=== PATIENT | female | born 1955 | race African-American/Black ===

== ENCOUNTER → 2016-03-19 | Outpatient (CLI) | payer OTHER ==
[~2016-03-19] VITALS: Ht 157.5 cm; Wt 86.2 kg
[~2016-03-19] MED LIST: ALEVE220 MG PO; AMITRIPTYLINE H25 M2 PO; ASPIRIN EC81 M1 PO; BENTYL 20 MG TA20 M1 PO; DAYPRO600 MG PO; DOXEPIN HCL100 MG PO; ENDOCET 10-3251 EACH PO; K-DUR10 MEQ PO; KLOR-CON 10 ER10 MEQ PO; LASIX 20 MG TAB20 MG PO; LASIX 40 MG TAB40 M1 PO; LISINOPRIL20 MG PO; LYRICA100 MG PO; LYRICA150 MG PO; MEDROLDOSEPACK PO; NEXIUM40 MG PO; OXYCODONE-ACET1 EAC2 PO; OXYCONTIN CR 8080 M1 PO; OXYCONTIN40 MG PO; OXYCONTIN60 MG PO; OXYCONTIN80 M1 PO; OXYCONTIN80 MG PO; PEPCID20 MG PO; PERCOCET 10-321 EACH PO; PHENERGAN 25 MG25 M1 PO; PREDNISONE50 MG PO; PROAIR HFA8.5 GM; REGLAN 5 MG TAB5 M1 GT; ZANAFLEX4 M1 PO
--- NOTE | ~2016-03-19 | HPC ---
[facility] [place] [address] PAIN MANAGEMENT CONSULTATION Name: VARUN ALAS Room #: REG [facility] German.#: [id number] Admission: 03/19/16 Attend Phys: Scooby Nathan MD Discharge: Date of : 59 Report #: [id number] THIS REPORT FOR: //name// CC: Bk Nathan DATE OF SERVICE: 03/19/2016 CHIEF COMPLAINT: Here for medication renewal. FOLLOWUP HISTORY: The patient is a 61-year-old female who has been followed in the pain clinic because of chronic pain secondary to the failed neck surgery as well as chronic low back pain. She has noted some increased pain and discomfort given the changes in the weather we are having at this juncture. She also felt that she may have injured her coccyx area. She sat down on a extension cord. This traumatized her coccyx area a bit. She has noted that over the last month or so, she had continued pain and discomfort in this area. She denies any bowel or bladder dysfunction, but does note some increased pain and discomfort and feels that it was secondary to sitting down abruptly on the extension cord. PHYSICAL EXAMINATION: Blood pressure 135/69, pulse 80, respiratory rate 16, room air saturation 95%. The patient's BMI is 34, weight 86 kg. The patient has not fallen since we saw her last. She continues to have pain and discomfort in the lower back, neck, right shoulder, left knee as well as in the buttocks area since the trauma. IMPRESSION: 1. 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 We will consider decreasing the patient's dose at the next visit. 2. Chronic low back pain with radicular history. 3. Chronic knee pain, not problematic today. 4. Pain in the sacrococcygeal area after sitting down traumatically on the extension cord. RECOMMENDATION: The patient will continue with her current medical regimen. A script for Lyrica 100 mg, 180 tablets have been dispensed, oxycodone 80 mg 30 tablets, oxycodone, tizanidine have all been written. We would like to thank you for letting us participate in her care. We hope she continues to improve. <ELECTRONICALLY SIGNED> By: Scooby Nathan MD 04/13/16 1018 [id number] Scooby Nathan MD /nt
[2016-03-19 11:53] VITALS: BP 135/69
== END ==
LOC: PAIN 07:06
DX: G89.29 Other chronic pain (principal); I10 Essential (primary) hypertension

== ENCOUNTER → 2016-05-14 | Outpatient (CLI) | payer OTHER ==
[~2016-05-14] VITALS: Ht 157.5 cm; Wt 87.1 kg
--- NOTE | ~2016-05-14 | HPC ---
[facility] [place] [address] PAIN MANAGEMENT CONSULTATION Name: VARUN ALAS Room #: REG KRYSTLE Narvaez#: [id number] Admission: 05/14/16 Attend Phys: Scooby Nathan MD Discharge: Date of : 59 Report #: [id number] THIS REPORT FOR: //name// CC: Bk Nathan DATE OF SERVICE: 05/14/2016 FOLLOWUP COMPLAINT: The pain down in my left leg is very bad. FOLLOWUP HISTORY: The patient is a 61-year-old female who has been followed in the pain clinic because of cervical radiculopathy status post failed surgery. She has failed neck syndrome. She has undergone fusion of her neck, but continues to have overall pain and discomfort involving her arm with numbness, tingling and weakness in her arm. She also has lumbar radiculopathy by history. This has been problematic over a number of years. She notes that her pain in the low back is more problematic today and causing a significant amount of pain and discomfort. She is experiencing pain in her upper back with radiation down into the left posterior thigh and down into her calf. She rates her pain as 10/10. The pain is so bad that she is unable to engage in activities of daily living. She would like to proceed with an epidural steroid injection. She has been recalcitrant to undergo this in the past because of fear. Pain has grown so great at this juncture that she was willing to proceed with an injection. PHYSICAL EXAMINATION: VITAL SIGNS: Blood pressure is 119/76, pulse 73, respiratory rate 20 and room air saturation is 100%. MUSCULOSKELETAL: The patient has pain and discomfort radiating down in her right shoulder. She also has pain in the left lower back with pain radiating down into the outside of her leg in the L5 distribution with involvement of her toes. IMPRESSION: 1. Chronic opioid therapy secondary to failed neck syndrome treated with opioid therapy. 2. Chronic knee pain. RECOMMENDATIONS: We discussed treatment options with the patient. At this juncture, we will continue to decrease her opioid use toward the CDC recommended level. She is at 60 mg b.i.d. of OxyContin. We will decrease this to 60 mg in the morning and 40 mg at bedtime. She will also continue with the use of Lyrica and Percocet 10/325 one p.o. q.i.d. as needed. PROCEDURE NOTE: The patient was placed in the prone position. Fluoroscopy was used to identify the left L5-S1 area. This area had been sterilely prepped with [address] [address] PAIN MANAGEMENT CONSULTATION Name: VARUN ALAS Room #: REG [facility] Rafiq.#: [id number] Admission: 05/14/16 Attend Phys: Scooby Nathan MD Discharge: Date of : 59 Report #: [id number] Betadine and infiltrated with 0.25% bupivacaine. A total of 80 mg Depo-Medrol, 40 mg triamcinolone and 2 mL of 0.25% bupivacaine was injected. The patient's pain decreased from 8 to 3 at the time of discharge. We would like to thank you for letting us participate in her care. We hope she continues to improve. <ELECTRONICALLY SIGNED> By: Scooby Nathan MD 05/20/16 0914 1603 2218 Scooby Nathan MD /nt
[2016-05-14 12:54] VITALS: BP 119/76
== END ==
LOC: PAIN 06:29
DX: M25.562 Pain in left knee (principal); I10 Essential (primary) hypertension

== ENCOUNTER → 2016-06-09 | Outpatient (CLI) | payer OTHER ==
[~2016-06-09] VITALS: Ht 157.5 cm; Wt 89.1 kg
--- NOTE | ~2016-06-09 | HPC ---
[facility] [place] [address] [place] [address] PAIN MANAGEMENT CONSULTATION Name: VARUN ALAS [id number] Admission: 06/09/16 Attend Phys: Scooby Nathan MD Discharge: Date of : 59 Report #: [id number] THIS REPORT FOR: //name// CC: EMMETT Nathan DATE OF SERVICE: 06/09/2016 FOLLOWUP COMPLAINT: "Here for my medications and my back pain is worse. The weather has changed." FOLLOWUP HISTORY: The patient is a 61-year-old female who has been followed in the pain clinic because of cervical radiculopathy and failed neck surgery. She also has lumbar radiculopathy. She underwent an epidural steroid injection at the last visit. She continues to have pain and discomfort, which she describes as quite problematic. She has pain in the lower portion of her back with pain radiating down to the left buttocks and down the posterior portion of her legs with numbness, weakness and tenderness. She underwent an epidural steroid injection at the last visit. She notes that her pain continues to be problematic. She is still having pain and discomfort radiating down into the leg and notes some numbness and weakness, particularly on the left side. She feels that her medications continue to be helpful and would like to have them renewed. PHYSICAL EXAMINATION: Blood pressure is 113/72, pulse 86, respiratory rate 16, room air saturation is 98%. The patient has pain and discomfort, which she describes as 8-9. It involves the lower portion of her back with pain radiating down into the legs toes and across her low back into her buttocks bilaterally. IMPRESSION: 1. Chronic opioid therapy secondary to failed neck syndrome. 2. Lumbar radiculopathy involving the L5-S1 nerve root down into the left leg, status post an epidural steroid injection with some benefit. 3. Chronic knee pain. RECOMMENDATIONS: We discussed treatment options with the patient. Risks and benefits of an epidural steroid injection were again reviewed. Possible complications were discussed. The patient continues to have pain and discomfort, which is problematic and radiates down at the L5-S1 nerve root. We discussed the option of another epidural steroid injection. Possibility of an MRI might be needed if the patient fails to improve. We explained to her that if her pain continue to be problematic, a surgical consult might prove [address] [address] PAIN MANAGEMENT CONSULTATION Name: VARUN ALAS Room #: REG CL[facility] Narvaez#: [id number] Admission: 06/09/16 Attend Phys: Scooby Nathan MD Discharge: Date of : 59 Report #: [id number] beneficial. At this juncture, she would like to continue with her conservative approach and will follow up in the next month for renewal of her medications. By: 1505 0114 Scooby Nathan MD /selena
[2016-06-09 11:10] VITALS: BP 113/72
== END | disposition home or self-care (01) ==
LOC: PAIN 07:50
DX: M54.16 Radiculopathy, lumbar region (principal); M54.12 Radiculopathy, cervical region; M25.569 Pain in unspecified knee

== ENCOUNTER → 2016-07-09 | Outpatient (CLI) | payer OTHER ==
[~2016-07-09] VITALS: Ht 157.5 cm; Wt 85.8 kg
[~2016-07-09] MED LIST changes: +IBUPROFEN 800800 M1 PO
--- NOTE | ~2016-07-09 | HPC ---
[facility] [place] [address] PAIN MANAGEMENT CONSULTATION Name: VARUN ALAS Room #: REG [facility]..#: [id number] Admission: 07/09/16 Attend Phys: Scooby Nathan MD Discharge: Date of : 59 Report #: [id number] THIS REPORT FOR: //name// CC: Bk Nathan She was seen on 07/09/[address] Valerio Nathan. PRIMARY CARE PHYSICIAN: Dr. Bk Moore. FOLLOWUP COMPLAINT: I had some trouble getting here because my ride was late. FOLLOWUP HISTORY: The patient is a 61-year-old female who has been seen and followed in the pain clinic because of chronic pain associated with failed neck syndrome. She also suffers from lumbar radiculopathy. She has been using opioid medication and find that they continued to be helpful. We have started to decrease her opioid levels to that, which is required by the CDC. She has had no complications from the reduction of her medications or from her medications at this juncture. She would like to have her medications renewed. She does feel that they continued her to engage in activities of daily living, she would not be able to without their use. She is taking the medication as prescribed. She keeps her medications away from children and in a guarded position at home. PHYSICAL EXAMINATION: Blood pressure is 100/62, pulse 73, respiratory rate 20, room air saturation 100, height 5 feet 2 inches, weight 157 pounds, BMI is 34. The patient has pain and discomfort in the lower back with radiation down into her left leg and buttocks. She also has neck pain, which is chronic in nature and it rates her pain overall as a 7/10. This is improved over the last couple of times we saw her. IMPRESSION: 1. Chronic opioid therapy for failed neck syndrome. 2. Lumbar radiculopathy involving the L5-S1 nerve root, status post epidural steroid injection. Reasonably stable at this juncture, may consider another injection in the future. 3. Chronic knee pain, stable. RECOMMENDATIONS: We discussed treatment options with the patient. We will continue to decrease her opioid use to that which is required by the CDC. We would like to thank you for letting us participate in her care. We hope she continues to improve. [address] [address] PAIN MANAGEMENT CONSULTATION Name: VARUN ALAS Room #: REG KRYSTLE Narvaez#: [id number] Admission: 07/09/16 Attend Phys: Scooby Nathan MD Discharge: Date of : 59 Report #: [id number] cc: Dr. Bk Moore. By: 1317 N. Valerio Nathan MD /nt
[2016-07-09 10:38] VITALS: BP 100/62
== END ==
LOC: PAIN 07:26
DX: M54.16 Radiculopathy, lumbar region (principal); G89.4 Chronic pain syndrome; I10 Essential (primary) hypertension; E11.9 Type 2 diabetes mellitus without complications

== ENCOUNTER → 2016-08-06 | Outpatient (CLI) | payer OTHER ==
[~2016-08-06] VITALS: Ht 157.5 cm; Wt 88.1 kg
--- NOTE | ~2016-08-06 | HPC ---
[facility] [place] [address] PAIN MANAGEMENT CONSULTATION Name: VARUN ALAS Room #: REG [facility] Solange#: [id number] Admission: 08/06/16 Attend Phys: Scooby Nathan MD Discharge: Date of : 59 Report #: [id number] THIS REPORT FOR: //name// CC: Bk Nathan DATE OF SERVICE: 08/06/2016 FOLLOWUP COMPLAINT: I am having a lot of pain in my right shoulder. I was given a compound to put on there, but [facility] say they could not do it. My sister gave me the name of a compounding pharmacy. The patient is a 61-year-old female who has been followed in the pain clinic because of chronic pain associated with failed neck syndrome. She has undergone cervical treatment a number of years ago. She continues to have pain and discomfort associated with that. She has some pain in her right shoulder, which is more problematic at this juncture. She was given a cream to apply to this area by her primary. At this juncture, she is awaiting the medication. She took it to [facility]. They were unable to finalize this. They were going to charge her over 900 dollars. She states that she has another pharmacy that was going to give it to her at a more reasonable anaya point. She feels that her medications continue to be helpful. She has had no complications from the reduction of her opioid medications. As we have described to her we will continue to decrease her opioid medications to get her into compliance with the [facility] requirements. She has returned today for renewal of her medications. She was taking OxyContin 60 mg a.m. and 40 mg at p.m. We have discussed decreasing her to 40 OxyContin b.i.d. PHYSICAL EXAMINATION: Blood pressure is 134/79, pulse 82, respiratory rate 16, room air saturation is 100%. Height 5 feet 2 inches, weight 157 pounds, BMI is 35.5. The patient complains of pain and discomfort involving particularly the right shoulder. She is able to put it through its range of motions and continues to try to increase her range of motion, but note some worsening of her pain. She is awaiting the use of the cream to her shoulder to note its efficacy. She rates her pain as an 8/10 at this juncture. Notes that changes in the weather, walking stairs and other activities can exacerbate her discomfort. IMPRESSION: 1. Chronic pain treated with opioid therapy for failed neck syndrome, opioid dose has been decreased by another 20 mg. Her total now is 40 mg OxyContin b.i.d. 2. Lumbar radiculopathy involving the L5-S1 nerve root. We will continue to monitor this and consider another epidural steroid injection in the future if needed. [address] [address] PAIN MANAGEMENT CONSULTATION Name: VARUN ALAS Room #: REG [facility].#: [id number] Admission: 08/06/16 Attend Phys: Scooby Nathan MD Discharge: Date of : 59 Report #: [id number] 3. Chronic knee pain, stable. RECOMMENDATIONS: We have rewritten her medications. The script for OxyContin 40 mg p.o. b.i.d. has been written. Percocet 10 mg 1 p.o. q.i.d. has been written. The patient will call us if she has any problems with her medications. We would like to thank you for letting us participate in her care. We hope she continues to improve. By: [id number] Scooby Nathan MD /selena
[2016-08-06 10:58] VITALS: BP 134/79
== END | disposition home or self-care (01) ==
LOC: PAIN 06:35
DX: M25.511 Pain in right shoulder (principal); M54.16 Radiculopathy, lumbar region; G89.29 Other chronic pain; M25.569 Pain in unspecified knee

== ENCOUNTER → 2016-09-01 | Outpatient (CLI) | payer OTHER ==
[~2016-09-01] VITALS: Ht 157.5 cm; Wt 87.6 kg
[2016-09-01 10:15] VITALS: BP 131/84
== END | disposition home or self-care (01) ==
LOC: PAIN 06:51
DX: G89.4 Chronic pain syndrome (principal); M54.16 Radiculopathy, lumbar region; M96.1 Postlaminectomy syndrome, not elsewhere classified; F11.20 Opioid dependence, uncomplicated; Z88.8 Allergy status to other drugs, medicaments and biological substances; Z79.82 Long term (current) use of aspirin; Z98.890 Other specified postprocedural states

== ENCOUNTER → 2016-09-29 | Outpatient (CLI) | payer OTHER ==
[~2016-09-29] VITALS: Ht 157.5 cm; Wt 88.6 kg
--- NOTE | ~2016-09-29 | HPC ---
[facility] [address] [address] PAIN MANAGEMENT CONSULTATION Name: VARUN ALAS [facility] [id number] Admission: 09/29/16 Attend Phys: Scooby Nathan MD Discharge: Date of : 59 Report #: [id number] THIS REPORT FOR: //name// CC: Bk Nathan DATE OF SERVICE: 09/29/2016 FOLLOWUP COMPLAINT: Things are going reasonably well. FOLLOWUP HISTORY: The patient is a 61-year-old female who has been seen in the pain clinic because of chronic pain involving the neck and low back area. She states that she has noted some improvement in her situation. For the first time in a long time, she feels that her pain is 6. She feels like she may be doing reasonably well. She has had no problems with withdrawal from her opioid medications. We explained to her that we need to move and continue to reduce her medications to that which has allowed by the CDC. She states that she continues keeps her medications in a guarded area. She would like to continue with her medication at this juncture. She has had no complications. She notes that when she wakes up in the morning she is somewhat uncomfortable, but after taking her medication she feels better and is able to accomplish more. PHYSICAL EXAMINATION: Blood pressure is 105/68, pulse 74, respiratory rate 16, room air saturation is 100%. Height 5 feet 2 inches, weight 195 pounds, BMI is 35. She has not fallen since we saw her. IMPRESSION: Chronic pain treated with opioid therapy. RECOMMENDATION: We will continue with the patient's current use of OxyContin 40 mg b.i.d., oxycodone 10 mg q.i.d. as needed, Lyrica 100 mg b.i.d. and tizanidine 4 mg t.i.d. as needed. She will call us if she has any problems with her medications. We would like to thank you for letting us participate in her care. We hope she continues to improve. By: [id number] Scooby Nathan MD /selena
[2016-09-29 11:07] VITALS: BP 105/68
== END | disposition home or self-care (01) ==
LOC: PAIN 07:29
DX: G89.29 Other chronic pain (principal); M54.5 Low back pain; M54.2 Cervicalgia; F11.20 Opioid dependence, uncomplicated; Z88.8 Allergy status to other drugs, medicaments and biological substances; Z79.82 Long term (current) use of aspirin; Z79.899 Other long term (current) drug therapy

== ENCOUNTER → 2016-12-03 | Outpatient (CLI) | payer OTHER ==
[~2016-12-03] VITALS: Ht 157.5 cm; Wt 91.6 kg
[~2016-12-03] MED LIST changes: +OXYCONTIN30 MG PO
--- NOTE | ~2016-12-03 | HPC ---
[facility] [address] [address] [place] [address] PAIN MANAGEMENT CONSULTATION Name: VARUN ALAS [id number] Admission: 12/03/16 Attend Phys: Scooby Nathan MD Discharge: Date of : 59 Report #: [id number] THIS REPORT FOR: //name// CC: Dr. Bk Nathan DATE OF SERVICE: 12/03/2016 FOLLOWUP COMPLAINT: "I am going to see the doctor about possibly having a surgery on my leg." FOLLOWUP HISTORY: The patient is a 61-year-old female who has been followed in the pain clinic because of chronic pain. She has had pain in her low back with pain radiating down into her legs. She states that she had an examination, which showed significant problems in her low back area. She is scheduled to see a neurosurgeon/surgeon for evaluation and possible surgery to help decrease the numbness, weakness and pain she is experiencing in the left lower extremity. She has been unable to rest because of this pain and discomfort. She is feeling somewhat upset and depressed secondary to her sons hospitalization. He was hospitalized in the Intensive Care Unit in [facility]. He suffers from asthma. He was on a ventilator for a period of time. He is out of the hospital at this juncture. She is still concerned about him. PHYSICAL EXAMINATION: Blood pressure 159/85, pulse 100, respiratory rate 20, room air saturation 100%. Height 5 feet 2 inches, weight 202 pounds, BMI is 36. The patient complains of pain and discomfort, which radiates down to the left leg with numbness, tingling and weakness down into the left leg. IMPRESSION: 1. Chronic pain treated with opioid therapy -- lumbar radicular pain involving the left leg. The patient will see a surgeon for possible surgery regarding the lower extremity pain in the next few days. 2. Chronic pain treated with opioid therapy. We have decreased her OxyContin from 40 mg b.i.d. to use 30 mg b.i.d. We would like to thank you for letting us participate in her care. We hope she continues to improve. By: 1602 0328 Scooby Nathan MD /ADI
[2016-12-03 11:02] VITALS: BP 159/85
== END | disposition home or self-care (01) ==
LOC: PAIN 11-03 13:11
DX: G89.29 Other chronic pain (principal); J45.909 Unspecified asthma, uncomplicated; Z68.36 Body mass index [BMI] 36.0-36.9, adult; M54.16 Radiculopathy, lumbar region

== ENCOUNTER → 2016-12-29 | Outpatient (CLI) | payer OTHER ==
[~2016-12-29] VITALS: Ht 157.5 cm; Wt 89.9 kg
--- NOTE | ~2016-12-29 | HPC ---
[facility] [address] [address] PAIN MANAGEMENT CONSULTATION Name: VARUN ALAS Room #: REG [facility] Narvaez#: [id number] Admission: 12/29/16 Attend Phys: Scooby Nathan MD Discharge: Date of : 59 Report #: [id number] THIS REPORT FOR: //name// CC: Bk Nathan DATE OF SERVICE: 12/29/2016 FOLLOWUP COMPLAINT: "I am thinking about going on cruise." FOLLOWUP HISTORY: The patient is a 61-year-old female who has been followed in the pain clinic. As you recall, she has chronic pain involving her neck as well as low back pain. She has seen a surgeon. She has undergone an EMG evaluation recently. She continues to have pain and discomfort in the lower back as well as in the left leg. She rates her pain as a 9/10. She has difficulty walking stairs and notes that cold weather exacerbates her discomfort. She is considering going to [place] where the weather is a bit warmer this winter to note its efficacy. PHYSICAL EXAMINATION: Blood pressure 147/92, pulse 82, respiratory rate 20, room air saturations 100. Height 5 feet 2 inches, weight 198 pounds, BMI is 36. She states that she is continuing to use her medications as prescribed. She is not having any sedation problems or limitation problems. IMPRESSION: 1. Chronic pain treated with opioid therapy -- lumbar radicular pain involving the left leg. She had an EMG study and is going to follow up with her doctor in the near future. 2. Chronic pain treated with opioid therapy. RECOMMENDATION: We will consider decreasing her OxyContin to 30 mg p.o. b.i.d. We would like to thank you for letting us participate in her care. We hope she continues to improve. <ELECTRONICALLY SIGNED> By: Scooby Nathan MD 12/31/16 0825 1240 0054 Scooby Nathan MD /[facility]
[2016-12-29 10:51] VITALS: BP 147/92
== END ==
LOC: PAIN 06:45
DX: M54.5 Low back pain (principal); M54.2 Cervicalgia

== ENCOUNTER → 2017-02-25 | Outpatient (CLI) | payer OTHER ==
[~2017-02-25] VITALS: Ht 157.5 cm; Wt 85.7 kg
[~2017-02-25] MED LIST changes: +ADVAIR 250-501 EACH INH; +ASPIRIN325 PO; +LASIX 40 MG TAB40 M2 PO; +OXYCONTIN20 M1 PO; +ZANAFLEX4 MG PO; +ZANTAC 150MG T150 MG PO
--- NOTE | ~2017-02-25 | HPC ---
[facility] [address] [address] PAIN MANAGEMENT CONSULTATION Name: VARUN ALAS Room #: REG [facility]..#: [id number] Admission: 02/25/17 Attend Phys: Scooby Nathan MD Discharge: Date of : 59 Report #: [id number] THIS REPORT FOR: //name// CC: Bk Nathan DATE OF SERVICE: 02/25/2017 FOLLOWUP COMPLAINT: "I am feeling better than I did with my cold and asthma the last visit." FOLLOWUP HISTORY: The patient is a 62-year-old female who has been followed in the pain clinic because of chronic pain. She has improved since we saw her last. She is having less pulmonary problems. She is getting her voice back. She has less laryngitis. She continues to have pain and discomfort radiating down the lower portion of her back. She states that she has been told by her physician that she does have a little bit of bulging in the back area, which could be treated with surgery. At this point, she is going to continue conservative approach. Notes that her pain is worse when she is walking stairs. She has noted worsening of her pain because of the weather. She also notes some changes in her pain because we are decreasing her opioid equivalent to that which is required by the CDC. She has had no complications from use of her medications. PHYSICAL EXAMINATION: Blood pressure 112/48, pulse 78, respiratory rate 14, room air saturation 98%. Height 5 feet 2 inches, weight 189 pounds, BMI is 34. The patient has pain and discomfort in the lower portion of her back with pain radiating down into her left leg and to buttocks area. She continues to have pain and discomfort up in her neck, status post rods and screws in the neck area for stabilization. IMPRESSION: 1. Improved upper respiratory tract infection. 2. Chronic pain to lumbar radicular area - the patient states that she would like to continue with her conservative approach rather than proceeding with surgery on her back. 3. History of cervical fusion in the neck and has arm pain. RECOMMENDATIONS: We will continue with her current medications of OxyContin 30 mg b.i.d. and a script for this medication has been written. She will call us if she has any problems with her medications. [address] [address] PAIN MANAGEMENT CONSULTATION Name: VARUN ALAS [facility] [id number] Admission: 02/25/17 Attend Phys: Scooby Nathan MD Discharge: Date of : 59 Report #: [id number] We would like to thank you for letting us participate in her care. We hope she continues to improve. <ELECTRONICALLY SIGNED> By: Scooby Nathan MD 05/18/17 1121 1608 0118 Scooby Nathan MD /selena
[2017-02-25 11:37] VITALS: BP 112/48
== END ==
LOC: PAIN 07:45
DX: G89.29 Other chronic pain (principal); M54.5 Low back pain; J45.909 Unspecified asthma, uncomplicated; J06.9 Acute upper respiratory infection, unspecified

== ENCOUNTER → 2017-03-25 | Outpatient (CLI) | payer OTHER ==
[~2017-03-25] VITALS: Ht 157.5 cm; Wt 88.6 kg
--- NOTE | ~2017-03-25 | HPC ---
[facility] [place] [address] PAIN MANAGEMENT CONSULTATION Name: VARUN ALAS Room #: REG [facility]..#: [id number] Admission: 03/25/17 Attend Phys: Scooby Nathan MD Discharge: Date of : 59 Report #: [id number] THIS REPORT FOR: //name// CC: Bk Nathan DATE OF SERVICE: 03/25/2017 FOLLOWUP COMPLAINT: "I feel like my cold might be getting worse." FOLLOWUP HISTORY: The patient is a 62-year-old female who has been followed in the pain clinic because of chronic pain involving her low back, as well as the cervical area. She states that she does have asthma. The weather has changed. She went to see her physician. She was given some antibiotics and a steroid dosing protocol per her report. She feels overall the things continue to get worse. She has stopped taking these medications. She has continued to take her asthma medications. She has not had a flu shot. Rates her pain as an 8-9. She is having pain and discomfort in the lower portion of her back, which radiates down into her left leg and buttocks. Also, has chronic neck pain with a sharp aching and shooting pain, burning pain with spasms. Pain is worse with the change in the weather. The temperature outside has been in the single digits. ALLERGIES: CODEINE. CURRENT MEDICATIONS: Tizanidine 4 mg 1 p.o. t.i.d., Lyrica 100 mg, oxycodone 325 one p.o. q. 6 hours p.r.n., OxyContin 30 mg 1 p.o. b.i.d., ibuprofen 800 mg, albuterol 8.5 mg, doxycycline 20 mg 4 times daily, Phenergan 25 mg once b.i.d. or t.i.d., potassium 10 mEq, aspirin 81 mg, lisinopril 20 mg. PHYSICAL EXAMINATION: VITAL SIGNS: Blood pressure 103/49, pulse 75, respiratory rate 16, room air saturation 95%. Height 5 feet 2 inches, weight 195 pounds, BMI is 35. GENERAL: Well-developed, well-nourished female, appears her stated age. Orientation: Alert and oriented, affect appropriate. HEENT: Atraumatic. Eyes are a little red. Sclerae are nonicteric. The patient does cough a bit. EXTREMITIES: Midline seems to be normal alignment without scoliosis or kyphosis. The patient walks slow motion. Walks in a slightly bent over gait. Complains of pain and discomfort in the lower portion of back as well as in the neck area. Complains of pain down in the legs. IMPRESSION: 1. Lumbar radiculopathy and chronic pain, history of cervical fusion with pain and discomfort in the neck and arms. 2. Upper respiratory tract infection. [facility] [address] [place] [address] PAIN MANAGEMENT CONSULTATION Name: VARUN ALAS Room #: REG [facility].#: [id number] Admission: 03/25/17 Attend Phys: Scooby Nathan MD Discharge: Date of : 59 Report #: [id number] RECOMMENDATIONS: We discussed treatment options with the patient. The patient denies use of tobacco. We explained that the flu is an epidemic proportions at this juncture. It is nationwide. The patient states that she has not gotten a flu shot. We encouraged her to do so. We reviewed reminded her of the number of people who are dying at this juncture even those who are in good health as a result of flu. The patient states that she has been trying to stay total wrist without being around people at this juncture. She finds that her medications continue to be helpful. She is still concerned about her breathing and will follow up with her primary care to see whether or not there are other options to improve her breathing. She has not had any fever, chills or anything that would make her think that she has flu at this juncture. We have given the patient a number of mass to wear when she is out in the public. She has also been given some rubber glove to wear. We did spoke with her and reminded her that if she did not need to go out in the public, she probably would feel much better if she had family members to bring her items until this flu season starts to kasie. A script for her medications of Lyrica, Percocet and OxyContin have been written. The patient will follow up in the future as needed. We would like to thank you for letting us participate in her care. We hope she continues to improve. <ELECTRONICALLY SIGNED> By: Scooby Nathan MD 04/08/17 1332 1416 [id number] Scooby Nathan MD /[facility]
[2017-03-25 10:20] VITALS: BP 103/49
== END ==
LOC: PAIN 06:50
DX: M54.16 Radiculopathy, lumbar region (principal); J45.909 Unspecified asthma, uncomplicated; J06.9 Acute upper respiratory infection, unspecified

== ENCOUNTER → 2017-04-27 | Outpatient (CLI) | payer OTHER ==
[~2017-04-27] VITALS: Ht 157.5 cm; Wt 91.2 kg
--- NOTE | ~2017-04-27 | HPC ---
[facility] [address] [address] PAIN MANAGEMENT CONSULTATION Name: VARUN ALAS [id number] Admission: 04/27/17 Attend Phys: Scooby Nathan MD Discharge: Date of : 59 Report #: [id number] THIS REPORT FOR: //name// CC: Bk Nathan DATE OF SERVICE: 04/27/2017 FOLLOWUP COMPLAINT: The pain is still bad. FOLLOWUP HISTORY: The patient is a 62-year-old female who has been followed in the pain clinic. As you recall, she suffers from upper neck pain. She has had a significant hardware in the neck area. She also has pain and discomfort, which has been radiating down into her legs. It involves her buttocks. She also continues to have some pain and discomfort with her knees. Rates her pain as an 8.5. She continues to take her medications. She feels that the opioid medications, continue to enable her to be ambulatory and able to participate in activities of daily living. She lives alone. Notes that the pain has worsened with walking, climbing stairs, particularly in this bad weather. She has been trying to stay out of the public. Given the prevalence of flu virus. She has asthma. Feels that her asthma is about baseline at this juncture, but still problematic. Finds that rest, heat and cold can sometimes be helpful. She sometimes takes Epsom salt baths. States that she keeps her medications in a guarded area. She is mindful of the changes that are taking place in regards to use of opioid medications. We described the need for her to continue to have her medications lowered to the [facility] guidelines. She has furosemide 40 mg oxycodone tablets at home. We have discussed using an additional 20 mg oxycodone, so that we will bring her down to a level of 60 mg per day. According to with her other opioid medications should work reasonably well without any signs of withdrawal. She states that she does not have any signs of withdrawal. She does not feel that these medications are problematic with her asthma. ALLERGIES: CODEINE. MEDICATIONS: Current medications which were reviewed include tizanidine 4 mg 1 p.o. t.i.d., Lyrica 100 mg, oxycodone 325 mg one p.o. q. 6 hours p.r.n., OxyContin 30 mg 1 p.o. b.i.d., ibuprofen 800 mg, albuterol 8.5, doxycycline 20 mg q.i.d., Phenergan 25 mg p.o. b.i.d. or t.i.d. as needed, potassium 10 mEq, aspirin 81 mg and her lisinopril 20 mg. PHYSICAL EXAMINATION: GENERAL: The patient is a well-developed female, appears her stated age. ORIENTATION: The patient is alert and oriented x 3. Affect the patient's affect appears appropriate. [address] [address] PAIN MANAGEMENT CONSULTATION Name: BISHOPVARUN ROCKY Room #: REG [facility]#: [id number] Admission: 04/27/17 Attend Phys: Scooby Nathan MD Discharge: Date of : 59 Report #: [id number] HEENT: Normocephalic, atraumatic. Extraocular eye muscles intact. No significant congestion, hearing within normal limits. Buccal membranes moist. NECK: Somewhat limited in his range of motion left and right as well as extension and flexion. MUSCULOSKELETAL: Normal alignment without significant scoliosis, kyphosis or lordosis. The patient does walk with a slow and antalgic walk. Has a slight stuporous bent over walking position. Complains of pain and discomfort in lower extremities as well as in her back. Complains of pain in her neck legs. Also complains of knee pain and discomfort. IMPRESSION: 1. History of lumbar radiculopathy with back pain. 2. History of cervical fusion with pain and discomfort in the upper neck and arms. 3. Upper respiratory tract infection in the past. The patient to stay out of the public areas. Given that the fluid is quite problematic. 4. Hypertension. RECOMMENDATIONS: We discussed treatment options with the patient. The patient has 40 mg oxycodone tablets at home. She has a month's worth. We will provide her with 20 mg oxycodone tablets. She will take 40 mg in the morning and 20 mg in the evening. That in conjunction with her additional opioid medication should prevent her from having any withdrawals. We will strive to decrease her level to 50 mg OxyContin per day at the next visit. We have provided the patient with Percocet and the OxyContin. She will call us if she has any problems with her medications. We would like to thank you for letting us participate in her care. If we could place pain clinic. ASSESSMENT: 1. History of osteoarthritis in a number of joint not being treated for rheumatoid arthritis. 2. Height 5 feet 2 inches, weight 201 pounds, BMI 36. 3. Vital Signs: Blood pressure 117/75, pulse 80, respiratory rate 16, room air saturation 97%. 4. Pain intensity 8/10. 5. Fall risk. The patient fell and is seen an orthopedic surgeon. This was within the last 3 months. 6. The patient is not on blood thinners. 7. The patient is being treated for hypertension. 8. Opioid contract, patient has signed a contract on 10/24/2015. New contract has been signed. This signed in the future. 9. Risk assessment tool. 10. Functional assessment tool in regards to general activity, mood, walking, work relationships, sleep and environment. 11. Opioid risk assessment tool indicates 1/8, which indicates a low risk. 12. Recreational drugs. The patient denies use of any recreational drugs. [facility] [address] [place] [address] PAIN MANAGEMENT CONSULTATION Name: VARUN ALAS Room #: REG [facility]#: [id number] Admission: 04/27/17 Attend Phys: Scooby Nathan MD Discharge: Date of : 59 Report #: [id number] 13. Tobacco: The patient has never smoked. 14. Alcohol: The patient denies use of any alcoholic beverages. <ELECTRONICALLY SIGNED> By: Scooby Nathan MD 05/18/17 1434 0910 [id number] Scooby Nathan MD /[facility]
[2017-04-27 10:59] VITALS: BP 117/75
== END ==
LOC: PAIN 06:52
DX: M54.16 Radiculopathy, lumbar region (principal); I10 Essential (primary) hypertension; J06.9 Acute upper respiratory infection, unspecified; M54.2 Cervicalgia; Z88.5 Allergy status to narcotic agent

== ENCOUNTER → 2017-05-25 | Outpatient (CLI) | payer OTHER ==
[~2017-05-25] VITALS: Ht 157.5 cm; Wt 91.4 kg
[~2017-05-25] MED LIST changes: -ADVAIR 250-501 EACH INH; -ASPIRIN325 PO; -LASIX 40 MG TAB40 M2 PO; -ZANAFLEX4 MG PO; -ZANTAC 150MG T150 MG PO
--- NOTE | ~2017-05-25 | HPC ---
[facility] [place] [address] PAIN MANAGEMENT CONSULTATION Name: VARUN ALAS Room #: REG Kary Porter.#: [id number] Admission: 05/25/17 Attend Phys: Scooby Nathan MD Discharge: Date of : 59 Report #: [id number] THIS REPORT FOR: //name// CC: Dr. Bk Nathan DATE OF SERVICE: 05/25/2017 FOLLOWUP COMPLAINT: Here for medication refill. Have worsening of pain in the neck, shoulders, and mid back. FOLLOWUP HISTORY: The patient is a 62-year-old female who has been followed in the pain clinic because of chronic pain. As you recall, she has significant problems with her neck. She has had fusion with instrumentation. She continues to have pain and discomfort in the lower portion of her back, which radiates down into her legs. States that she is having more difficulty in ambulating and engage in activities of daily living because of her increasing pain and discomfort. She feels that her medications are helpful. She denies any problems with the medications. She did not have any significant bowel or bladder dysfunction. She does note that since the weather has changed she has had more pain and discomfort. Her asthma appears to be baseline at this juncture. She is aware of the new regulations regarding opioid medications. She is aware that we will have to continue to decrease her medications to get her in compliance. She is planning on going on vacation this summer. She would like to have her medications provided that she could take them with her during the next 3 months. ALLERGIES: CODEINE. REVIEW OF MEDICATIONS: Tizanidine 4 mg 1 p.o. t.i.d., Lyrica 100 mg, oxycodone 325 one p.o. every 6 hours p.r.n. pain, OxyContin 30 mg 1 p.o. b.i.d., ibuprofen 800 mg, albuterol 8.5, doxycycline 20 mg q.i.d., Phenergan 25 mg p.o. b.i.d./t.i.d. as needed, potassium 10 mEq, aspirin 81 mg, lisinopril 20 mg. PHYSICAL EXAMINATION: GENERAL: The patient is a well-developed black female. She appears her stated age. Does complain of some increased pain and discomfort today because of changing weather. ORIENTATION: The patient is alert and oriented x 3. The patient's affect is appropriate. HEAD, EYES, EARS, NOSE, AND THROAT: Normocephalic, atraumatic. Extraocular eye muscles intact. No significant congestion. Hearing within normal limits. Moist buccal membranes. Neck somewhat limited in range of motion to the left, right as well as extension and flexion. MUSCULOSKELETAL: The patient walks with a somewhat forward flex posture. [address] [address] PAIN MANAGEMENT CONSULTATION Name: VARUN ALAS Room #: REG [facility].#: [id number] Admission: 05/25/17 Attend Phys: Scooby Nathan MD Discharge: Date of : 59 Report #: [id number] Normal muscle alignment without significant scoliosis, kyphosis or lordosis. Lower extremity, the patient does complain of some increased pain and discomfort in the lower portion of her back with radiation down into her legs. Complains of some pain and discomfort in the upper neck as well as in her legs. Has some knee discomfort as well. IMPRESSION: 1. History of lumbar radiculopathy with back pain. 2. History of cervical fusion with pain and discomfort in the upper neck and arms. 3. Upper respiratory tract infection in the past, asthma, stable today. 4. Hypertension. RECOMMENDATIONS: We discussed treatment options with the patient. We will continue with her OxyContin. She will be provided her medications of 30 mg p.o. b.i.d. this month. We will then start to move toward the 20 mg decreased per month in her medications. She will monitor herself for any withdrawal. ASSESSMENT: 1. History of osteoarthritis and number of joints and the patient is not currently being treated for rheumatoid arthritis. 2. Height 5 feet 2 inches, weight 201 pounds, BMI is 36. 3. Vital signs: Blood pressure 121/81, pulse 86, respiratory rate 16 on room air saturation 97%. 4. Pain intensity 8/10. 5. Fall risk. The patient has not fallen in the last 3 months. 6. The patient is not on a blood thinner. 7. The patient is being treated for hypertension. 8. Opioid contract. The patient has contracted and gets her medications only from the pain clinic. 9. Risk assessment tool rated as 1/8 which is considered mild low risk. 10. The patient denies use of recreational drugs. 11. Tobacco: The patient has never smoked. 12. Alcohol. The patient denies use of alcoholic beverages. We would like to thank you for letting us to participate in her care. We hope she continues to improve. <ELECTRONICALLY SIGNED> By: Scooby Nathan MD 06/03/17 0825 0912 [id number] Scooby Nathan MD /[facility]
[2017-05-25 11:21] VITALS: BP 121/81
== END ==
LOC: PAIN 06:51
DX: M54.2 Cervicalgia (principal); M54.5 Low back pain; M25.511 Pain in right shoulder; M25.512 Pain in left shoulder; M54.16 Radiculopathy, lumbar region; I10 Essential (primary) hypertension; Z79.891 Long term (current) use of opiate analgesic

== ENCOUNTER → 2017-06-22 | Outpatient (CLI) | payer OTHER ==
[~2017-06-22] VITALS: Ht 157.5 cm; Wt 90.8 kg
--- NOTE | ~2017-06-22 | HPC ---
[facility] [place] [address] PAIN MANAGEMENT CONSULTATION Name: VARUN ALAS Room #: REG Kary Solange#: [id number] Admission: 06/22/17 Attend Phys: Scooby Nathan MD Discharge: Date of : 59 Report #: [id number] THIS REPORT FOR: //name// CC: Bk Nathan DATE OF SERVICE: 06/22/2017 FOLLOWUP COMPLAINT: "I did go on my first trip. Still having some pain and discomfort, which has gotten worse with the weather change." FOLLOWUP HISTORY: The patient is a 62-year-old female, who has been followed in the pain clinic because of chronic pain. As you recall, she has had fusion of her neck with instrumentation. Continues to have pain and discomfort in the upper extremity. Also, has pain and discomfort, which radiates down into her low back and into her legs. She has had some discomfort in the neck area down in her shoulders and mid back. Feels that her medications are helpful. She has noted some decreased pain relief. We have decreased her medication over the past few months. She feels at this juncture that we should leave the medication at its current level to help her remain functional. She does have another couple of vacation she would like to attend. Feels that if we decrease her medication before that time that she would not be able to go on to vacation and get much jolly out of this. Denies any problems with her medications. Feels that her sensorium is clear. Keeps her medications in a controlled environment. She is aware of the media reports regarding use of opioids and the problems that they can cause. We would like to continue with her current medication renewal. States that she is taking them as prescribed. ALLERGIES: CODEINE. MEDICATIONS: Tizanidine 4 mg 1 p.o. t.i.d., Lyrica 100 mg, oxycodone 325 one p.o. every 6 hours p.r.n. pain, OxyContin 30 mg 1 p.o. b.i.d., ibuprofen 800 mg, albuterol 8.5, doxycycline 20 mg q.i.d., Phenergan 25 mg p.o. b.i.d./t.i.d. as needed, potassium 10 mEq, aspirin 81 mg, lisinopril 20 mg. PAIN CLINIC ASSESSMENT: 1. History of osteoarthritis. The patient feels that she has significant osteoarthritic changes in her hips, back, shoulders as well as some changes in her neck as a result of instrumentation and fusion of her neck. 2. Height 5 feet 2 inches, weight 200 pounds, BMI is 36.6. 3. VITAL SIGNS: Blood pressure 123/82, pulse 86, respiratory rate 20, room air saturation 100%. 4. Pain intensity 10/10. 5. Fall risk. The patient has not fallen in the last 3 months. She continues to be followed by her orthopedic surgeon. [address] [address] PAIN MANAGEMENT CONSULTATION Name: VARUN ALAS [id number] Admission: 06/22/17 Attend Phys: Scooby Nathan MD Discharge: Date of : 59 Report #: [id number] 6. Blood thinner. The patient is not on a blood thinner. 7. History of hypertension. The patient is being treated for hypertension. 8. Opioid therapy greater than 6 weeks. The patient is receiving opioid therapy through the pain clinic and gets her medication from one source. 9. Risk assessment tool, low. 10. Functional assessment tool, 51/, showing impact of her pain on her daily activities. 11. Recreational drug use. Denies ever using recreational drugs. 12. Tobacco: The patient has never smoked. 13. Alcohol. The patient denies use of alcoholic beverages. PHYSICAL EXAMINATION: GENERAL: The patient is a well-developed black female. She appears her stated age. She complains of increasing pain and discomfort today because of change in the weather. Orientation: The patient is alert and oriented x 3. The patient's affect is appropriate. Speech is fluent. HEENT: Normocephalic, atraumatic. Extraocular eye muscles intact. Sclerae nonicteric, Hearing is within normal limits. Mucous membranes are moist. MUSCULOSKELETAL: The patient walks with a somewhat forward flexed posture. Walks in a very stiff manner. Complains of pain and discomfort in the lower portion of her back as well as down into her legs with some discomfort in the area of the knees. No significant scoliosis, kyphosis or lordosis. The patient has some pain in the upper extremities and complains of pain and discomfort in her arms and down into her hands. IMPRESSION: 1. History of cervical fusion with continued pain in the upper extremity and in her arms. 2. History of lumbar radicular pain involving the low back area. 3. Upper respiratory problems with asthma, stable today. 4. Hypertension. RECOMMENDATIONS: We discussed treatment options with the patient. We will continue with her current use of OxyContin. We will continue over the next few months to decrease the patient's medication level to that which is required by the CDC. She states that she would like to remain at this level for this next period, so that she can complete her vacation tour. A prescription for OxyContin 30 mg 1 p.o. b.i.d. and Percocet 10/325 one p.o. q.i.d. have been written. The patient will call us if she has any problems with her medications. We would like to thank you for letting us participate in her care. We hope she continues to improve. <ELECTRONICALLY SIGNED> By: Scooby Nathan MD 06/28/17 0823 1325 16 Scooby Nathan MD /nt
[2017-06-22 10:39] VITALS: BP 123/82
== END ==
LOC: PAIN 06:56
DX: I10 Essential (primary) hypertension (principal); G89.29 Other chronic pain; F11.90 Opioid use, unspecified, uncomplicated

== ENCOUNTER → 2017-07-22 | Outpatient (CLI) | payer OTHER ==
[~2017-07-22] VITALS: Ht 157.5 cm; Wt 87.8 kg
--- NOTE | ~2017-07-22 | HPC ---
[facility] [place] [address] PAIN MANAGEMENT CONSULTATION Name: VARUN ALAS Room #: REG BABSKary Narvaez#: [id number] Admission: 07/22/17 Attend Phys: Scooby Nathan MD Discharge: Date of : 59 Report #: [id number] THIS REPORT FOR: //name// CC: Bk Nathan DATE OF SERVICE: 07/22/2017 FOLLOWUP COMPLAINT: "I am going to go on a cruise." FOLLOWUP HISTORY: The patient is a 62-year-old female, who has been followed in the pain clinic because of chronic pain involving her neck. As you recall, she has instrumentation in place. There has been fusion of a number of vertebrae. She also has pain and discomfort in her back, which radiates down into the posterior portion of her legs. She has some generalized pain and myofascial discomfort as well. Finds that her medications continue to be helpful. She rates her pain as a 7/10. She is quite excited regarding the imminent cruise. She states that she is going to stop it about 5 different places including [place] in the [facility]. She has some pain and discomfort involving her right shoulder. Feels that there is some increased pain as well as problems with the right shoulder. She feels that she is dropping items because of this. She denies any new bowel or bladder dysfunction. She has had no problems with her medications. Feels that she is thinking clearly without fogginess. No new problems with bowel or bladder complaints. States that she continues to keep her medications in a guarded area. She is aware of the possible complications of opioid use, which could include addiction as well as tolerance. Feels that her medications are working reasonably well and would like to continue their use. ALLERGIES: CODEINE. MEDICATIONS: Tizanidine 4 mg 1 p.o. t.i.d., Lyrica 100 mg, oxycodone 325 one p.o. q. 6 hours p.r.n. pain, OxyContin 30 mg 1 p.o. b.i.d., ibuprofen 800 mg, albuterol 8.5, doxycycline 20 mg q.i.d., Phenergan 25 mg p.o. b.i.d., t.i.d. as needed, potassium 10 mEq, aspirin 81 mg, lisinopril 20 mg. PAIN CLINIC ASSESSMENT: 1. History of osteoarthritis. The patient does have some significant osteoarthritic changes in her neck. She has had surgery with instrumentation and fusion. Complains of pain and discomfort, which is worsening on her right shoulder. 2. Height 5 feet 2 inches, weight 193 pounds, BMI 35. 3. VITAL SIGNS: Blood pressure 113/70, pulse 70, respiratory rate 20, room air saturation 100%. 4. Pain intensity 09/13. 5. Fall risk. The patient has not fallen in the last 3 [place] [address] PAIN MANAGEMENT CONSULTATION Name: VARUN ALAS Room #: REG CLKary Narvaez#: [id number] Admission: 07/22/17 Attend Phys: Scooby Nathan MD Discharge: Date of : 59 Report #: [id number] 6. Blood thinner. The patient is not on a blood thinning agent. 7. Hypertension. The patient is being treated for hypertension. 8. Opioid therapy greater than 6 weeks. The patient gets her medication from one source which is the pain clinic. 9. Risk assessment, low for an opioid use. 10. Functional assessment tool, 51/70 indicating moderate problems with activities of daily living secondary to the pain. 11. Tobacco use. The patient denies use of tobacco. 12. Alcohol: The patient denies frequent use of alcoholic beverages. PHYSICAL EXAMINATION: GENERAL: The patient is a well-developed, well-nourished black female. She appears her stated age. She is alert and oriented x 3. Affect is appropriate. Speech is fluent. HEENT: Normocephalic, atraumatic. Extraocular eye muscles intact. Sclerae nonicteric. Hearing is within normal limits. Mucous membranes are moist. HEART: Regular rate. S1, S2. NECK: Some limitation in motion with flexion, extension, left and right lateral rotation since the fusion in the cervical area. The patient has pain and discomfort involving the right shoulder. She is contemplating an x-ray to have it evaluated for pathology. The low back area without significant kyphosis, lordosis or scoliosis. The patient does walk with slow and somewhat antalgic walk. IMPRESSION: 1. History of cervical fusion with continued pain in the upper extremity and worsening of pain in the right arm/shoulder. 2. History of lumbar radicular pain involving the low back. 3. Upper respiratory problems with asthma - stable today. 4. Hypertension. RECOMMENDATIONS: We discussed treatment options with the patient. At this juncture, we will continue with her current medications. She received her medications early, given that she is going to go on vacation. She will take the medications as prescribed. She will call us if she has any problems or concerns. Overall, things are going reasonably well and the patient has been dispensed tizanidine 4 mg p.o. t.i.d., Lyrica 100 mg, oxycodone 10/325, 120 tablets, OxyContin 30 mg 1 p.o. b.i.d. We would like to thank you for letting us participate in her care. We hope she continues to improve. By: [id number] Scooby aNthan MD /nt
[2017-07-22 10:47] VITALS: BP 113/73
== END ==
LOC: PAIN 07:22
DX: M54.16 Radiculopathy, lumbar region (principal); M54.12 Radiculopathy, cervical region; J45.909 Unspecified asthma, uncomplicated; I10 Essential (primary) hypertension; Z88.5 Allergy status to narcotic agent

== ENCOUNTER → 2017-08-19 | Outpatient (CLI) | payer OTHER ==
[~2017-08-19] VITALS: Ht 157.5 cm; Wt 90.9 kg
--- NOTE | ~2017-08-19 | HPC ---
[facility] [place] [address] PAIN MANAGEMENT CONSULTATION Name: VARUN ALAS Room #: REG KRYSTLE Solange#: [id number] Admission: 08/19/17 Attend Phys: Scooby Nathan MD Discharge: Date of : 59 Report #: [id number] THIS REPORT FOR: //name// CC: Bk Nathan DATE OF SERVICE: 08/19/2017 FOLLOWUP COMPLAINT: "Still excited about going on my cruise. My asthma has gotten worse." FOLLOWUP HISTORY: The patient is a 62-year-old female who has been followed in the Pain Clinic for quite a number of years. Has chronic pain involving her neck. As you recall, she has a fusion of the neck with plates and instruments in the upper neck area. She also has pain and discomfort in her low back area, which radiates down into her legs. She has noticed some increased swelling in her legs bilaterally. States that she was walking and felt that she somewhat turned her right ankle. It has been quite problematic. She does not feel that she broke anything, but may have stressed and strained some ligaments. She is becoming more excited with the thought of going on her vacation on a cruise ship. She denies any bowel or bladder dysfunction. The patient feels like she is thinking clearly. Has not had any problems with her bowel or bladder dysfunction. She feels like her medications continue to be helpful. Continues to see more and more information in the media in regards to use of opioids, their abilities cause addiction as well as development of tolerance. She feels that her medications are working reasonably well and would like to continue their use. ALLERGIES: CODEINE. MEDICATIONS: Tizanidine 4 mg 1 p.o. t.i.d., Lyrica 100 mg, oxycodone one p.o. q. 6 hours p.r.n., OxyContin 30 mg 1 p.o. b.i.d., ibuprofen 800 mg, albuterol, doxycycline 20 mg q.i.d., and Phenergan 25 mg b.i.d. to t.i.d. PAIN CLINIC ASSESSMENT: 1. History of osteoarthritis. The patient has some osteoarthritic changes in her neck. Has instrumentation with fusion, pain in the shoulder, the right. 2. Height 5 feet 2 inches, weight 200 pounds, BMI is 36. 3. VITAL SIGNS: Blood pressure 110/65, respiratory rate 16, room air saturations 100%, pain intensity 9/10. 4. Fall risk. The patient has not fallen in the last 3 months. 5. Blood thinner. The patient is not a blood thinning medication. 6. Hypertension. The patient is being treated for hypertension. 7. Opioid therapy greater than a week. The patient receives her medication on a regular basis from the Pain Clinic. 8. Risk assessment, low for opioid use. [address] [address] PAIN MANAGEMENT CONSULTATION Name: VARUN ALAS Room #: REG [facility] [id number] Admission: 08/19/17 Attend Phys: Scooby Nathan MD Discharge: Date of : 59 Report #: [id number] 9. Functional assessment tool 57 indicating moderate problems with activities of daily living secondary to pain. 10. Tobacco use. The patient denies use of tobacco use. 11. Alcohol: The patient denies frequent use of alcoholic beverages. PHYSICAL EXAMINATION: GENERAL: The patient is a well-developed, well-nourished black female. She appears her stated age. She is alert and oriented x 3. Her affect is appropriate. Speech is fluent. HEENT: Normocephalic, atraumatic. Extraocular eye muscles are intact. Sclerae nonicteric. Hearing is within normal limits. Mucous membranes are moist. NECK: Without adenopathy, limited movement, some well-healed scars. HEART: Regular rate, S1, S2. LUNGS: Somewhat distant. The patient's voice sounds slightly weakened. States that this is secondary to some worsening of her asthma. MUSCULOSKELETAL: Without significant scoliosis, kyphosis or lordosis. Lower muscle strength appears to be 5/5 for the major muscle groups. The patient has some swelling in her feet bilaterally. Does own a pair of open-____ shoes with edema noted in the dorsum of her feet and up unto the ankles. The patient does walk slow with an antalgic gait. IMPRESSION: 1. History of cervical fusion with continued pain in the upper extremity and worsening pain in the right arm and shoulder. 2. History of lumbar radicular pain involving the low back. 3. Upper respiratory problems, asthma, somewhat affected by the change in the weather today. The patient feels that there may be a change in the weather pattern and this has exacerbated her discomfort. 4. Hypertension. RECOMMENDATIONS: We discussed treatment options with the patient. At this juncture, she feels that her medications are helpful. She does not have any problem with the medications. She would like to continue the medications. She is enthused about undergoing a cruise in the next few weeks. Feels that her medications are helpful. She would like to have renewal of her medications of tizanidine 4 mg t.i.d., Lyrica 100 mg, oxycodone 10/325 mg, and OxyContin 30 mg 1 p.o. b.i.d. We would like to thank you for letting us participate in her care. A script for these medications has been dispensed. By: [id number] Scooby Nathan MD /nt
[2017-08-19 10:22] VITALS: BP 110/65
== END ==
LOC: PAIN 06:47
DX: I10 Essential (primary) hypertension (principal); J45.909 Unspecified asthma, uncomplicated

== ENCOUNTER → 2017-09-21 | Outpatient (CLI) | payer OTHER ==
[~2017-09-21] VITALS: Ht 157.5 cm; Wt 88.5 kg
--- NOTE | ~2017-09-21 | HPC ---
[facility] [address] [address] PAIN MANAGEMENT CONSULTATION Name: VARUN ALAS Room #: REG [facility]..#: [id number] Admission: 09/21/17 Attend Phys: Pola Casanova DO Discharge: Date of : 59 Report #: [id number] THIS REPORT FOR: //name// CC: Dr. Bk Moore DATE OF SERVICE: 09/21/2017 REFERRING PHYSICIAN: Dr. Bk Moore. CHIEF COMPLAINT: Chronic back pain, bilateral lower extremity pain and right arm pain. HISTORY OF PRESENT ILLNESS: As you know, the patient is a 62-year-old female followed by my partner, Dr. Valerio Nathan for medication management to address lumbar radicular symptoms, chronic neck pain, bilateral knee pain and right arm pain. The patient indicates pain is aching, constant and dull in sensation, places pain score 4/10, states that moving and sitting exacerbate symptoms, medications and repositioning tends to improve pain. The patient has recently returned from a cruise where she did well even with the reduction in medication. She returns requesting refill on medications for the next month with plans to begin weaning opioids further at next visit. She returns requesting refill on medication, denying any side effects with its use. ALLERGIES: CODEINE. CURRENT MEDICATIONS: Lisinopril, aspirin, potassium chloride, promethazine, dicyclomine, albuterol, oxycodone, pregabalin, and OxyContin. SOCIAL HISTORY: The patient reports she is a nonsmoker. Denies IV or illicit drug use. She is on disability. She is unaccompanied today. PQRS: The patient has history of osteoarthritis involving her neck, low back, and bilateral shoulders. She does not have a diagnosis of rheumatoid arthritis. She is not a fall risk, has not had a fall in the last 3 months. She is placing pain today at 8/10. She is treated for hypertension. No blood thinners. She has been on opioids for greater than 6 weeks. She has a low risk of opioid abuse. Functional assessment pain impact score 51/70, severe interference. PHYSICAL EXAMINATION: VITAL SIGNS: Blood pressure 122/77, pulse 72, respiratory rate 14 and unlabored, the patient is 100% on room air, height 5 feet 2 inches tall, weight 195 pounds, BMI calculated 35.7. GENERAL: Well-developed, well-nourished, well-hydrated, exogenously obese [address] [address] PAIN MANAGEMENT CONSULTATION Name: VARUN ALAS Room #: REG [facility].#: [id number] Admission: 09/21/17 Attend Phys: Pola Casanova DO Discharge: Date of : 59 Report #: [id number] 62-year-old female, appearing stated age, placing current pain score at 8/10. HEENT: Normocephalic, atraumatic. Pupils are equal, round, and reactive to light. EXTREMITIES: Show no clubbing, no cyanosis, and no edema. MUSCULOSKELETAL: There is some palpatory tenderness noted over the paraspinal musculature, cervical spinous process tenderness. There is noted no scoliosis, kyphosis, or lordosis changes grossly when evaluating the patient. Standing does not change overall pain. She does have a slow antalgic gait. ASSESSMENT: 1. Cervical radiculopathy. 2. Failed cervical spine surgery. 3. Chronic lumbar radicular symptoms. 4. Opioid dependency. 5. Complicated medical therapy utilizing scheduled medications. 6. Chronic intractable pain. PLAN: 1. The patient returns today in followup visit requesting refill on medications. I have noted in the chart that there has been a slow weaning process of opioid medication in hopes of obtaining a more appropriate medication dosing below 90 morphine equivalents per the CDC's recommended guidelines. At present, the patient is at 150 morphine equivalents a day, taking her current medication. She requests refill on medications with plans to reduce at next visit. We would recommend a reduction at next visit to 30 mg b.i.d. OxyContin, a total of 60 mg equaling 90 morphine equivalents a day with a reduction of the Percocet 10/325 three a day to 5 mg 3 to 4 times a day. The visit following then, I would recommend discontinuation of the Percocet, continuation of the OxyContin 30 mg twice a day for 1 month, then reduce the OxyContin to 20 mg twice a day, reinitiate the oxycodone at 5 mg dose. I will defer to Dr. Nathan for this weaning. 2. The patient was provided a prescription of OxyContin 30 mg dose 1 tab p.o. b.i.d., #60, no refills. 3. The patient was provided a refill prescription of Percocet 10/325 one tab every 6 hours p.r.n. for pain, #120, no refills. 4. The patient to return to see Dr. Valerio Nathan for continuation of weaning of opioids to reach less than 90 morphine equivalents a day. By: [id number] Pola Casanova, DO /nt
[2017-09-21 10:17] VITALS: BP 122/77
== END ==
LOC: PAIN 05:58
DX: M54.12 Radiculopathy, cervical region (principal); G89.4 Chronic pain syndrome; F11.20 Opioid dependence, uncomplicated; Z79.899 Other long term (current) drug therapy

== ENCOUNTER → 2017-10-19 | Outpatient (CLI) | payer OTHER ==
[~2017-10-19] VITALS: Ht 157.5 cm; Wt 89.4 kg
[2017-10-19 10:00] VITALS: BP 124/77
== END ==
LOC: PAIN 06:58
DX: M54.2 Cervicalgia (principal); M54.5 Low back pain; G89.29 Other chronic pain; M25.511 Pain in right shoulder; M25.561 Pain in right knee; I10 Essential (primary) hypertension; Z79.899 Other long term (current) drug therapy

== ENCOUNTER → 2017-12-16 | Outpatient (CLI) | payer OTHER ==
[~2017-12-16] VITALS: Ht 157.5 cm; Wt 91.0 kg
[~2017-12-16] MED LIST changes: +LASIX 40 MG TAB40 M2 PO; +ZANAFLEX4 MG PO
--- NOTE | ~2017-12-16 | HPC ---
[facility] [address] [address] PAIN MANAGEMENT CONSULTATION Name: VARUN ALAS Room #: REG [facility]..#: [id number] Admission: 12/16/17 Attend Phys: Fina Hammonds Discharge: Date of : 59 Report #: [id number] THIS REPORT FOR: //name// CC: Fina Bourgeois DATE OF SERVICE: 12/16/2017 CHIEF COMPLAINT: The patient seen today for all over body pain, chronic cervical radiculopathy, chronic pain, followup. HISTORY OF PRESENT ILLNESS: This is a pleasant 62-year-old female followed in the pain clinic, is normally seen by Dr. Valerio Nathan. She has significant pain in her neck, in her lower back and her legs and knees. The patient states today that the weather has increased her pain significantly, that she can hardly move today. She states that she has had no new injuries, just feels that the weather is making it worse. She feels that her medications are normally helpful except during this time. Denies constipation or somnolence. ALLERGIES: CODEINE. CURRENT MEDICATIONS: Tizanidine 4 mg 3 times a day, Lyrica 100 mg twice a day, oxycodone 10/325 up to 4 times a day as needed for pain, oxycodone ER 30 mg 1 p.o. b.i.d., ibuprofen 800 mg p.r.n., Lasix 40 mg daily, albuterol inhaler as needed, Bentyl 10 mg as needed, Phenergan p.r.n. as needed, potassium 10 mEq daily, aspirin 81 mg daily, lisinopril 20 mg daily. PQRS: 1. History of osteoarthritis, neck, back, knees. No rheumatoid arthritis. 2. Height 5 feet 2 inches, weight 200 pounds, BMI 36.7. 3. Vital signs: Blood pressure 127/75, pulse 81, respirations 18, oxygen is 97%. 4. Pain scale is 10/10. 5. Fall risk: Denies dizziness. Does not need help with standing and has not fallen in the last 3 months. 6. No blood thinners. 7. History of hypertension. 8. The patient is on opioid therapy greater than 6 weeks and has opioid signed contract. 9. She is a low risk for our assessment tool. 10. Her functional assessment 51/70. 11. Recreational drug use: She denies. She never has smoked. Alcohol use in the past, but denies alcohol use in years. [address] [address] PAIN MANAGEMENT CONSULTATION Name: VARUN ALAS Room #: REG [facility].#: [id number] Admission: 12/16/17 Attend Phys: Fina Hammonds Discharge: Date of : 59 Report #: [id number] [place] and K-TRACS available on [facility] have been looked over and no apparent behaviors of abuse or aberrant behaviors on that. They are on file in the chart. PHYSICAL EXAMINATION: GENERAL: The patient is well-defined, well-nourished black female, appears her stated age. She is alert and oriented. Speech is fluent. HEENT: Normocephalic, atraumatic. Extraocular nerves intact. Hearing is within normal limits. Mucous membranes are intact. NECK: Without adenopathy. Limited movements. She has well-defined scars in her anterior portion of her neck. MUSCULOSKELETAL: Without significant scoliosis, kyphosis or lordosis. The patient complains of pain and discomfort 10/10 in her major muscle groups in her legs and her lower back and complains of some neck pain in her upper extremities and neck. IMPRESSION: 1. History of cervical fusion. 2. History of lumbar radiculopathy pain and low back pain. 3. Upper respiratory problems including asthma. 4. Hypertension. PLAN AND RECOMMENDATIONS: 1. Today, we discussed her increased pain regarding the weather of her 10/10 pain. The patient does have ibuprofen available to her script from previous. We elected to increase her use of ibuprofen to twice a day during this bad time with weather changes. I told her to be vigilant on how her stomach is feeling and if it becomes a problem or she has increased discomfort in her stomach, she is to decrease or stop use of ibuprofen. She is not to take it on a daily basis, just during this increased pain. 2. The patient was given a script for her oxycodone ER 30 mg one pill twice a day, #60, Percocet 10/325 one p.o. #120, one month script was given, tizanidine 4 mg t.i.d., quantity 270 with 3 refills and Lyrica 100 mg twice a day, #180 with 3 refills were sent via fax to [facility] which is a new medication pill management system that the patient is using for all of her medications not associated with opioids. The patient will return in 1 month. Appointment was made at that time. Thank you for letting me to see this patient and participate in her care. The patient was seen in collaboration with Dr. Valerio Nathan. <ELECTRONICALLY SIGNED> By: Fina Hammonds 12/19/17 0719 [id number] Fina portillo
[2017-12-16 08:30] VITALS: BP 127/75
== END | disposition home or self-care (01) ==
LOC: PAIN 12-12 07:12 → BC 07:02 → PAIN 07:02
DX: M54.16 Radiculopathy, lumbar region (principal); M43.20 Fusion of spine, site unspecified; J45.909 Unspecified asthma, uncomplicated; I10 Essential (primary) hypertension; M54.12 Radiculopathy, cervical region; G89.29 Other chronic pain; M17.0 Bilateral primary osteoarthritis of knee; Z79.899 Other long term (current) drug therapy; Z79.82 Long term (current) use of aspirin; Z79.891 Long term (current) use of opiate analgesic

== ENCOUNTER → 2018-01-11 | Outpatient (CLI) | payer OTHER ==
[~2018-01-11] VITALS: Ht 157.5 cm; Wt 88.5 kg
[~2018-01-11] MED LIST changes: +ADVAIR 250-501 EACH INH; +ASPIRIN325 PO; +ZANTAC 150MG T150 MG PO
--- NOTE | ~2018-01-11 | HPC ---
[facility] [place] [address] PAIN MANAGEMENT CONSULTATION Name: VARUN ALAS Room #: REG [facility] Solange#: [id number] Admission: 01/11/18 Attend Phys: Fina Hammonds Discharge: Date of : 59 Report #: [id number] THIS REPORT FOR: //name// CC: Fina Moore DATE OF SERVICE: 01/11/2018 CHIEF COMPLAINT: The patient seen today for chronic cervical radiculopathy and low back pain, right knee pain. HISTORY OF PRESENT ILLNESS: This is a pleasant 62-year-old black female who is seen in the pain clinic today for a followup for refill of her medications. She tells me today her pain is 10/10, which is her normal number that she rates it, mostly in her neck, her right knee, both her hips and her lower back. She tells me that it is a constant achy, stabby pain; worse with moving and walking, but the medications do help her as well as a hot tub. She tells me that she is sleeping much better without any sleep aids and able to sleep all night long. She tells me this is a big improvement than her recent months. The patient did tell me that she went to the Emergency Room last week because her blood pressure was elevated and she was having some chest pain and a terrible headache. She had tried some medicines that did not help relieve the discomfort and she went to [facility] where they were able to decrease her blood pressure. She is set to have an echo next week to continue that evaluation. She tells me no changes in her medicines except that they increased her aspirin from 81 to 325 mg. The patient denies constipation or daytime sleepiness. ALLERGIES: CODEINE. CURRENT LIST OF MEDICATIONS: Advair daily, Zantac 150 mg twice a day, aspirin 325 mg daily, tizanidine 4 mg 3 times a day, Lyrica 100 mg twice a day, oxycodone 10/325 up to 4 times a day, OxyContin 30 mg twice a day, ibuprofen 800 mg up to 3 times a day, Lasix 40 mg daily, Bentyl 20 mg p.r.n., promethazine 25 mg p.r.n., potassium 10 mEq daily and lisinopril 20 mg daily. PQRS: 1. History of osteoarthritis all over. Denies rheumatoid arthritis. 2. Height 5 feet 2 inches, weight 195, BMI is 35.7. 3. Vital signs: Blood pressure 125/74, pulse is 84, respirations 16, oxygen sat is 96%. 4. Pain score is 10/10. 5. Fall risk: Denies dizziness does not need help walking or standing and has not fallen in the last 3 months. 6. No blood thinners. 7. Does have a history of hypertension. 8. Opioid therapy greater than 6 weeks and an opioid signed contract is on the [address] [address] PAIN MANAGEMENT CONSULTATION Name: VARUN ALAS Room #: REG CLKary Narvaez#: [id number] Admission: 01/11/18 Attend Phys: Fina Hammonds Discharge: Date of : 59 Report #: [id number] chart. 9. Her risk assessment tool is low and her functional assessment is 51/70. 10. Denies recreational drug use. Does not smoke and does not use alcohol. We have checked the patient's [place] and [place] drug monitoring system and find that patient is filling appropriate fills from Dr. Valerio Nathan only and is appropriate on time. The patient tells me she safeguards her medicines. There is not a urine drug screen within the last year on the patient's chart, so we will obtain a buccal specimen today. The patient is agreeable with this. PHYSICAL EXAMINATION GENERAL: The patient is well-defined, well-nourished black female, appears her stated age. She is alert and oriented. Speech is fluent. HEENT: Normocephalic, atraumatic. Extraocular nerves intact. Hearing is within normal limits and mucous membranes are moist. No dentures in today. NECK: Without adenopathy. Limited movements in flexion and extension. Slightly guarded. She does have defined scars in anterior portion of her neck. MUSCULOSKELETAL: Without significant scoliosis, kyphosis or lordosis. Complains of pain of 10/10 in her lower back, especially her right knee and hips. The patient's strength in her lower extremities to be judged at 5/5, does walk with an antalgic gait. IMPRESSION: 1. History of cervical fusion. 2. History of lumbar radiculopathy pain with low back pain. 3. Asthma. 4. Hypertension. 5. Failed cervical spine surgery. 6. Opioid dependency. 7. Complicated medical management using scheduled medications, chronic intractable pain. We reviewed the fact that opiate medications are being used to provide analgesia adequate to support activities of daily living, not attempting to achieve a specific pain score on the 0-10 Visual Analog Scale. The current opiate medications are providing sufficient analgesia to allow the patient to participate in activities of daily living. The patient is not exhibiting any aberrant behavior suggestive of drug diversion. The patient is not having any adverse reactions to medications. The patient is not suffering from daytime somnolence or mental acuity changes. The patient is managing opiate-induced constipation with appropriate pnmj-zpg-xsevely agents and dietary considerations. The patient was counseled on concern for caution with operating a motor vehicle while using opiate medications. A physical exam was performed and the patient's functional status was evaluated. All patients with back pain were advised against the bed rest greater than 4 [facility] [address] [place] [address] PAIN MANAGEMENT CONSULTATION Name: VARUN ALAS [id number] Admission: 01/11/18 Attend Phys: Fina Hammonds Discharge: Date of : 59 Report #: [id number] days and were advised to return to normal activities. Pain score assessment was noted and the treatment plan was reviewed with the patient. All current medications, both prescribed and OTC were reviewed and reconciled on the electronic medical record. Tobacco screening was accomplished and smoking cessation was advised when indicated. BMI was noted and diet/exercise modification was recommended for all patients following outside normal parameters. I reviewed with the patient today their responsibilities to safeguard prescription medications, reviewed their responsibility to utilize medications only as prescribed by the physician. They are to seek and receive pain medications only from 1 physician group ([facility]). They are to use 1 pharmacy and keep the clinic informed if they change pharmacies. Their responsibilities include making followup visits in a timely fashion and to avoid abrupt discontinuation of medication usage. Their responsibilities further include bringing their medications (bottles from the pharmacy with residual pills) to the visit for possible confirmation of pill counts and the patient understands it is their responsibility to submit to random drug screens to ensure both that the medications prescribed are present, and that no other controlled substances are present. All prescriptions provided today were generated electronically. PLAN: 1. The patient returned to the pain clinic today for followup for her opioid medications, tell me that her pain today is 10/10, which is what she has rated the last several months. The patient would like a refill of her current medications. 2. I discussed with the patient that we had not decreased her opioids since May. We have been trying to decrease her medications to fall in line with the CDC guidelines of 90 mEq or below. The patient's current MME dose is 150. I did the math with the patient and determined how we came to that number based on the CDC guidelines. The patient is understanding this, tells me that she has come a long way in decreasing her medicines, still has significant pain, but she understands the guidelines and the need to decrease it. 3. We decided after much discussion to decrease her medicines from OxyContin 30 b.i.d. for 60 mg in a day to OxyContin 30 mg in the morning and 20 mg at night with a total of 50 mg per day. Script was given for 30 pills of each of these strips. Second medication Percocet 10/325, quantity number 120 with no additional refills was also given, that remains a constant dose for her. 4. We did discuss Xtampza as an alternation of her rotation of her opioids that may be possible in March. The patient will check with her insurance company and see if it is covered, it may require prior authorization, but that is an abuse-deterrent medication also and with her history of opioid use, we should be able to get it approved through a prior authorization. The patient will check with her insurance as a possible opioid rotation medicine. 5. The patient told me that she will be seeing a motor installer in March and [facility] [address] [place] [address] PAIN MANAGEMENT CONSULTATION Name: VARUN ALAS Room #: REG KRYSTLE PorterDung#: [id number] Admission: 01/11/18 Attend Phys: Fina Hammonds Discharge: Date of : 59 Report #: [id number] we will await those findings too. 6. Oral buccal was checked today for her drug screen since one has not been on the chart in the last year. 7. The patient is agreeable with this plan of care, will follow up with me in 1 month's time. The patient seen in collaboration with Dr. Valerio Nathan. <ELECTRONICALLY SIGNED> By: Fina Hammonds 01/12/18 [id number] Fina Hammonds /selena
[2018-01-11 10:13] VITALS: BP 125/74
== END ==
LOC: PAIN 07:13
DX: M43.22 Fusion of spine, cervical region (principal); M54.16 Radiculopathy, lumbar region; J45.909 Unspecified asthma, uncomplicated; I10 Essential (primary) hypertension; F11.20 Opioid dependence, uncomplicated; G89.4 Chronic pain syndrome; Z79.899 Other long term (current) drug therapy; Z98.1 Arthrodesis status

== ENCOUNTER → 2018-02-09 | Outpatient (CLI) | payer OTHER ==
[~2018-02-09] VITALS: Ht 157.5 cm; Wt 90.3 kg
[~2018-02-09] MED LIST changes: +VOLTAREN GEL 1100 G2 TOP
--- NOTE | ~2018-02-09 | HPC ---
[facility] [place] [address] PAIN MANAGEMENT CONSULTATION Name: VARUN ALAS Room #: REG [facility]..#: [id number] Admission: 02/09/18 Attend Phys: Fina Hammonds Discharge: Date of : 59 Report #: [id number] THIS REPORT FOR: //name// CC: Fina Moore DATE OF SERVICE: 02/09/2018 CHIEF COMPLAINT: Chronic cervical radiculopathy, low back pain and right knee pain. HISTORY OF PRESENT ILLNESS: This is a very pleasant 62-year-old female who returns to the pain clinic today for refill of her medications. She tells me that her pain score is 9/10 today. It is very tearful, stating that she is having a hard time moving and bending over since the decrease of her medications. She tells me that she understands that we needed to decrease her medications, but is just hurting her back, neck, right knee and hips are all pain generators for her. She tells me she has constant, stabbing, aching, intermittent pain, worse with moving or walking, but her medications or the hot tub does help her. ALLERGIES: CODEINE. CURRENT LIST OF MEDICATIONS: Tizanidine 4 mg 3 times a day, oxycodone 10/325 every 6 hours, OxyContin 30 mg in the morning and 20 mg at bedtime, Advair 250/50 twice a day, Zantac 20 mg twice a day, aspirin 325 daily, Lyrica 100 mg twice a day, Lasix 40 mg daily, ProAir as needed, Bentyl as needed, Phenergan as needed, potassium 10 mEq as needed and Zestril 20 mg daily. PQRS: 1. She has a history of osteoarthritis all over in her back, legs, hips, neck. She denies rheumatoid arthritis. 2. Height is 5 feet 2 inches, weight is 199, BMI is 36.4. 3. Vital signs: Blood pressure 143/86, pulse is 81, respirations 16, oxygen sat is 98. 4. Pain score is 9/10. 5. Fall risk. She denies dizziness. Does not need help walking or standing and has not fallen in the last 3 months. 6. The patient is not on any blood thinners. She does have a history of hypertension and takes medications. 7. Opioid therapy greater than 6 weeks, therefore an opioid signed contract is on the chart. 8. Her risk assessment tool is low and her functional assessment 51/70. 9. The patient denies recreational drug use. She is not a smoker and does not drink alcohol. [address] [address] PAIN MANAGEMENT CONSULTATION Name: ALASVARUNTALYA HIDALGO Room #: REG KRYSTLE Narvaez#: [id number] Admission: 02/09/18 Attend Phys: Fina Hammonds Discharge: Date of : 59 Report #: [id number] We did check the prescription monitoring system in [place] in [place]. The patient has been feeling appropriately on a monthly basis from Dr. Jim Nathan with no aberrant behavior noted. The patient tells me that she does safeguard her medications. We did check a buccal drug screen last month at her visit, but we have not received the report back at this time. PHYSICAL EXAMINATION: GENERAL: This is a well-developed, well-nourished black female who appears her stated age. She is alert and oriented and tearful today. Her speech is fluent. HEENT: Normocephalic, atraumatic. Extraocular eye muscles intact. Hearing is within normal limits. Mucous membranes are moist. NECK: Without adenopathy or JVD. She does have limited movement in flexion and extension and tells me that it is tender in her posterior neck today. MUSCULOSKELETAL: Without significant scoliosis, kyphosis or lordosis; complains of 9/10 pain in her lower back and her legs, especially her hips today. Strength in her lower extremity judged to be 5/5 and does walk with an antalgic gait. IMPRESSION: 1. History of cervical fusion. 2. History of lumbar radiculopathy with low back pain. 3. Asthma. 4. Hypertension. 5. Failed cervical spine surgery. 6. Opioid dependency. 7. Complex medical management using scheduled medications for chronic intractable pain. We reviewed the fact that opiate medications are being used to provide analgesia adequate to support activities of daily living, not attempting to achieve a specific pain score on the 0-10 Visual Analog Scale. The current opiate medications are providing sufficient analgesia to allow the patient to participate in activities of daily living. The patient is not exhibiting any aberrant behavior suggestive of drug diversion. The patient is not having any adverse reactions to medications. The patient is not suffering from daytime somnolence or mental acuity changes. The patient is managing opiate-induced constipation with appropriate hnnh-nbd-qvfpssw agents and dietary considerations. The patient was counseled on concern for caution with operating a motor vehicle while using opiate medications. A physical exam was performed and the patient's functional status was evaluated. All patients with back pain were advised against the bed rest greater than 4 days and were advised to return to normal activities. Pain score assessment was noted and the treatment plan was reviewed with the patient. All current medications, both prescribed and OTC were reviewed and reconciled on the electronic medical record. Tobacco screening was accomplished and smoking [facility] [address] [place] [address] PAIN MANAGEMENT CONSULTATION Name: VARUN ALAS Room #: REG [facility] M..#: [id number] Admission: 02/09/18 Attend Phys: Fina Hammonds Discharge: Date of : 59 Report #: [id number] cessation was advised when indicated. BMI was noted and diet/exercise modification was recommended for all patients following outside normal parameters. I reviewed with the patient today their responsibilities to safeguard prescription medications, reviewed their responsibility to utilize medications only as prescribed by the physician. They are to seek and receive pain medications only from 1 physician group ( [facility]). They are to use 1 pharmacy and keep the clinic informed if they change pharmacies. Their responsibilities include making followup visits in a timely fashion and to avoid abrupt discontinuation of medication usage. Their responsibilities further include bringing their medications (bottles from the pharmacy with residual pills) to the visit for possible confirmation of pill counts and the patient understands it is their responsibility to submit to random drug screens to ensure both that the medications prescribed are present, and that no other controlled substances are present. All prescriptions provided today were generated electronically. PLAN: 1. The patient return to the pain clinic today for followup for her opioid medications. She tells me that her pain score is 9/10, which continues to be a high rating for her on multiple visits. She is here for refill of her current medications. We did decrease her medications last time. She is very tearful today understanding that why she needed to decrease her medications according to the CDC guidelines, but tells me that she has a lot of difficulty moving with her increase in pain, but does find time to go out and tells me about a recent shopping trip that she has gone on, does not request an increase of her medications today. 2. Script was given for OxyContin 30 mg once a day in the morning, #30. 3. Script OxyContin 20 mg 1 tablet at bedtime, quantity 30. 4. Script oxycodone 10/325 four times a day, #120. 5. We discussed taking ibuprofen for her increase in her pain. The patient tells me that they told her since she has been having recent stomach issues she is not to take her ibuprofen for a while. We did discuss giving her some Voltaren gel that she could put on her neck and back and hips and knees if her pain continues to be increased. The patient is agreeable with trying this medication for her osteoarthritis. The patient may use this medicine up to 4 times a day as needed. Script given for 3 tubes with 2 additional refills. 6. Appointment made for 1 month followup to see Dr. Nathan for her medication refills. 7. The patient is seen in the clinic today with collaboration with Dr. Valerio Nathan. <ELECTRONICALLY SIGNED> By: Fina Hammonds 02/13/18 [id number] Fina Hammonds /selena
[2018-02-09 10:29] VITALS: BP 143/86
== END ==
LOC: PAIN 02-08 12:22
DX: M54.12 Radiculopathy, cervical region (principal); M54.5 Low back pain; M25.561 Pain in right knee; M54.16 Radiculopathy, lumbar region; J45.909 Unspecified asthma, uncomplicated; I10 Essential (primary) hypertension; M06.9 Rheumatoid arthritis, unspecified; F11.20 Opioid dependence, uncomplicated

== ENCOUNTER → 2018-03-10 | Outpatient (CLI) | payer OTHER ==
[~2018-03-10] VITALS: Ht 157.5 cm; Wt 89.5 kg
--- NOTE | ~2018-03-10 | HPC ---
[facility] [address] [address] PAIN MANAGEMENT CONSULTATION Name: VARUN ALAS Room #: REG KRYSTLE CobbDungLisandraDung#: [id number] Admission: 03/10/18 Attend Phys: Scooby Nathan MD Discharge: Date of : 59 Report #: [id number] THIS REPORT FOR: //name// CC: Bk Nathan DATE OF SERVICE: 03/10/2018 PRIMARY CARE PHYSICIAN: Dr. Bk Moore CHIEF COMPLAINT: "I am really hurt today." HISTORY: The patient is a 63-year-old female who has been followed in the pain clinic for a number of years. She continues to have pain, which she finds quite problematic. She has undergone cervical fusion and continues to have pain and discomfort, which is problematic as a result of that. She has had some problems with her knees. Today, she complains of pain, which is somewhat global in nature. It involves her arms, legs, knees and has been worse since the weather has changed. She has gotten cold outside. Temperature has been in the 20s. Complains of pain in the neck, low back, right knee, bilateral hips and rates it as a 10/10. She is moving slowly because of the pain. Notes that with the barometric pressure changes she notes the worsening of her pain and discomfort. She feels that overall her medications are helpful. Pain is still very complex. She has returned today for renewal of her medications. ALLERGIES: CODEINE. CURRENT MEDICATIONS: Lisinopril, aspirin, potassium, promethazine, dicyclomine, albuterol, oxycodone or OxyContin. PAIN CLINIC ASSESSMENT/PQRS: 1. History of osteoarthritis. The patient has some arthritic changes in her neck with instrumentation and fusion of the neck area. Continues to have some pain and discomfort in her shoulders. Complaints of pain and discomfort in the low back area with some pain radiates down into her leg. 2. Height 5 feet 2 inches, weight 197 pounds, BMI is 36.1. 3. Vital signs: Blood pressure 110/76, pulse 85, respiratory rate 18, room air saturation 96%. 4. Pain intensity 12/14. 5. Fall risk. The patient has not fallen in the last 3 months. 6. Blood thinner. The patient is not on a blood thinning medication. 7. Hypertension. The patient has been treated for hypertension. 8. Opioids greater than 6 weeks. The patient received her medication from one source, the pain clinic. 9. Risk assessment tool 3/moderate for opioid use. 10. Functional assessment tool 51/70. [address] [address] PAIN MANAGEMENT CONSULTATION Name: VARUN ALAS Room #: REG CL [facility].#: [id number] Admission: 03/10/18 Attend Phys: Scooby Nathan MD Discharge: Date of : 59 Report #: [id number] 11. Recreational drug use. The patient denies use of recreational drugs. 12. Tobacco: The patient denies use of tobacco. 13. Alcohol: The patient denies use of alcoholic beverages. PHYSICAL EXAMINATION: GENERAL: The patient is a well-developed, well-nourished black female, appears her stated age. She is alert and oriented x 3. Affect is appropriate. Speech is fluent. HEENT: Normocephalic, atraumatic. Extraocular eye muscles intact. Sclerae nonicteric. Mucous membranes are moist. NECK: Limited secondary to history of cervical fusion. The patient complains of pain in her neck as well as her shoulders. HEART: Regular rate. S1, S2. LUNGS: Clear to auscultation without rhonchi, history of asthma. MUSCULOSKELETAL: Without significant scoliosis, kyphosis or lordosis. Limited upper extremity movement in her neck and arms. Complains of pain and discomfort in lower portion of her back with pain that radiates down into her lumbar areas. Muscle strength is judged to be 5-/5 for the major muscle groups. The patient walks in an extremely slow fashion with an antalgic gait. Moves from the floor to the bed in the examination area. She was lying on the bed when we come in to chart with her. IMPRESSION: 1. History of cervical fusion with cervical radicular pain, worse on the right involving the arm and shoulder. 2. History of lumbar radicular pain involving the low back area. 3. Upper respiratory problems with asthma, stable at this juncture. 4. Hypertension. RECOMMENDATIONS: We discussed treatment options with the patient. We discussed the risks and benefits of opioid use. The patient has been on higher levels of opioid medication. She is down to more of the level of the CDC has recommended. She has noted that although she is continuing to get benefit from the medication, feels that they are not near as effective as they had been in the past. Again, we discussed the course of opioid use. We explained to the patient again that constant use of opioid medications can cause dependence as well as become less effective over a period of time secondary to constant use and tolerance. The patient would like to have her medications renewed. A script for the medications have been written. She will follow up in the future as needed. A script for Lyrica 100 mg 1 p.o. b.i.d., oxycodone or OxyContin 30 mg 1 p.o. daily, Voltaren gel, tizanidine 4 mg t.i.d. and Lyrica have been rewritten. [facility] [address] [place] [address] PAIN MANAGEMENT CONSULTATION Name: VARUN ALAS Room #: REG [facility]..#: [id number] Admission: 03/10/18 Attend Phys: Scooby Nathan MD Discharge: Date of : 59 Report #: [id number] We would like to thank you for letting us participate in her care. We hope she continues to improve. By: [id number] Scooby Nathan MD /ADI
[2018-03-10 12:50] VITALS: BP 110/76
--- NOTE | 2018-03-10 12:53 | NUR ---
Pain Clinic Assessment: 1. History of Osteoarthritis: ALL OVER History of Rheumatoid Arthritis: NO 2. Height: 5 ft. 2 in. 157.5 cm. Weight: 197.4 lb. oz. 89.540 kg. Patient's BMI: 36.1 3. Vital Signs: BP: 110/76 Pulse: 85 Resp: 18 Temp: 02 Sat: 96 ECG Mon: 4. Pain Intensity: 10 5. Fall Risk: Dizziness: N Needs help standing or walking: N Fallen in the last 3 months: N Fall risk comments: 6. Patient on Blood Thinner: None 7. History of Hypertension: Y 8. Opioid Therapy greater than 6 weeks: Y Opiate Contract Signed: 10/24/15 9. Risk Assessment Tool Provided: low risk-1 10. Functional Assessment Tool: 11. Recreational Drug Use: Never Drug Type: Tobacco Use: Never Smoker Tobacco Type: Amount or Packs/day: How Many Years: Alcohol Use: Past use Frequency: Quant:
== END ==
LOC: PAIN 07:23
DX: M54.12 Radiculopathy, cervical region (principal); M43.22 Fusion of spine, cervical region; M54.16 Radiculopathy, lumbar region; M25.511 Pain in right shoulder; I10 Essential (primary) hypertension; J45.909 Unspecified asthma, uncomplicated

== ENCOUNTER → 2018-04-05 | Outpatient (CLI) | payer OTHER ==
[~2018-04-05] VITALS: Ht 157.5 cm; Wt 90.7 kg
[2018-04-05 12:38] VITALS: BP 109/65
--- NOTE | 2018-04-05 12:41 | NUR ---
Pain Clinic Assessment: 1. History of Osteoarthritis: ALL OVER History of Rheumatoid Arthritis: NO 2. Height: 5 ft. 2 in. 157.5 cm. Weight: 200.0 lb. oz. 90.720 kg. Patient's BMI: 36.6 3. Vital Signs: BP: 109/65 Pulse: 80 Resp: 16 Temp: 02 Sat: 97 ECG Mon: 4. Pain Intensity: 10 5. Fall Risk: Dizziness: N Needs help standing or walking: N Fallen in the last 3 months: N Fall risk comments: 6. Patient on Blood Thinner: None 7. History of Hypertension: Y 8. Opioid Therapy greater than 6 weeks: Y Opiate Contract Signed: 10/24/15 9. Risk Assessment Tool Provided: low risk-1 10. Functional Assessment Tool: 11. Recreational Drug Use: Never Drug Type: Tobacco Use: Never Smoker Tobacco Type: Amount or Packs/day: How Many Years: Alcohol Use: No Frequency: Quant:
--- NOTE | 2018-04-06 10:05 | HPC ---
[facility] [place] [address] PAIN MANAGEMENT CONSULTATION Name: VARUN ALAS Room #: REG [facility].#: [id number] Admission: 04/05/18 Attend Phys: Fina Hammonds Discharge: Date of : 59 Report #: [id number] THIS REPORT FOR: //name// CC: Fina Moore DATE OF SERVICE: 04/05/2018 CHIEF COMPLAINT: Chronic cervical radiculopathy, low back pain and right knee pain. HISTORY OF PRESENT ILLNESS: The patient returns to the pain clinic today who is a very pleasant 63-year-old female for refill of her medications. She is in a boot today. 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 She tells me it is kind of altering her walking and therefore her pain has increased slightly due to this. She is about custodial done wearing this boot before she goes back for her followup visit. In addition, she tells me she has a new cyst on her left foot that is also causing her some pain, so she has been having lots of difficulty walking. She rates her pain today as 10/10 in her neck, low back, bilateral feet and legs, worse with of course walking and moving, but the medication and hot tubs are very helpful. ALLERGIES: CODEINE. MEDICATIONS: Zanaflex 4 mg 3 times a day, Lyrica 100 mg b.i.d., oxycodone 10/325 four times a day, OxyContin 30 mg in the morning and OxyContin 20 mg at night, Voltaren gel as needed, Advair inhalers twice a day, Zantac 150 mg b.i.d., aspirin 325 mg daily, ibuprofen 800 mg every 8 hours, Lasix 40 mg daily, albuterol inhaler as needed, Bentyl 20 mg as needed, Phenergan 25 mg as needed, potassium 10 mEq daily and lisinopril 20 mg daily. PQRS: 1. She has a history of osteoarthritis; arthritic changes in her neck, also in her bilateral shoulders and her knees and legs. Denies rheumatoid arthritis. 2. Height is 5 feet 2 inches, weight is 200, BMI is 36. 3. Vital signs: Blood pressure 109/65, pulse is 80, respirations 16, oxygen sat is 97%. 4. Pain score is 10/10. 5. Fall risk: Denies dizziness, does not need help walking or standing, has not fallen in the last 3 months. 6. Blood thinners, she denies. She does take antihypertensive medicines. 7. Opioid therapy is greater than 6 weeks, therefore an opioid signed contract is on the chart. 8. Functional risk assessment is low. Her functional assessment is 51/70. 9. Recreational drug use, she denies. She is not a [place] [address] PAIN MANAGEMENT CONSULTATION Name: VARUN ALAS Room #: REG [facility] Narvaez#: [id number] Admission: 04/05/18 Attend Phys: Fina Hammonds Discharge: Date of : 59 Report #: [id number] alcohol. We did check the prescription monitoring system. The patient is filling appropriately with her medications from physicians within this clinic. There is a recent drug screen on the chart. She tells me she safeguards her medications as well. PHYSICAL EXAMINATION: GENERAL: This is a well-developed, well-nourished black female who appears her stated age. She is alert and orientated. Her affect is appropriate. Her speech is fluent. HEENT: Normocephalic, atraumatic. Extraocular eye muscles are intact. Sclerae is not icteric. Mucous membranes are moist. NECK: Limited secondary to history of cervical fusion. MUSCULOSKELETAL: Without significant kyphosis, scoliosis or lordosis. Complains of pain and discomfort in her lower right leg in which she is wearing a boot today due to her recent Achilles tendon tear. Complains of pain in her right foot also. Muscle strength is judged to be 5/5 in major muscle groups. The patient walks with an antalgic gait. She is able to move from sitting to standing without difficulty, though rather slowly.Bilat knee pain is also present today. ASSESSMENT: 1. History of cervical fusion with cervical radiculopathy, worse on the right involving the arm and shoulders. 2. History of lumbar radicular pain involving the lower back. 3. Hypertension. 4. Complex medical management under terms of written opioid agreement. 5. Asthma. We reviewed the fact that opiate medications are being used to provide analgesia adequate to support activities of daily living, not attempting to achieve a specific pain score on the 0-10 Visual Analog Scale. The current opiate medications are providing sufficient analgesia to allow the patient to participate in activities of daily living. The patient is not exhibiting any aberrant behavior suggestive of drug diversion. The patient is not having any adverse reactions to medications. The patient is not suffering from daytime somnolence or mental acuity changes. The patient is managing opiate-induced constipation with appropriate ihir-frk-jillovt agents and dietary considerations. The patient was counseled on concern for caution with operating a motor vehicle while using opiate medications. A physical exam was performed and the patient's functional status was evaluated. All patients with back pain were advised against the bed rest greater than 4 days and were advised to return to normal activities. Pain score assessment was noted and the treatment plan was reviewed with the patient. All current medications, both prescribed and OTC were reviewed and reconciled on the electronic medical record. Tobacco screening was accomplished and smoking [facility] [address] [place] [address] PAIN MANAGEMENT CONSULTATION Name: VARUN ALAS Room #: REG CLI [facility].#: [id number] Admission: 04/05/18 Attend Phys: Fina Hammonds Discharge: Date of : 59 Report #: [id number] cessation was advised when indicated. BMI was noted and diet/exercise modification was recommended for all patients following outside normal parameters. I reviewed with the patient today their responsibilities to safeguard prescription medications, reviewed their responsibility to utilize medications only as prescribed by the physician. They are to seek and receive pain medications only from 1 physician group ( [facility]). They are to use 1 pharmacy and keep the clinic informed if they change pharmacies. Their responsibilities include making followup visits in a timely fashion and to avoid abrupt discontinuation of medication usage. Their responsibilities further include bringing their medications (bottles from the pharmacy with residual pills) to the visit for possible confirmation of pill counts and the patient understands it is their responsibility to submit to random drug screens to ensure both that the medications prescribed are present, and that no other controlled substances are present. All prescriptions provided today were generated electronically. PLAN: 1. We discussed treatment options with the patient today. The patient tells me that due to the weather and a recent Achilles tendon tear and wearing a boot that her back has been hurting worse due to her altered gait. The patient tells me she is thinking about using CBD oil. We had a quite lengthy discussion regarding medical marijuana use and CBD oil in the state of [place]. CBD oil is approved. Medical marijuana has not yet been made available to the public. It will not be the practice, as of right now, the decision for the doctors to write any medical marijuana. The patient does not want to be using this. She is just interested in the CBD oil and will try some in the future on her lower back. 2. The patient requested a refill of her diclofenac gel today. We had received a letter from the pharmacy stating that they only gave her a temporary supply. We will need to do a prior authorization. This medicine is very helpful with her arthritic changes in her lower extremities, minerva her knee pain The patient would like us to proceed with the prior authorization. She does take occasionally ibuprofen, but it does upset her stomach at times, so she uses it very sparingly. She would like us to proceed with that prior authorization. 3. Scripts given today for her: a. oxycodone 10/325 q. 6 hours, #120. b. OxyContin 30 mg every day, #30. c. OxyContin 20 mg at bedtime, #30. 4. The patient will be seen in 1 month time for refill of her medications. The patient is agreeable and made appointment for that date today. [address] [address] PAIN MANAGEMENT CONSULTATION Name: ALAS,VARUNTALYA HIDALGO Room #: REG CL [facility]#: [id number] Admission: 04/05/18 Attend Phys: Fina Hammonds Discharge: Date of : 59 Report #: [id number] The patient was seen in collaboration today with Dr. Jim Nathan. <ELECTRONICALLY SIGNED> By: Fina Hammonds 04/06/18 [id number] Fina Hammonds /selena
== END ==
LOC: PAIN 06:59
DX: J45.909 Unspecified asthma, uncomplicated (principal); I10 Essential (primary) hypertension; M43.22 Fusion of spine, cervical region; M54.12 Radiculopathy, cervical region; M54.5 Low back pain; Z79.891 Long term (current) use of opiate analgesic

== ENCOUNTER → 2018-05-03 | Outpatient (CLI) | payer OTHER ==
[~2018-05-03] VITALS: Ht 157.5 cm; Wt 93.9 kg
[2018-05-03 12:57] VITALS: BP 136/86
--- NOTE | 2018-05-03 12:59 | NUR ---
Pain Clinic Assessment: 1. History of Osteoarthritis: ALL OVER History of Rheumatoid Arthritis: NO 2. Height: 5 ft. 2 in. 157.5 cm. Weight: 207.0 lb. oz. 93.895 kg. Patient's BMI: 37.9 3. Vital Signs: BP: 136/86 Pulse: 92 Resp: 16 Temp: 02 Sat: 97 ECG Mon: 4. Pain Intensity: 8-9 5. Fall Risk: Dizziness: N Needs help standing or walking: N Fallen in the last 3 months: N Fall risk comments: 6. Patient on Blood Thinner: None 7. History of Hypertension: Y 8. Opioid Therapy greater than 6 weeks: Y Opiate Contract Signed: 10/24/15 9. Risk Assessment Tool Provided: low risk-1 10. Functional Assessment Tool: 11. Recreational Drug Use: Never Drug Type: Tobacco Use: Never Smoker Tobacco Type: Amount or Packs/day: How Many Years: Alcohol Use: No Frequency: Quant:
--- NOTE | 2018-05-04 11:48 | HPC ---
[facility] [address] [address] PAIN MANAGEMENT CONSULTATION Name: VARUN ALAS [id number] Admission: 05/03/18 ������������������ Attend Phys: Fina Hammonds Discharge: ������������������ Date of : 59 Report #: [id number] THIS REPORT FOR: //name// CC: Fina Moore DATE OF SERVICE: 05/03/2018 CHIEF COMPLAINT: Chronic cervical radiculopathy, low back pain and right foot pain. HISTORY OF PRESENT ILLNESS: The patient returns to the pain clinic today for refill of her current medication. She tells me that her back and knees are doing fairly well today as it is her right foot that has been bothering her. She has been in a boot for 6 weeks due to a possible Achilles tendon tear. She has done some physical therapy, but she continues to have shooting pain, sharp, tingly that goes from her ankle upward towards her knee. She remains in the boot for four more weeks and she will have an MRI in the middle of May to see if she is going to need surgery. The patient tells me that she will send the report to us after her MRI. She is using a cane today for balance since walking with the boot makes her gait difficult. She tells me that this pain now is an 8 to 9 mostly in her foot. The medications are helpful. She denies any constipation with them and would like refills today. ALLERGIES: CODEINE. CURRENT MEDICATIONS: Tizanidine 4 mg 3 times a day, oxycodone 10/325 up to 4 times a day, OxyContin 30 mg in the morning, OxyContin 20 mg at night, Lyrica 100 mg b.i.d., Voltaren gel as needed up to 4 times a day, Advair 2 puffs daily, Zantac 150 mg b.i.d., aspirin 325 mg daily, ibuprofen as needed, Lasix 40 mg daily, ProAir as needed, Bentyl as needed, promethazine as needed, potassium 10 mEq daily and lisinopril 20 mg daily. PQRS: 1. The patient has a history of osteoarthritic changes in her neck, shoulders, knees and is being treated for that. She denies any rheumatoid arthritis. 2. Height is 5 feet 2 inches, weight is 207 and BMI is 37. 3. Vital signs: 136/86, pulse is 92, respirations 16 and oxygen sat 97%. 4. Pain score is 8-9/10. 5. Fall risk. Denies dizziness. Uses a cane for walking, has not fallen in the last 3 months. 6. The patient is not on any blood thinners, but does take medicine for hypertension. 6. Opioid therapy is greater than 6 weeks; therefore, an opioid signed contract is on the chart. 7. Her risk assessment tool is low. Her functional assessment is 51/70. [address] [address] PAIN MANAGEMENT CONSULTATION Name: ALASVARUNTALYA HIDALGO Room #: REG [facility] Narvaez#: [id number] Admission: 05/03/18 ������������������ Attend Phys: Fina Hammonds Discharge: ������������������ Date of : 59 Report #: [id number] 8. Recreational drug use, she denies. She is not a smoker and does not drink alcohol. We did check the prescription monitoring system. The patient is filling appropriately from Dr. Jim Nathan and she tells me that she does safeguard her medications. PHYSICAL EXAMINATION: GENERAL: This is a well-developed, well-nourished black female who appears her stated age. She is alert and orientated. Her speech is fluent. HEENT: Normocephalic and atraumatic. Extraocular eye muscles are intact. Sclerae is not icteric. Mucous membranes are moist. The patient does have a raspy voice today. NECK: Limited range of motion secondary to history of cervical fusion. MUSCULOSKELETAL: Without significant kyphosis, scoliosis or lordosis. Complains of right foot pain today, sharp, tingling, stabbing, numbness that radiates from her ankle to her knee. The patient walks with an antalgic gait using a cane today and is in a boot. She is able to move from sitting to standing without difficulty, though slowly and using the arms due to the boot. ASSESSMENT: 1. History of cervical fusion with cervical radiculopathy. 2. History of lumbar radicular pain involving her lower back. 3. Hypertension. 4. Complex medical management under terms of written opioid agreement. 5. Asthma. 6. Right foot pain. We reviewed the fact that opiate medications are being used to provide analgesia adequate to support activities of daily living, not attempting to achieve a specific pain score on the 0-10 Visual Analog Scale. The current opiate medications are providing sufficient analgesia to allow the patient to participate in activities of daily living. The patient is not exhibiting any aberrant behavior suggestive of drug diversion. The patient is not having any adverse reactions to medications. The patient is not suffering from daytime somnolence or mental acuity changes. The patient is managing opiate-induced constipation with appropriate zxde-shw-qtjobby agents and dietary considerations. The patient was counseled on concern for caution with operating a motor vehicle while using opiate medications. A physical exam was performed and the patient's functional status was evaluated. All patients with back pain were advised against the bed rest greater than 4 days and were advised to return to normal activities. Pain score assessment was noted and the treatment plan was reviewed with the patient. All current medications, both prescribed and OTC were reviewed and reconciled on the electronic medical record. Tobacco screening was accomplished and smoking cessation was advised when indicated. BMI was noted and diet/exercise modification was recommended for all patients following outside normal [facility] [address] [place] [address] PAIN MANAGEMENT CONSULTATION Name: VARUN ALAS Room #: REG [facility].#: [id number] Admission: 05/03/18 ������������������ Attend Phys: Fina Hammonds Discharge: ������������������ Date of : 59 Report #: [id number] parameters. I reviewed with the patient today their responsibilities to safeguard prescription medications, reviewed their responsibility to utilize medications only as prescribed by the physician. They are to seek and receive pain medications only from 1 physician group ( [facility]). They are to use 1 pharmacy and keep the clinic informed if they change pharmacies. Their responsibilities include making followup visits in a timely fashion and to avoid abrupt discontinuation of medication usage. Their responsibilities further include bringing their medications (bottles from the pharmacy with residual pills) to the visit for possible confirmation of pill counts and the patient understands it is their responsibility to submit to random drug screens to ensure both that the medications prescribed are present, and that no other controlled substances are present. All prescriptions provided today were generated electronically. PLAN: 1. We discussed treatment options with the patient today. The patient continues to complain of right foot pain, worse with wearing her boot, telling me that it is radiating from her ankle to her knee, sharp, shooting, numbness, pain. She tells me she has been using slightly more diclofenac gel on that area. She is scheduled to have an MRI within the month to see if it is healing. Because of this numb, tingly, burning feeling the patient has, I have suggested that she increases her Lyrica from 100 b.i.d. to 100 in the morning, 50 midday and 100 at night to see if this helps with this burning, tingly pain that she has. The patient will trial this for a month. We will see if it helps prior to her MRI. The patient is agreeable to a trial of this because her pain has been increased so much. 2. We will refill her medications today of her oxycodone and OxyContin. Tizanidine will also be refilled and faxed to [facility]. The patient is not needing diclofenac refill today. 3. Dr. Nathan did come and discuss this with the patient. The treatment plan and care was given in collaboration with Dr. Nathan. ��������������������������������������������� <ELECTRONICALLY SIGNED> ���������������������������������������� By: Fina Hammonds ��������������������������������������������� 05/04/18 [id number] Fina Hammonds /nt
== END ==
LOC: PAIN 04-28 12:19
DX: M54.12 Radiculopathy, cervical region (principal); M54.16 Radiculopathy, lumbar region; M43.22 Fusion of spine, cervical region; M79.671 Pain in right foot; I10 Essential (primary) hypertension; J45.909 Unspecified asthma, uncomplicated; Z79.891 Long term (current) use of opiate analgesic; Z79.899 Other long term (current) drug therapy

== ENCOUNTER → 2018-05-31 | Outpatient (CLI) | payer OTHER ==
[~2018-05-31] VITALS: Ht 157.5 cm; Wt 89.8 kg
[2018-05-31 10:40] VITALS: BP 94/58
--- NOTE | 2018-05-31 10:44 | NUR ---
Pain Clinic Assessment: 1. History of Osteoarthritis: ALL OVER History of Rheumatoid Arthritis: NO 2. Height: 5 ft. 2 in. 157.5 cm. Weight: 198.0 lb. oz. 89.812 kg. Patient's BMI: 36.2 3. Vital Signs: BP: 94/58 Pulse: 71 Resp: 18 Temp: 02 Sat: 95 ECG Mon: 4. Pain Intensity: 9 5. Fall Risk: Dizziness: N Needs help standing or walking: N Fallen in the last 3 months: N Fall risk comments: 6. Patient on Blood Thinner: None 7. History of Hypertension: Y 8. Opioid Therapy greater than 6 weeks: Y Opiate Contract Signed: 10/24/15 9. Risk Assessment Tool Provided: low risk-1 10. Functional Assessment Tool: 11. Recreational Drug Use: Never Drug Type: Tobacco Use: Never Smoker Tobacco Type: Amount or Packs/day: How Many Years: Alcohol Use: No Frequency: Quant:
--- NOTE | 2018-06-01 07:27 | HPC ---
[facility] [place] [address] [place] [address] PAIN MANAGEMENT CONSULTATION Name: VARUN ALAS Room #: REG [facility].#: [id number] Admission: 05/31/18 ������������������ Attend Phys: Fina Hammonds Discharge: ������������������ Date of : 59 Report #: [id number] THIS REPORT FOR: //name// CC: Fina Moore DATE OF SERVICE: 05/31/2018 CHIEF COMPLAINT: Chronic cervical radiculopathy, low back pain and right foot pain. HISTORY OF PRESENT ILLNESS: The patient returns to the pain clinic today for refill of her medications. She tells me about her ongoing Achilles tendon issues. She is not wearing her boot today, she tells me because she has an ingrown toenail that is worse when she is wearing the boot. She tells me she had an MRI on her foot and she is in the process of getting a second opinion related to her tendon issue. The patient tells me she has scar tissue that is causing the problem and it is not a tear. They want her to stay in the boot as well as do physical therapy. She tells me that she thinks physical therapy makes her pain worse. I encouraged her to go to physical therapy to see if it does help it in the long run. The patient is also seeking a second opinion from [facility] regarding her foot. The patient tells me that she also was having this ingrown toenail that she is going to have removed in about 3 weeks. The boot has been rubbing on her toe, making this pain worse. She feels like it is infected. The patient is not currently taking antibiotics. She says that she is in flip flops today since both feet are bothersome. The patient tells me that her overall pain is worsening. She tells me that she is even thinking about getting an epidural injection in her neck from Dr. Nathan. She tells me her pain score is 9/10 today. Again, the worst area is her neck and her feet, but she also complains of low back pain, knee pain and hip pain. The patient thinks that the increase that we gave her in Lyrica 50 mg midday has been helpful, but still does have some nerve pain associated with her neck and lower back. ALLERGIES: CODEINE. CURRENT LIST OF MEDICATIONS: Tizanidine 4 mg 3 times a day, oxycodone 10/325 up to 4 times a day, OxyContin 30 mg once a day, OxyContin 20 mg once a day, Lyrica 100 mg b.i.d., Lyrica 50 mg at midday, Voltaren gel as needed, Advair inhaler daily, Zantac 150 mg b.i.d., aspirin 325 mg daily, Lasix 40 mg daily, albuterol inhaler as needed, Bentyl as needed, promethazine as needed, potassium 10 mEq daily, lisinopril 20 mg daily. PQRS: 1. The patient does have arthritic changes in her neck, shoulders, knees and [facility] [address] [place] [address] PAIN MANAGEMENT CONSULTATION Name: BISHOPVARUN HIDALGO Room #: REG CLI Solange#: [id number] Admission: 05/31/18 ������������������ Attend Phys: Fina Hammonds Discharge: ������������������ Date of : 59 Report #: [id number] lower back. She is not being treated for rheumatoid arthritis. 2. Height is 5 feet 2 inches, weight is 198. BMI is 36. 3. Vital signs: Blood pressure 94/58, pulse of 71, respirations 18, oxygen sat is 95. 4. Pain score is 9/10. 5. The patient does not have any dizziness. She does not need help walking or standing and she has not fallen in the last 3 months. 6. The patient is not on any blood thinners, but does take medicine for hypertension. 7. Opioid therapy is greater than 6 weeks; therefore, an opiate signed contract is on the chart. 8. Risk assessment tool is low. Her functional assessment is 51/70. 9. Recreational drug use, she denies. She is not a smoker and does not drink alcohol. We checked the prescription monitoring system. The patient is filling appropriately from Dr. Nathan and there is a recent drug screen on the chart for this patient. She tells me she safeguards her medications at all times: PHYSICAL EXAMINATION: GENERAL: This is a well-developed, well-nourished black female who appears her stated age. She is alert and orientated and her speech is fluent. HEENT: Normocephalic, atraumatic. Extraocular eye muscles are intact. Mucous membranes are moist. EXTREMITIES: She has limited range of motion secondary to history of spinal fusion. Does complain of some tenderness that radiates into her bilateral arms. MUSCULOSKELETAL: Without significant kyphosis, scoliosis or lordosis. She does walk with an antalgic gait. Complains of right foot pain that is from her ankle to her toes. She also complains of bilateral greater toe pain as related to ingrown toenails. Her nails are visually growing inward into her toe. There is a slight redness and puffiness to her right foot greater toe. The patient is able to move from sitting to standing without difficulty, she does walk with an antalgic gait. ASSESSMENT: 1. History of cervical fusion with cervical radiculopathy. 2. Lumbar radicular pain. 3. Hypertension. 4. Complex medical management under terms of our opioid agreement. 5. Asthma. 6. Bilateral foot pain and greater bilateral toe pain. We reviewed the fact that opiate medications are being used to provide analgesia adequate to support activities of daily living, not attempting to achieve a specific pain score on the 0-10 Visual Analog Scale. The current opiate medications are providing sufficient analgesia to allow the patient to [address] [address] PAIN MANAGEMENT CONSULTATION Name: VARUN ALAS Room #: REG [facility].#: [id number] Admission: 05/31/18 ������������������ Attend Phys: Fina Hammonds Discharge: ������������������ Date of : 59 Report #: [id number] participate in activities of daily living. The patient is not exhibiting any aberrant behavior suggestive of drug diversion. The patient is not having any adverse reactions to medications. The patient is not suffering from daytime somnolence or mental acuity changes. The patient is managing opiate-induced constipation with appropriate mkpu-sfs-ginlmpu agents and dietary considerations. The patient was counseled on concern for caution with operating a motor vehicle while using opiate medications. A physical exam was performed and the patient's functional status was evaluated. All patients with back pain were advised against the bed rest greater than 4 days and were advised to return to normal activities. Pain score assessment was noted and the treatment plan was reviewed with the patient. All current medications, both prescribed and OTC were reviewed and reconciled on the electronic medical record. Tobacco screening was accomplished and smoking cessation was advised when indicated. BMI was noted and diet/exercise modification was recommended for all patients following outside normal parameters. I reviewed with the patient today their responsibilities to safeguard prescription medications, reviewed their responsibility to utilize medications only as prescribed by the physician. They are to seek and receive pain medications only from 1 physician group ( [facility]). They are to use 1 pharmacy and keep the clinic informed if they change pharmacies. Their responsibilities include making followup visits in a timely fashion and to avoid abrupt discontinuation of medication usage. Their responsibilities further include bringing their medications (bottles from the pharmacy with residual pills) to the visit for possible confirmation of pill counts and the patient understands it is their responsibility to submit to random drug screens to ensure both that the medications prescribed are present, and that no other controlled substances are present. All prescriptions provided today were generated electronically. PLAN: 1. We discussed several treatment options with the patient today. The patient tells me that her surgeon has encouraged her to participate in physical therapy. I reiterated that this would be a good thing to see if this is helpful for her foot pain prior to having any surgery. The patient tells me that it does hurt her to do this. I did explain that sometimes she does have to go through slight increase in pain for the benefits that will outweigh it. The patient says that she will go to physical therapy. 2. The patient also tells me that she is seeking a second opinion on her tendon issues regarding her right foot. I told her I think this is always a good idea to get second opinions before she considers surgery. 3. We talked in depth regarding her ingrown toenails today. The patient tells me that she is wanting to have an epidural injection, possibly from Dr. Nathan due to her neck pain, but she tells me that she has an ongoing infection in her [facility] [address] [place] [address] PAIN MANAGEMENT CONSULTATION Name: VARUN ALAS Room #: REG [facility] Narvaez#: [id number] Admission: 05/31/18 ������������������ Attend Phys: Fina Hammonds Discharge: ������������������ Date of : 59 Report #: [id number] greater toes on both feet related to ingrown toenail. She is seeing a culinary art teacher in about 3 weeks and then will have them removed. She feels that one of them is infected. I did talk to her that she needs to be free of infection before Dr. Nathan could give her an injection and the risks associated with having an epidural while on antibiotics and was having an infection in her body. 4. The patient tells me that the Lyrica has been helpful that we increased during the day, that she is still having some nerve issues in her neck and arms and in her legs. It was decided to increase her to Lyrica 100 mg 3 times a day. The patient will increase her samples that she has at home to 100 for a few days before filling her prescription. 5. Scripts given today for this patient on diclofenac gel 4 grams q.i.d. #3 tubes with 2 additional refills; Lyrica 100 mg 3 times a day; oxycodone 10/325, #120; OxyContin 30 mg once a day, #30; OxyContin 20 mg once a day, #30. 6. The patient denies any problems with constipation today. I also did reiterate that she needs to be mindful of this while we continue on all these medications and she has decreased mobility. The patient was seen with Dr. Nathan who collaborated care with this patient today. ��������������������������������������������� <ELECTRONICALLY SIGNED> ���������������������������������������� By: Fina Hammonds ��������������������������������������������� 06/01/18 0727 [id number] Fina Hammonds /selena
== END ==
LOC: PAIN 07:05
DX: M54.16 Radiculopathy, lumbar region (principal); M43.22 Fusion of spine, cervical region; M54.12 Radiculopathy, cervical region; M79.671 Pain in right foot; M79.672 Pain in left foot; I10 Essential (primary) hypertension; J45.909 Unspecified asthma, uncomplicated; Z79.899 Other long term (current) drug therapy; Z79.891 Long term (current) use of opiate analgesic

== ENCOUNTER → 2018-06-28 | Outpatient (CLI) | payer OTHER ==
[~2018-06-28] VITALS: Ht 157.5 cm; Wt 92.1 kg
[2018-06-28 10:13] VITALS: BP 168/73
--- NOTE | 2018-06-28 10:27 | NUR ---
Pain Clinic Assessment: 1. History of Osteoarthritis: ALL OVER History of Rheumatoid Arthritis: NO 2. Height: 5 ft. 2 in. 157.5 cm. Weight: 203.0 lb. oz. 92.080 kg. Patient's BMI: 37.1 3. Vital Signs: BP: 168/73 Pulse: 88 Resp: 16 Temp: 02 Sat: 100 ECG Mon: 4. Pain Intensity: 9-10 5. Fall Risk: Dizziness: N Needs help standing or walking: N Fallen in the last 3 months: N Fall risk comments: 6. Patient on Blood Thinner: None 7. History of Hypertension: Y 8. Opioid Therapy greater than 6 weeks: Y Opiate Contract Signed: 10/24/15 9. Risk Assessment Tool Provided: low risk-1 10. Functional Assessment Tool: 11. Recreational Drug Use: Never Drug Type: Tobacco Use: Never Smoker Tobacco Type: Amount or Packs/day: How Many Years: Alcohol Use: No Frequency: Quant:
--- NOTE | 2018-06-29 10:13 | HPC ---
[facility] [address] [address] PAIN MANAGEMENT CONSULTATION Name: VARUN ALAS Room #: REG [facility] MDung.#: [id number] Admission: 06/28/18 ������������������ Attend Phys: Fina Hammonds Discharge: ������������������ Date of : 59 Report #: [id number] THIS REPORT FOR: //name// CC: Fina Moore DATE OF SERVICE: 06/28/2018 CHIEF COMPLAINT: Chronic cervical radiculopathy, low back pain and bilateral foot pain. HISTORY OF PRESENT ILLNESS: The patient is a very pleasant 63-year-old female who returns to the pain clinic today for refill of her medications. She has ongoing Achilles tendons issues. She is not wearing her boot today. She tells me she is trying to go without it. She refuses to have surgery presently for this tendon in her right leg. She is worried about the outcome, so therefore she is trying to do her best to get by without surgery. The patient tells me she is having surgery on both feet for ingrown toenail removal on the 08/02/2018. She has been having ongoing infection for a couple of months related to this. The patient complains of pain at 9/10 today telling me that the weather is bad and this has been affecting her back pain. There are pressure changes. She does feel that her medicines have been helpful, although she does complain of low back, right knee, both hips and bilateral feet have an achy, stabbing pain. She would like a refill of her medications today. ALLERGIES: CODEINE. CURRENT MEDICATIONS: Voltaren gel as needed, Lyrica 100 mg 3 times a day, oxycodone 10 mg p.r.n., OxyContin 30 mg in the morning and 20 mg at night, tizanidine 4 mg 3 times a day, Advair, Zantac, aspirin, ibuprofen, Lasix, ProAir, Bentyl, promethazine, potassium, and Zestril. PQRS: 1. The patient does have arthritic changes in her neck, shoulders, knees and lower back. She is not being treated for rheumatoid arthritis. 2. Height is 5 feet 2 inches, weight is 203, BMI is 37. 3. Vital Signs: Blood pressure 168/73, pulse is 88, respirations 16, oxygen sat is 100%. 4. Pain score is 9-10. 4. Fall risk. Denies dizziness, does not need help walking or standing. Has not fallen in the last 3 months. 5. The patient is not on any blood thinners and does have history of hypertension. 6. Opioid therapy is greater than 6 weeks; therefore, an opioid contract is on the chart. [address] [address] PAIN MANAGEMENT CONSULTATION Name: BISHOPVARUNTALYA HIDALGO Room #: REG CLI ..#: [id number] Admission: 06/28/18 ������������������ Attend Phys: Fina Hammonds Discharge: ������������������ Date of : 59 Report #: [id number] 7. Her risk assessment tool is low. Her functional assessment is 51/70. 8. Recreational drug use, denies; does not smoke and does not drink alcohol. We did check the prescription monitoring system. The patient is filling appropriately with her medications from Dr. Nathan and she is due for a refill of this medication today. The patient does have a drug screen that is on the chart as well. She tells me she safeguards her medications. PHYSICAL EXAMINATION: GENERAL: This is a well-developed, well-nourished black female who appears her stated age. Placing her pain score today at 9-10/10. She is alert and orientated. HEENT: Normocephalic, atraumatic. Extraocular eye muscles are intact. Mucous membranes are moist. EXTREMITIES: She has limited range of motion due to her spinal fusion. She does walk with an antalgic gait. MUSCULOSKELETAL: Without significant kyphosis, scoliosis or lordosis. She complains of bilateral foot pain today, mostly centered around her greater toes on each foot, scheduled to have surgery for ingrown toenails later this month. Her nails are visually growing inward into her toe and red and puffy, swollen on her left greater big toe. The patient is able to move from sitting to standing without difficulty. Lower extremity strength judged to be 5/5 bilaterally in all major muscle groups. ASSESSMENT: 1. History of cervical fusion with cervical radiculopathy. 2. Lumbar radiculopathy. 3. Hypertension. 4. Asthma. 5. Bilateral foot pain and greater toe pain bilaterally. 6. Complex medical management under terms of written opioid agreement. We reviewed the fact that opiate medications are being used to provide analgesia adequate to support activities of daily living, not attempting to achieve a specific pain score on the 0-10 Visual Analog Scale. The current opiate medications are providing sufficient analgesia to allow the patient to participate in activities of daily living. The patient is not exhibiting any aberrant behavior suggestive of drug diversion. The patient is not having any adverse reactions to medications. The patient is not suffering from daytime somnolence or mental acuity changes. The patient is managing opiate-induced constipation with appropriate vmji-rzx-vjpoctx agents and dietary considerations. The patient was counseled on concern for caution with operating a motor vehicle while using opiate medications. A physical exam was performed and the patient's functional status was evaluated. All patients with back pain were advised against the bed rest greater than 4 [facility] [address] [place] [address] PAIN MANAGEMENT CONSULTATION Name: VARUN ALAS Room #: REG [facility] M..#: [id number] Admission: 06/28/18 ������������������ Attend Phys: Fina Hammonds Discharge: ������������������ Date of : 59 Report #: [id number] days and were advised to return to normal activities. Pain score assessment was noted and the treatment plan was reviewed with the patient. All current medications, both prescribed and OTC were reviewed and reconciled on the electronic medical record. Tobacco screening was accomplished and smoking cessation was advised when indicated. BMI was noted and diet/exercise modification was recommended for all patients following outside normal parameters. I reviewed with the patient today their responsibilities to safeguard prescription medications, reviewed their responsibility to utilize medications only as prescribed by the physician. They are to seek and receive pain medications only from 1 physician group ( [facility]). They are to use 1 pharmacy and keep the clinic informed if they change pharmacies. Their responsibilities include making followup visits in a timely fashion and to avoid abrupt discontinuation of medication usage. Their responsibilities further include bringing their medications (bottles from the pharmacy with residual pills) to the visit for possible confirmation of pill counts and the patient understands it is their responsibility to submit to random drug screens to ensure both that the medications prescribed are present, and that no other controlled substances are present. All prescriptions provided today were generated electronically. PLAN: 1. We discussed treatment options with the patient. The patient will be having foot surgery at the end of July. I instructed the patient that she should try to take less of her breakthrough pain medicines several days before her surgery that will enable her to have a few additional pills, the first couple of days postop. I do not believe that she will require any additional pain medicines other than this to schedule her surgery. The patient is to continue her OxyContin as directed through this postoperative time. The patient verbalizes understanding. 2. Scripts given today for oxycodone 10/325, #120, OxyContin 30 mg, #30, OxyContin 20 mg, #30, tizanidine 4 mg t.i.d., #90 with 2 additional refills that medicine was faxed to [facility] who fills her medications for her. 3. The patient denies any problems with constipation or daytime sleepiness of this medicine. She tells me that she is able to function quite well with her current regimen. 4. The patient is seen in collaboration today with Dr. Jim Nathan. ��������������������������������������������� <ELECTRONICALLY SIGNED> ���������������������������������������� By: Fina Hammonds ��������������������������������������������� 06/29/18 1013 [id number] 1915 Fina Hammonds /selena
== END ==
LOC: PAIN 07:09
DX: M54.12 Radiculopathy, cervical region (principal); G89.29 Other chronic pain; I10 Essential (primary) hypertension; M54.16 Radiculopathy, lumbar region; J45.909 Unspecified asthma, uncomplicated; Z88.5 Allergy status to narcotic agent; Z79.899 Other long term (current) drug therapy; Z79.891 Long term (current) use of opiate analgesic

== ENCOUNTER → 2018-07-26 | Outpatient (CLI) | payer OTHER ==
[~2018-07-26] VITALS: Ht 157.5 cm; Wt 89.7 kg
--- NOTE | ~2018-07-26 | HPC ---
[facility] [address] [address] PAIN MANAGEMENT CONSULTATION Name: VARUN ALAS Room #: REG KRYSTLE Solange#: [id number] Admission: 07/26/18 ������������������ Attend Phys: Scooby Nathan MD Discharge: ������������������ Date of : 59 Report #: [id number] THIS REPORT FOR: //name// CC: Bk Nathan DATE OF SERVICE: 07/26/2018 CHIEF COMPLAINT: Here for medications. "My neck is still painful. I am going to have my ingrown toenails treated next week." HISTORY: The patient is a 63-year-old female who has been followed in the pain clinic. As you recall, she has quite a bit of pain from different areas. She has had surgery in the neck area with fusion. Has pain in the lower portion of her back. She has been experiencing pain and discomfort in her great toes bilaterally. She has ingrown toenails, which are quite problematic and need surgery. States that in the next few days. She is scheduled to undergo surgery to help correct the pain. States that they will remove some parts of her toenail in an effort to improve her discomfort. She continues to walk with a very slow and antalgic gait because of her pain and discomfort. She rates her pain as an 8/10. Notes that pain is exacerbated by walking, moving and the weather has been difficult as well because of the change in barometric pressure. Notes that her pain improves when she rests in a hot tub as well as with using her pain medications and pain creams. Pain is most problematic in the neck, back, right knee, bilateral hips and the right foot as well as her toenails. ALLERGIES: CODEINE. CURRENT MEDICATIONS: Voltaren gel p.r.n. as needed, Lyrica 100 mg t.i.d., oxycodone 10 mg p.r.n., OxyContin 30 mg in the morning, 20 mg at night, tizanidine 4 mg t.i.d., Advair, Zantac, aspirin, ibuprofen, Lasix, ProAir, Bentyl, Promethazine, potassium, Zestril. PAIN CLINIC ASSESSMENT/PQRS: 1. The patient does have some arthritic change in her neck. She has had neck surgery. Complains of knee pain. She is not being treated for rheumatoid arthritis. 2. Height 5 feet 2 inches, weight 197 pounds, BMI 36.2. 3. VITAL SIGNS: Blood pressure 117/77, pulse 86, respiratory rate 16, room air saturation. 4. Pain intensity 8/10. 5. Fall history. The patient has not fallen in the last 3 months. 6. Blood thinner. The patient is not on a blood thinning medication. 7. Hypertension. The patient has been treated for hypertension. 8. Opioid greater than 6 weeks. The [facility]. [address] [address] PAIN MANAGEMENT CONSULTATION Name: VARUN ALAS Room #: REG [facility].#: [id number] Admission: 07/26/18 ������������������ Attend Phys: Scooby Nathan MD Discharge: ������������������ Date of : 59 Report #: [id number] 9. Risk assessment tool, low for opioid use. 10. Functional assessment tool . 11. Recreational drug use. The patient denies. 12. Tobacco: The patient has never smoked. 13. Alcohol: The patient denies use of alcoholic beverages. PHYSICAL EXAMINATION: GENERAL: The patient is a well-developed, well-nourished black female, appears her stated age. She is alert and oriented x 3. Her affect is appropriate. Speech is fluent. HEAD, EYES, EARS, NOSE, AND THROAT: Normocephalic, atraumatic. Extraocular eye muscles intact. Sclerae nonicteric. Mucous membranes are moist. NECK: Without adenopathy or JVD. The patient has some limitation in her movement of her neck secondary to fusion. HEART: Regular rate. S1, S2. ABDOMEN: Nontender. Bowel sounds present. EXTREMITIES: Upper extremity muscle strength is judged to be 4+/5 in the major muscle groups in the upper extremity. The patient has pain and discomfort in the lower portion of her back. Complains of pain that radiates down to the lumbar area. Also, has pain and discomfort in the left and right great toe. The significant evidence of curling of her toenails presenting ingrown nails are present. The patient's toes are quite hypersensitive to touch. The patient is wearing a pair of sandals. Walks slow fashion and antalgic. IMPRESSION: 1. History of cervical fusion with radicular pain. 2. History of lumbar radicular pain involving the low back area. 3. Upper respiratory problems. 4. History of asthma, stable. 5. Hypertension. 6. Ingrown toenails left and right great toe. RECOMMENDATION: The patient states that she is going to have surgery in the next few days on the toe to help decrease the pain and discomfort. She will continue with her medications. She will call us if she has any concerns. The patient may require a bit of a bump in her medications because of her chronic use of opioids. Hopefully, after the toe areas have been numb she will not have overwhelming pain. She will call us if she has any concerns. A script for her medications of OxyContin 20 mg 1 p.o. at bedtime, OxyContin 30 mg 1 p.o., oxycodone 10/325, Voltaren gel 1% to the upper extremity, Lyrica 100 mg p.o. t.i.d., have all been rewritten. The patient will call us if she has any concerns. We would like to thank you for letting us to participate in her care. [address] [address] PAIN MANAGEMENT CONSULTATION Name: VARUN ALAS Room #: REG [facility].#: [id number] Admission: 07/26/18 ������������������ Attend Phys: Scooby Nathan MD Discharge: ������������������ Date of : 59 Report #: [id number] We hope she continues to improve. Hopefully, after her toenails have healed she will find it easier to exercise and will experience much less discomfort. ��������������������������������������������� ���������������������������������������� By: ��������������������������������������������� 1547 [id number] Scooby Nathan MD /ADI
[2018-07-26 10:49] VITALS: BP 117/77
--- NOTE | 2018-07-26 11:06 | NUR ---
Pain Clinic Assessment: 1. History of Osteoarthritis: ALL OVER History of Rheumatoid Arthritis: NO 2. Height: 5 ft. 2 in. 157.5 cm. Weight: 197.8 lb. oz. 89.722 kg. Patient's BMI: 36.2 3. Vital Signs: BP: 117/77 Pulse: 86 Resp: 16 Temp: 02 Sat: 97 ECG Mon: 4. Pain Intensity: 8 5. Fall Risk: Dizziness: N Needs help standing or walking: N Fallen in the last 3 months: N Fall risk comments: 6. Patient on Blood Thinner: None 7. History of Hypertension: Y 8. Opioid Therapy greater than 6 weeks: Y Opiate Contract Signed: 10/24/15 9. Risk Assessment Tool Provided: low risk-1 10. Functional Assessment Tool: 11. Recreational Drug Use: Never Drug Type: Tobacco Use: Never Smoker Tobacco Type: Amount or Packs/day: How Many Years: Alcohol Use: No Frequency: Quant:
== END ==
LOC: PAIN 07:05
DX: Z76.0 Encounter for issue of repeat prescription (principal); I10 Essential (primary) hypertension; J45.909 Unspecified asthma, uncomplicated; L60.0 Ingrowing nail; J06.9 Acute upper respiratory infection, unspecified

== ENCOUNTER → 2018-08-23 | Outpatient (CLI) | payer OTHER ==
[~2018-08-23] VITALS: Ht 157.5 cm; Wt 89.8 kg
[~2018-08-23] MED LIST changes: +SINGULAIR 10 MG10 M1 PO
[2018-08-23 11:13] VITALS: BP 149/82
--- NOTE | 2018-08-23 11:19 | NUR ---
Pain Clinic Assessment: 1. History of Osteoarthritis: ALL OVER History of Rheumatoid Arthritis: NO 2. Height: 5 ft. 2 in. 157.5 cm. Weight: 198.0 lb. oz. 89.812 kg. Patient's BMI: 36.2 3. Vital Signs: BP: 149/82 Pulse: 80 Resp: 16 Temp: 02 Sat: 100 ECG Mon: 4. Pain Intensity: 9 5. Fall Risk: Dizziness: N Needs help standing or walking: N Fallen in the last 3 months: N Fall risk comments: 6. Patient on Blood Thinner: None 7. History of Hypertension: Y 8. Opioid Therapy greater than 6 weeks: Y Opiate Contract Signed: 10/24/15 9. Risk Assessment Tool Provided: low risk-1 10. Functional Assessment Tool: 11. Recreational Drug Use: Never Drug Type: Tobacco Use: Never Smoker Tobacco Type: Amount or Packs/day: How Many Years: Alcohol Use: No Frequency: Quant:
--- NOTE | 2018-08-24 07:23 | HPC ---
[facility] [address] [place] [address] PAIN MANAGEMENT CONSULTATION Name: VARUN ALAS Room #: REG [facility].#: [id number] Admission: 08/23/18 ������������������ Attend Phys: Fina Hammonds Discharge: ������������������ Date of : 59 Report #: [id number] THIS REPORT FOR: //name// CC: Fina RICAHRDS MD DATE OF SERVICE: 08/23/2018 CHIEF COMPLAINT: Bilateral foot pain, chronic cervical radiculopathy and lumbar radiculopathy. HISTORY OF PRESENT ILLNESS: This is a very pleasant 63-year-old female who returns to the pain clinic today for refill of her pain medications. She has pain with multiple pain generators. Today, she complains of ongoing neck pain and low back pain that radiates into her bilateral hips and radiates to her knees. She also complains of bilateral foot pain, most especially her greater toes on both feet. She tells me that she did go see her technician automated equipment and had her ingrown toenails removed, has had a followup check with that doctor, but she continues to have pain in both of her greater toes. She does have some swelling in her feet as well today. Her pain score is 9/10. It is a constant aching, throbbing pain, worse with moving and walking. Her medications do help some, but her pain is aggravated in her feet most today. The patient tells me she is also having some ongoing nausea, she does not have vomiting, but she tells me as she has stopped taking her ibuprofen and started taking some Protonix for acid reflux, she is going to have a scope done soon to see if there was anything else that they recommend. She said this is going to be done by her accountant systems. She is requesting some Phenergan that she gets periodically from Dr. Nathan to help with this nausea. ALLERGIES: CODEINE. CURRENT MEDICATIONS: Singulair, Lyrica, oxycodone 10/325, OxyContin 30 mg, OxyContin 20 mg b.i.d., Voltaren gel, tizanidine, Advair, Zantac, aspirin, Lasix, ProAir, Bentyl, promethazine, potassium and lisinopril. PQRS: The patient has some arthritic changes in her neck and knees. She is not being treated for rheumatoid arthritis. Height is 5 feet 2 inches, weight is 198, BMI is 36. Vital signs: Blood pressure 149/82, pulse is 80, respirations 16, oxygen sat 100, pain score is 9/10. Fall risk: Denies dizziness. Does not need help with walking or standing. She has not fallen in the last 3 months. The patient is not on any blood thinner. She does take medicine for hypertension. Opioid therapy is greater than 6 weeks, therefore an opioid signed contract is on the chart. Her risk assessment tool is low. Functional assessment is 51/70. She denies any recreational drug use. She does not smoke [address] [address] PAIN MANAGEMENT CONSULTATION Name: VARUN ALAS Room #: REG KRYSTLE Narvaez#: [id number] Admission: 08/23/18 ������������������ Attend Phys: Fina Hammonds Discharge: ������������������ Date of : 59 Report #: [id number] and does not use alcohol. We did check the prescription monitoring system. The patient is due for her medications today. There is a recent drug screen on the chart. She tells me that she does safeguard her medicines at all time. We reviewed the fact that opiate medications are being used to provide analgesia adequate to support activities of daily living, not attempting to achieve a specific pain score on the 0-10 Visual Analog Scale. The current opiate medications are providing sufficient analgesia to allow the patient to participate in activities of daily living. The patient is not exhibiting any aberrant behavior suggestive of drug diversion. The patient is not having any adverse reactions to medications. The patient is not suffering from daytime somnolence or mental acuity changes. The patient is managing opiate-induced constipation with appropriate mzyb-pdl-gfzqxge agents and dietary considerations. The patient was counseled on concern for caution with operating a motor vehicle while using opiate medications. A physical exam was performed and the patient's functional status was evaluated. All patients with back pain were advised against the bed rest greater than 4 days and were advised to return to normal activities. Pain score assessment was noted and the treatment plan was reviewed with the patient. All current medications, both prescribed and OTC were reviewed and reconciled on the electronic medical record. Tobacco screening was accomplished and smoking cessation was advised when indicated. BMI was noted and diet/exercise modification was recommended for all patients following outside normal parameters. I reviewed with the patient today their responsibilities to safeguard prescription medications, reviewed their responsibility to utilize medications only as prescribed by the physician. They are to seek and receive pain medications only from 1 physician group ( [facility]). They are to use 1 pharmacy and keep the clinic informed if they change pharmacies. Their responsibilities include making followup visits in a timely fashion and to avoid abrupt discontinuation of medication usage. Their responsibilities further include bringing their medications (bottles from the pharmacy with residual pills) to the visit for possible confirmation of pill counts and the patient understands it is their responsibility to submit to random drug screens to ensure both that the medications prescribed are present, and that no other controlled substances are present. All prescriptions provided today were generated electronically. PHYSICAL EXAMINATION: GENERAL: The patient is a well-developed, well-nourished black female who appears her stated age. She is alert and orientated. Her affect is appropriate. [facility] [address] [place] [address] PAIN MANAGEMENT CONSULTATION Name: VARUN ALAS Room #: REG [facility].#: [id number] Admission: 08/23/18 ������������������ Attend Phys: Fina Hammonds Discharge: ������������������ Date of : 59 Report #: [id number] HEENT: Normocephalic, atraumatic. Extraocular eye muscles are intact. Mucous membranes are moist. NECK: Without adenopathy or JVD. She has some limitations in the movement of her neck secondary to her fusion. ABDOMEN: Complains of nausea today. No vomiting present. EXTREMITIES: Upper extremity strength judged to be 4/5 in major muscle groups in her upper extremities. She has discomfort across her lumbar spine that radiates into her bilateral hips. She also has pain in greater toe on both feet. They are wrapped with gauze from her previous ingrown toenail removal. She has edema in bilateral feet 2+, it is not in her lower extremities. She walks with an antalgic gait. IMPRESSION: 1. History of cervical fusion with radicular pain. 2. History of lumbar radiculopathy. 3. Asthma. 4. Gastro reflux. 5. Hypertension. 6. Ingrown toenails bilaterally great toe. 7. Complex medical management under terms of written opioid agreement. PLAN: 1. We discussed treatment options with the patient today. The patient tells me most of her pain is located in her feet from her recent toenail removal. She does have quite a bit of edema in her feet present today. I encouraged her to keep them elevated when she is able at home and if the pain and swelling continues, she needs to return to her technician automated equipment. 2. The patient complains of significant nausea and acid reflux. I encouraged her to stop her ibuprofen. She informed me she already had and is now taking Nexium and is going to have a scope soon to see if something is going on that is treatable or if they need to switch medications. 3. Script given for Phenergan 25 mg pills, #20. The patient to take these very sparingly. She has had these in the past from Dr. Nathan and they are helpful with her nausea when it occurs. 4. Scripts given for her oxycodone 10/325 #120 and OxyContin 30 mg in the morning and OxyContin 20 mg at night for 1 month. None of her other medications were needed to be filled today. 5. The patient is seen in collaboration today with Dr. Pola Casanova, he did see the patient as well. ��������������������������������������������� <ELECTRONICALLY SIGNED> ���������������������������������������� By: Fina Hammonds ��������������������������������������������� 08/24/18 0723 [id number] Fina Hammonds /selena
== END ==
LOC: PAIN 06:50
DX: M54.12 Radiculopathy, cervical region (principal); L60.0 Ingrowing nail; M79.671 Pain in right foot; M79.672 Pain in left foot; K21.9 Gastro-esophageal reflux disease without esophagitis; I10 Essential (primary) hypertension; Z79.899 Other long term (current) drug therapy

== ENCOUNTER → 2018-09-20 | Outpatient (CLI) | payer OTHER ==
[~2018-09-20] VITALS: Ht 157.5 cm; Wt 90.7 kg
[2018-09-20 11:34] VITALS: BP 99/62
--- NOTE | 2018-09-20 11:37 | NUR ---
Pain Clinic Assessment: 1. History of Osteoarthritis: ALL OVER History of Rheumatoid Arthritis: NO 2. Height: 5 ft. 2 in. 157.5 cm. Weight: 200.0 lb. oz. 90.720 kg. Patient's BMI: 36.6 3. Vital Signs: BP: 99/62 Pulse: 74 Resp: 14 Temp: 02 Sat: 96 ECG Mon: 4. Pain Intensity: 9 5. Fall Risk: Dizziness: N Needs help standing or walking: N Fallen in the last 3 months: N Fall risk comments: 6. Patient on Blood Thinner: None 7. History of Hypertension: Y 8. Opioid Therapy greater than 6 weeks: Y Opiate Contract Signed: 10/24/15 9. Risk Assessment Tool Provided: low risk-1 10. Functional Assessment Tool: 11. Recreational Drug Use: Never Drug Type: Tobacco Use: Never Smoker Tobacco Type: Amount or Packs/day: How Many Years: Alcohol Use: No Frequency: Quant:
--- NOTE | 2018-09-20 15:16 | HPC ---
[facility] [place] [address] PAIN MANAGEMENT CONSULTATION Name: VARUN ALAS Room #: REG [facility].#: [id number] Admission: 09/20/18 ������������������ Attend Phys: Fina Hammonds Discharge: ������������������ Date of : 59 Report #: [id number] THIS REPORT FOR: //name// CC: Fina Lazcano MD DATE OF SERVICE: 09/20/2018 CHIEF COMPLAINT: Bilateral foot pain, chronic cervical radiculopathy and lumbar radiculopathy. HISTORY OF PRESENT ILLNESS: This is a pleasant 63-year-old female who returns to the pain clinic today complaining of ongoing foot pain with left greater toe worse than the right and ongoing cervical neck issues. The patient tells me that her pain score is a 9/10 today, mostly because she feels that her left toe is swollen, hurts to bend it, and she thinks that she has nerve pain in it since she has had the toenail removed. She will be going back to her mill oiler next week. The patient tells me that she has been having ongoing neck issues and feels that she is in need of a cervical epidural steroid injection, but she is needing to wait until she has made sure she has no infection in her toe before Dr. Nathan will give her an injection. The patient is hopeful to do that within the next month. Her pain pills are effective in controlling her low back pain, knee pain and some of her neck pain, but not her foot pain today. She denies any problems with constipation or daytime sleepiness. ALLERGIES: CODEINE. CURRENT LIST OF MEDICATIONS: Phenergan p.r.n., oxycodone 10/325 up to 4 times a day, OxyContin 50 mg b.i.d., Singulair, Lyrica 100 mg 3 times a day, Voltaren gel 4 times a day, tizanidine 4 mg p.r.n., Zantac, aspirin, ibuprofen, Lasix, ProAir, Bentyl, potassium and lisinopril. PQRS: 1. The patient has osteoarthritis in her knees, back and neck. She is not being treated for rheumatoid arthritis. 2. Height is 5 feet 2 inches, weight is 200, BMI is 36. Vital signs 99/62, pulse is 74, respirations 14, oxygen sat is 96. Pain score 9/10 3. Fall risk. Denies dizziness. Does not need help standing or walking, has not fallen in the last 3 months. The patient is not on any blood thinners, does take medicine for hypertension. Opiate therapy is greater than 6 weeks; therefore, an opiate signed contract is on the chart. Her risk assessment tool is low. Functional assessment is 51/70. Recreational drug use, she denies. She is not a smoker and does not drink alcohol. Prescription monitoring system is appropriate for her medications. [address] [address] PAIN MANAGEMENT CONSULTATION Name: VARUN ALAS Room #: REG CL Solange#: [id number] Admission: 09/20/18 ������������������ Attend Phys: Fina Hammonds Discharge: ������������������ Date of : 59 Report #: [id number] PHYSICAL EXAMINATION: GENERAL: This is a well-developed, well-nourished, well-hydrated 63-year-old female who appears her stated age, placing her current pain score today at 9/10. HEENT: Normocephalic, atraumatic. Extraocular eye muscles are intact. Mucous membranes are moist. NECK: Without adenopathy or JVD. She has limited movement in her neck secondary to her fusion. Complains of neck that radiates into her right shoulder today. EXTREMITIES: Upper extremity strength judged to be 4/5 in all major muscle groups. She has pain across the lumbar spine that radiates into her bilateral hips, her greater toe on her left foot is throbbing and tingling today and her feet have 1+ edema. IMPRESSION: 1. History of cervical fusion with radicular pain. 2. History of lumbar radiculopathy. 3. Ingrown toenails removed of the bilateral great toe. 4. Complex medical management in terms of written opioid agreement. We reviewed the fact that opiate medications are being used to provide analgesia adequate to support activities of daily living, not attempting to achieve a specific pain score on the 0-10 Visual Analog Scale. The current opiate medications are providing sufficient analgesia to allow the patient to participate in activities of daily living. The patient is not exhibiting any aberrant behavior suggestive of drug diversion. The patient is not having any adverse reactions to medications. The patient is not suffering from daytime somnolence or mental acuity changes. The patient is managing opiate-induced constipation with appropriate [id number]-kpvsejt agents and dietary considerations. The patient was counseled on concern for caution with operating a motor vehicle while using opiate medications. A physical exam was performed and the patient's functional status was evaluated. All patients with back pain were advised against the bed rest greater than 4 days and were advised to return to normal activities. Pain score assessment was noted and the treatment plan was reviewed with the patient. All current medications, both prescribed and OTC were reviewed and reconciled on the electronic medical record. Tobacco screening was accomplished and smoking cessation was advised when indicated. BMI was noted and diet/exercise modification was recommended for all patients following outside normal parameters. I reviewed with the patient today their responsibilities to safeguard prescription medications, reviewed their responsibility to utilize medications only as prescribed by the physician. They are to seek and receive pain medications only from 1 physician group ( [facility]). They are to use [address] [address] PAIN MANAGEMENT CONSULTATION Name: BISHOPVARUNTALYA HIDALGO Room #: REG KRYSTLE Narvaez#: [id number] Admission: 09/20/18 ������������������ Attend Phys: Fina Hammonds Discharge: ������������������ Date of : 59 Report #: [id number] pharmacy and keep the clinic informed if they change pharmacies. Their responsibilities include making followup visits in a timely fashion and to avoid abrupt discontinuation of medication usage. Their responsibilities further include bringing their medications (bottles from the pharmacy with residual pills) to the visit for possible confirmation of pill counts and the patient understands it is their responsibility to submit to random drug screens to ensure both that the medications prescribed are present, and that no other controlled substances are present. All prescriptions provided today were generated electronically. PLAN: 1. We discussed treatment options with the patient today. I encouraged her to revisit her mill oiler to see about infection or other issues going on with her left toe. The patient verbalizes understanding. 2. Scripts given for her OxyContin 30 mg in am, 20 mg at bedtime, oxycodone 10/325, #120 and tizanidine 4 mg t.i.d., #90. 3. The patient made an appointment for one month for possible injection with Dr. Jim Nathan. 4. The patient is seen in collaboration today with Dr. Nathan. ��������������������������������������������� <ELECTRONICALLY SIGNED> ���������������������������������������� By: Fina Hammonds ��������������������������������������������� 09/20/18 1516 [id number] [id number] Fina Hammonds /nt
== END ==
LOC: PAIN 11:18
DX: M54.16 Radiculopathy, lumbar region (principal); M54.12 Radiculopathy, cervical region; Z79.891 Long term (current) use of opiate analgesic

== ENCOUNTER → 2018-10-20 | Outpatient (CLI) | payer OTHER ==
[~2018-10-20] VITALS: Ht 157.5 cm; Wt 91.2 kg
--- NOTE | ~2018-10-20 | HPC ---
[facility] [place] [address] [place] [address] PAIN MANAGEMENT CONSULTATION Name: VARUN ALAS Room #: REG KRYSTLE Porter.#: [id number] Admission: 10/20/18 Attend Phys: Scooby Nathan MD Discharge: Date of : 59 Report #: [id number] THIS REPORT FOR: //name// CC: Scooby RICHARDS DATE OF SERVICE: 10/20/2018 CHIEF COMPLAINT: Here for medication renewal. HISTORY: The patient who has been followed in the Pain Clinic for quite a number of years. She suffers from chronic pain involving her neck as well as back pain. She has had surgery in the neck area with fusion. Continues to have pain in the lower portion of her back. Has had some problems with her knees in the past. She has undergone surgery recently because of pain in her toenail. This was removed. At this point, she has returned today with a desire to have her medications renewed. She does not have any problems with her medications. ALLERGIES: CODEINE. CURRENT MEDICATIONS: Phenergan p.r.n., oxycodone 10/325 one p.o. q.i.d., OxyContin 50 mg b.i.d., Singulair, Lyrica 100 mg t.i.d., Voltaren gel 4 times daily to the upper extremity, tizanidine 4 mg p.r.n., Zanaflex, aspirin, ibuprofen, Lasix, ProAir, Bentyl, potassium, lisinopril. PAIN CLINIC AND PQRS: 1. The patient has osteoarthritic changes in her knees, back and neck. She is not being treated for rheumatoid arthritis. 2. Height 5 feet 2 inches, weight 201 pounds, BMI is 36.8. 3. Vital Signs: Blood pressure 150/95, pulse 75, respiratory rate 15, room air saturations 100%. 4. Pain intensity, /10. 5. Fall history: The patient has not fallen in the last 3 months. 6. Blood thinner. The patient is not on a blood thinning medication. 7. Hypertension. The patient is being treated for hypertension. 8. Opioids greater than 6 weeks. The patient receives her medication from one source the Pain Clinic. 9. Risk assessment tool low/moderate for pain. 10. Functional assessment tool, 51/70. 11. Recreational drug use. The patient denies use of recreational drugs. 12. Tobacco: The patient does not smoke. 13. Alcohol. The patient denies use of alcoholic beverages. PHYSICAL EXAMINATION: GENERAL: The patient is a well-developed, well-nourished black female, appears her stated age. She is alert and oriented x 3. Her affect is appropriate. [address] [address] PAIN MANAGEMENT CONSULTATION Name: VARUN ALAS Room #: REG CLI [facility]#: [id number] Admission: 10/20/18 Attend Phys: Scooby Nathan MD Discharge: Date of : 59 Report #: [id number] Speech is fluent. HEENT: Normocephalic, atraumatic. Extraocular eye muscles intact. NECK: Some limited range of motion. Complains of some pain and discomfort in her shoulders and down into her arms. CHEST: Clear to auscultation. HEART: Regular rate. ABDOMEN: Protuberant, but nontender. MUSCULOSKELETAL: Upper extremity muscle strength judged to be 5-/5 for the major muscle groups in the upper extremity and lower extremity 5-/5. The patient complains of back pain with some pain that radiates down the lower portion of her back in the L4-L5 dermatomal distribution. IMPRESSION: 1. History of cervical fusion with radicular pain. 2. History of chronic lumbar pain. 3. Ingrown toenails removal. 4. Complex medical management using opioid medications. RECOMMENDATIONS: We discussed treatment options with the patient. At this juncture, we will continue with her medications. Risks and benefits of opioid medications have been discussed. Possible complications of the procedure, which could include but are not limited to infection, worsening pain, no improvement in pain were described. The patient is aware that opioid medications can become less effective over a period of time secondary to development of tolerance. A script for her medications have been written. They include OxyContin 20 mg 1 p.o. at bedtime, OxyContin 30 mg 1 p.o. q. a.m., oxycodone 10/325 one p.o. 120 tablets. The patient will call us if she has any concerns. We would like to thank you for letting us participate in her care. We hope she continues to improve. By: [id number] Scooby Nathan MD /selena
[2018-10-20 11:42] VITALS: BP 150/95
--- NOTE | 2018-10-20 11:48 | NUR ---
Pain Clinic Assessment: 1. History of Osteoarthritis: ALL OVER History of Rheumatoid Arthritis: NO 2. Height: 5 ft. 2 in. 157.5 cm. Weight: 201.0 lb. oz. 91.173 kg. Patient's BMI: 36.8 3. Vital Signs: BP: 150/95 Pulse: 75 Resp: 15 Temp: 02 Sat: 100 ECG Mon: 4. Pain Intensity: 9 5. Fall Risk: Dizziness: N Needs help standing or walking: N Fallen in the last 3 months: N Fall risk comments: 6. Patient on Blood Thinner: None 7. History of Hypertension: Y 8. Opioid Therapy greater than 6 weeks: Y Opiate Contract Signed: 10/24/15 9. Risk Assessment Tool Provided: low risk-1 10. Functional Assessment Tool: 11. Recreational Drug Use: Never Drug Type: Tobacco Use: Never Smoker Tobacco Type: Amount or Packs/day: How Many Years: Alcohol Use: No Frequency: Quant:
== END ==
LOC: PAIN 06:54
DX: M54.5 Low back pain (principal); G89.29 Other chronic pain; Z79.891 Long term (current) use of opiate analgesic; L60.0 Ingrowing nail

== ENCOUNTER → 2018-11-17 | Outpatient (CLI) | payer OTHER ==
[~2018-11-17] VITALS: Ht 157.5 cm; Wt 91.2 kg
[2018-11-17 11:13] VITALS: BP 110/65
--- NOTE | 2018-11-17 11:17 | NUR ---
Pain Clinic Assessment: 1. History of Osteoarthritis: ALL OVER History of Rheumatoid Arthritis: NO 2. Height: 5 ft. 2 in. 157.5 cm. Weight: 201.0 lb. oz. 91.173 kg. Patient's BMI: 36.8 3. Vital Signs: BP: 110/65 Pulse: 75 Resp: 14 Temp: 02 Sat: 100 ECG Mon: 4. Pain Intensity: 9 5. Fall Risk: Dizziness: N Needs help standing or walking: N Fallen in the last 3 months: N Fall risk comments: 6. Patient on Blood Thinner: None 7. History of Hypertension: Y 8. Opioid Therapy greater than 6 weeks: Y Opiate Contract Signed: 10/24/15 9. Risk Assessment Tool Provided: low risk-1 10. Functional Assessment Tool: 11. Recreational Drug Use: Never Drug Type: Tobacco Use: Never Smoker Tobacco Type: Amount or Packs/day: How Many Years: Alcohol Use: No Frequency: Quant:
--- NOTE | 2018-11-20 14:39 | HPC ---
[facility] [place] [address] PAIN MANAGEMENT CONSULTATION Name: VARUN ALAS Room #: REG [facility] M.R.#: [id number] Admission: 11/17/18 ������������������ Attend Phys: Fina Hammonds Discharge: ������������������ Date of : 59 Report #: [id number] THIS REPORT FOR: //name// CC: Fina Hammonds DAPHNE RICHARDS DATE OF SERVICE: 11/17/2018 CHIEF COMPLAINT: Chronic pain in her neck and lumbar spine. HISTORY OF PRESENT ILLNESS: This is a 63-year-old female who returns to the pain clinic today for a refill of her medications that she uses to help treat her ongoing neck and low back pain. She does also have pain that radiates into her hips and is currently having pain in her right greater toe. She rates her pain score at 9/10 today. It is mostly a constant, aching pain but currently, she is having shooting pain in her right greater toe. Her pain is worse with moving and walking and weather changes. She finds her medication very beneficial as well as her pain cream, though she is rating her pain score at 9/10 today. She denies any problems with overmedication or constipation. She would like a refill today of her medications. ALLERGIES: CODEINE. CURRENT LIST OF MEDICATIONS: Tizanidine 4 mg 3 times a day p.r.n., Lyrica 100 mg 3 times a day, oxycodone 10/325 p.r.n., OxyContin 50 mg daily, Singulair 10 mg at bedtime, Advair, Zantac, aspirin, Motrin, Lasix, Bentyl, potassium and Zestril. PQRS: 1. She has known arthritic changes in her bilateral knees, back and neck. She is not being treated for rheumatoid arthritis. 2. Height is 5 feet 2 inches, weight is 201. BMI is 36. 3. Vital signs 110/65, pulse is 75, respirations 14, oxygen sat is 100. 4. Pain score is 9/10. 5. Denies dizziness, does not need help walking or standing, has not fallen in the last 3 months. 6. The patient is not on any blood thinners, does take medicine for hypertension. 7. Opioid therapy is greater than 6 weeks; therefore, an opioid signed contract is on the chart. Risk assessment tool is low. Functional assessment is 51/70. 8. Recreational drug use, she denies, is not a smoker and does not drink alcohol. According to the prescription monitoring system, the patient is filling appropriately for her medications in a timely fashion. There is a recent drug screen on the chart as well. [address] [address] PAIN MANAGEMENT CONSULTATION Name: VARUN ALAS Room #: REG KRYSTLE Narvaez#: [id number] Admission: 11/17/18 ������������������ Attend Phys: Fina Hammonds Discharge: ������������������ Date of : 59 Report #: [id number] PHYSICAL EXAMINATION: GENERAL: This is a well-developed, well-nourished black female who appears her stated age, placing her current pain score at 9/10 today. She is alert and orientated. HEENT: Normocephalic, atraumatic. Extraocular eye muscles are intact. NECK: She has limited range of motion in her neck, complains of tenderness in her shoulders and down into her bilateral arms. ABDOMEN: Protuberant, but nontender. MUSCULOSKELETAL: Upper extremity strength judged to be 5/5 in all major muscle groups. Complains of lumbar back pain that radiates into her lower portion of her back into her hips down her legs following the L4-L5 dermatomal distribution; right greater toe pain as well today, shooting pain, she describes. IMPRESSION: 1. History of cervical fusion with radicular pain. 2. Chronic lumbar pain. 3. Recent ingrown toenail, removed with continuation of pain. 4. Complex medical management under terms of written opioid agreement. We reviewed the fact that opiate medications are being used to provide analgesia adequate to support activities of daily living, not attempting to achieve a specific pain score on the 0-10 Visual Analog Scale. The current opiate medications are providing sufficient analgesia to allow the patient to participate in activities of daily living. The patient is not exhibiting any aberrant behavior suggestive of drug diversion. The patient is not having any adverse reactions to medications. The patient is not suffering from daytime somnolence or mental acuity changes. The patient is managing opiate-induced constipation with appropriate [id number] agents and dietary considerations. The patient was counseled on concern for caution with operating a motor vehicle while using opiate medications. A physical exam was performed and the patient's functional status was evaluated. All patients with back pain were advised against the bed rest greater than 4 days and were advised to return to normal activities. Pain score assessment was noted and the treatment plan was reviewed with the patient. All current medications, both prescribed and OTC were reviewed and reconciled on the electronic medical record. Tobacco screening was accomplished and smoking cessation was advised when indicated. BMI was noted and diet/exercise modification was recommended for all patients following outside normal parameters. I reviewed with the patient today their responsibilities to safeguard prescription medications, reviewed their responsibility to utilize medications only as prescribed by the physician. They are to seek and receive pain [address] [address] PAIN MANAGEMENT CONSULTATION Name: VARUN ALAS Room #: REG [facility].#: [id number] Admission: 11/17/18 ������������������ Attend Phys: Fina GUAJARDO Cassius Discharge: ������������������ Date of : 59 Report #: [id number] medications only from 1 physician group ( [facility]). They are to use 1 pharmacy and keep the clinic informed if they change pharmacies. Their responsibilities include making followup visits in a timely fashion and to avoid abrupt discontinuation of medication usage. Their responsibilities further include bringing their medications (bottles from the pharmacy with residual pills) to the visit for possible confirmation of pill counts and the patient understands it is their responsibility to submit to random drug screens to ensure both that the medications prescribed are present, and that no other controlled substances are present. All prescriptions provided today were generated electronically. PLAN: 1. We discussed treatment options with the patient today. I informed the patient that we need to decrease her medications again. It has been almost a year since we had decreased her OxyContin. She has a very high dose. She has done very well with our tapering, but she was at an extremely high dose before all of her tapering over the past couple of years. Currently, she has been on the OxyContin 20 at bedtime and 30 in the morning for almost a year. It is time for us to decrease to 20 mg b.i.d. I informed her that we will do this at the next visit, so she has time to mentally prepare for this decrease. The patient verbalizes understanding. When we decrease her, she will still be at a high morphine mEq of 120 per day. I did explain this to the patient again. 2. Scripts given today for OxyContin 20 mg #30, OxyContin 30 mg #30 and oxycodone 10/325 #120. 3. The patient will have an appointment with Dr. Jim Nathan next month and at that time, we will decrease her. He did see her in collaboration today as well. ��������������������������������������������� <ELECTRONICALLY SIGNED> ���������������������������������������� By: Fina Hammonds ��������������������������������������������� 11/20/18 1439 [id number] Fina Hammonds /selena
== END ==
LOC: PAIN 06:48
DX: M43.22 Fusion of spine, cervical region (principal); M54.5 Low back pain; Z88.8 Allergy status to other drugs, medicaments and biological substances; Z79.899 Other long term (current) drug therapy; Z79.891 Long term (current) use of opiate analgesic

== ENCOUNTER → 2018-12-15 | Outpatient (CLI) | payer OTHER ==
[~2018-12-15] VITALS: Ht 157.5 cm; Wt 95.7 kg
[~2018-12-15] MED LIST changes: +LIDOCAINE35.44 GM TOP; +PROMETHAZI6.25 MG/5 PO; +PROTONIX40 M1 PO
[2018-12-15 10:55] VITALS: BP 116/57
--- NOTE | 2018-12-15 10:55 | NUR ---
Pain Clinic Assessment: 1. History of Osteoarthritis: ALL OVER History of Rheumatoid Arthritis: NO 2. Height: 5 ft. 2 in. 157.5 cm. Weight: 211.0 lb. oz. 95.709 kg. Patient's BMI: 38.6 3. Vital Signs: BP: 116/57 Pulse: 66 Resp: 18 Temp: 02 Sat: 100 ECG Mon: 4. Pain Intensity: 9 5. Fall Risk: Dizziness: N Needs help standing or walking: N Fallen in the last 3 months: N Fall risk comments: 6. Patient on Blood Thinner: None 7. History of Hypertension: Y 8. Opioid Therapy greater than 6 weeks: Y Opiate Contract Signed: 10/24/15 9. Risk Assessment Tool Provided: low risk-1 10. Functional Assessment Tool: 11. Recreational Drug Use: Never Drug Type: Tobacco Use: Never Smoker Tobacco Type: Amount or Packs/day: How Many Years: Alcohol Use: No Frequency: Quant:
--- NOTE | 2018-12-27 09:44 | HPC ---
[facility] [address] [address] PAIN MANAGEMENT CONSULTATION Name: VARUN ALAS Room #: REG [facility] MJessica.#: [id number] Admission: 12/15/18 Attend Phys: Scooby Nathan MD Discharge: Date of : 59 Report #: [id number] THIS REPORT FOR: //name// CC: Scooby RICHARDS DATE OF SERVICE: 12/15/2018 CHIEF COMPLAINT: Here for medication renewal. HISTORY: The patient is a 63-year-old female who has been followed in the pain clinic for quite a number of years. As you may recall, she has chronic pain involving her neck. She has had surgery and fusion of the vertebrae in the neck. She continues to have pain and discomfort in the lower portion of her back. She has pain radiating down into her left foot. She has had some pain and discomfort involving her right ankle. Has noticed that the weather has changed and has noted an increase in pain and discomfort. Rates her pain as a 9.5/10. Notes that pain is worse with activities of daily living such as moving, walking, and weather changes. Describes it as a constant, aching, stabbing, and intermittent pain in her muscles, back, and low back area. Has some pain and discomfort in the right shoulder. Denies any trauma, but notes that there is soreness to palpation in this area with her finger near the biceps tendon. ALLERGIES: CODEINE. CURRENT MEDICATIONS: Tizanidine 4 mg t.i.d., Lyrica 100 mg t.i.d., oxycodone 10/325, OxyContin total of 50 mg daily, Singulair 10 mg at bedtime, Advair, Zantac, aspirin, Motrin, Lasix, Bentyl, potassium, and Zestril. PAIN CLINIC ASSESSMENT AND PQRS: 1. The patient has some arthritic changes in her knees bilateral, back and neck. She is not being treated for rheumatoid arthritis. 2. Height 5 feet 2 inches, weight 211 pounds, BMI is 38.6. 3. Vital signs: Blood pressure 116/75, pulse 66, respiratory rate 18, room air saturation is 100. 4. Pain intensity 9.5/10. 5. Fall history: The patient has not fallen in the last 3 months. 6. Blood thinner. The patient is not on a blood thinning medication. 7. Hypertension. The patient is being treated for hypertension. 8. Opioids greater than 6 weeks. The patient received medication from one source, the pain clinic. 9. Risk assessment tool, moderate for opioid use. 10. Functional assessment tool 51/70. 11. Recreational drugs. The patient denies use of recreational drugs. 12. Tobacco: The patient has never smoked. [address] [address] PAIN MANAGEMENT CONSULTATION Name: VARUN ALAS Room #: REG CLI [facility].#: [id number] Admission: 12/15/18 Attend Phys: Scooby Nathan MD Discharge: Date of : 59 Report #: [id number] 13. Alcohol. The patient denies frequent use of alcoholic beverages. PHYSICAL EXAMINATION: GENERAL: The patient is a well-developed, well-nourished black female, appears her stated age. She is alert and oriented x 3. Her affect is appropriate. Speech is fluent. HEENT: Normocephalic, atraumatic. Extraocular eye muscles intact. The patient has some limitation of movement in her neck. The patient has pain and discomfort in the right shoulder. Palpation over the right biceps tendon and near the shoulder causes some increased pain and discomfort in her arm. HEART: Regular rate. ABDOMEN: Nontender. Bowel sounds present. MUSCULOSKELETAL: Lower extremity, the patient has pain and discomfort in lower portion of her back as well as pain radiating down into her legs. Complains of some knee pain. Complains of ankle pain. Complains of some pain and discomfort in her toe, where she has had surgery. IMPRESSION: 1. Cervical fusion with cervical radicular pain. 2. Chronic low back and lumbar pain. 3. Recent toenail problem with continued pain. 4. Complex medical management using opioid medications. RECOMMENDATIONS: We discussed treatment options with the patient. Risks and benefits of opioid medications were discussed. We have discussed with the patient earlier the need to approach the guidelines set forth by the CDC. At this point, we will decrease the patient's OxyContin by 10 mg daily. She will take 20 mg b.i.d. We will continue with oxycodone 10 mg 1 p.o. total of 120 tablets per month. She will take one tablet p.o. q.4-6 hours p.r.n. She will call us if she has any concerns with her medications. We explained to the patient the need to decrease her medications. She is aware that over time one can develop tolerance and less effectiveness of opioid medications. We would like to thank you for letting us participate in her care. We hope she continues to improve. <ELECTRONICALLY SIGNED> By: Scooby Nathan MD 12/27/18 [id number] [id number] Scooby Nathan MD /nt
== END ==
LOC: PAIN 06:39 → RAD 06:39 → PAIN 09:53
DX: Z12.31 Encounter for screening mammogram for malignant neoplasm of breast (principal); M54.5 Low back pain; M54.12 Radiculopathy, cervical region; M43.22 Fusion of spine, cervical region; Z88.8 Allergy status to other drugs, medicaments and biological substances; Z79.899 Other long term (current) drug therapy

== ENCOUNTER → 2019-01-12 | Outpatient (CLI) | payer OTHER ==
[~2019-01-12] VITALS: Ht 157.5 cm; Wt 94.8 kg
[2019-01-12 11:40] VITALS: BP 144/78
--- NOTE | 2019-01-12 11:46 | NUR ---
Pain Clinic Assessment: 1. History of Osteoarthritis: ALL OVER History of Rheumatoid Arthritis: NO 2. Height: 5 ft. 2 in. 157.5 cm. Weight: 209.0 lb. oz. 94.802 kg. Patient's BMI: 38.2 3. Vital Signs: BP: 144/78 Pulse: 76 Resp: 16 Temp: 02 Sat: 98 ECG Mon: 4. Pain Intensity: 9 5. Fall Risk: Dizziness: N Needs help standing or walking: N Fallen in the last 3 months: N Fall risk comments: 6. Patient on Blood Thinner: None 7. History of Hypertension: Y 8. Opioid Therapy greater than 6 weeks: Y Opiate Contract Signed: 10/24/15 9. Risk Assessment Tool Provided: low risk-1 10. Functional Assessment Tool: 11. Recreational Drug Use: Never Drug Type: Tobacco Use: Never Smoker Tobacco Type: Amount or Packs/day: How Many Years: Alcohol Use: No Frequency: Quant:
--- NOTE | 2019-01-30 09:25 | HPC ---
[facility] [address] [address] PAIN MANAGEMENT CONSULTATION Name: VARUN ALAS Room #: REG [facility] [place].#: [id number] Admission: 01/12/19 Attend Phys: Scooby Nathan MD Discharge: Date of : 59 Report #: [id number] THIS REPORT FOR: //name// CC: Scooby RICHARDS DATE OF SERVICE: 01/12/2019 HISTORY: The patient is a 63-year-old female who has been followed in the pain clinic. She has had pain for years. It is chronic in nature. She has had neck surgery with fusion and instrumentation in her neck. Also, has pain in the lower portion of her back. She has rated her pain today as 9/10. It involves the lower portion of her back. Has neck pain. Has right knee, right hip, left hip and right foot pain and discomfort. Describes them as constant, aching and stabbing pains. States that she is taking her medications as prescribed. Keeps her medications in a guarded area. She has returned today for renewal of her medications. ALLERGIES: CODEINE. CURRENT MEDICATIONS: Tizanidine 4 mg t.i.d., Lyrica 100 mg t.i.d., oxycodone 10/325, OxyContin total of 50 mg daily, Singulair 100 mg at bedtime, Advair, Zantac, aspirin, Motrin, Lasix, Benadryl, Bentyl, potassium, Zestril. PAIN CLINIC ASSESSMENT AND PQRS: 1. The patient has some arthritic changes in her knees bilaterally. Has some pain in her back. She is not being treated for rheumatoid arthritis. Has some arthritic changes in her neck. 2. Height 5 feet 2 inches, weight 209 pounds, BMI is 38.2. 3. Vital Signs: Blood pressure is 124/78, heart rate 76, respiratory rate 16, room air saturation 98%. 4. Pain intensity /10. 5. Fall history: The patient has not fallen in the last 3 months. 6. Blood thinner. The patient is not on a blood thinning medication. 7. Hypertension. The patient is being treated for hypertension. 8. Opioids greater than 6 weeks. The patient received medication from one source the pain clinic. 9. Risk assessment tool, low for opioid use. 10. Functional assessment tool was 51/70. 11. Recreational drug use: The patient denies. 12. Tobacco: The patient has never smoked. 13. Alcohol. The patient denies use of alcoholic beverages. PHYSICAL EXAMINATION: GENERAL: The patient is a well-developed, well-nourished black female, appears her stated age. She is alert and oriented x 3. Her affect is appropriate. [address] [address] PAIN MANAGEMENT CONSULTATION Name: VARUN ALAS Room #: REG CL [facility]#: [id number] Admission: 01/12/19 Attend Phys: Scooby Nathan MD Discharge: Date of : 59 Report #: [id number] Speech is fluent. HEENT: Normocephalic, atraumatic. Extraocular eye muscles intact. Sclerae nonicteric. Mucous membranes are moist. The patient complains of pain in her neck, pain in her right shoulder. Had pain in the area of the tendons of her biceps bilaterally. HEART: Regular rate. ABDOMEN: Nontender. Bowel sounds present. MUSCULOSKELETAL: The patient without significant scoliosis, kyphosis or lordosis. Complains of pain in her knees. Complains of pain in her ankle. Has right foot pain, which is chronic. IMPRESSION: 1. Cervical fusion with cervical radicular pain. 2. Chronic low back pain and lumbar pain. 3. Foot pain after toenail removal. 4. Complex medical management using opioid medications. RECOMMENDATIONS: We discussed treatment options with the patient. Again, over the years, we had a long talk with the patient with problems with opioids. They can become less effective as time goes on. We have been decreasing the patient's medications to come within the guidelines of the CDC. She feels that this cause some increased pain and discomfort. Overall, she is doing reasonably well. She is not having any signs of withdrawal. She has taken the medication as prescribed. She is aware that opioid medications with some patients can become problematic and they can develop problems with dependency and addiction. She has not shown any signs of addiction. She has taken the medication as prescribed. A renewal of her medications have been provided. She will continue with pregabalin 100 mg t.i.d. and tizanidine 4 mg as needed. She also to continue with the oxycodone 10 mg one p.o. q. 6 hours p.r.n. The patient also will continue with OxyContin 20 mg one p.o. b.i.d. We would like to thank you for letting us participate in her care. We hope she continues to improve. <ELECTRONICALLY SIGNED> By: Scooby Nathan MD 01/30/19 0925 1425 0015 Scooby Nathan MD /[facility]
== END ==
LOC: PAIN 06:53
DX: M54.5 Low back pain (principal); G89.29 Other chronic pain; M43.22 Fusion of spine, cervical region

== ENCOUNTER → 2019-02-09 | Outpatient (CLI) | payer OTHER ==
[~2019-02-09] VITALS: Ht 157.5 cm; Wt 93.9 kg
[2019-02-09 09:58] VITALS: BP 144/81
--- NOTE | 2019-02-09 10:04 | NUR ---
Pain Clinic Assessment: 1. History of Osteoarthritis: ALL OVER History of Rheumatoid Arthritis: NO 2. Height: 5 ft. 2 in. 157.5 cm. Weight: 207.0 lb. oz. 93.895 kg. Patient's BMI: 37.9 3. Vital Signs: BP: 144/81 Pulse: 81 Resp: 16 Temp: 02 Sat: 100 ECG Mon: 4. Pain Intensity: 9 5. Fall Risk: Dizziness: N Needs help standing or walking: N Fallen in the last 3 months: N Fall risk comments: 6. Patient on Blood Thinner: None 7. History of Hypertension: Y 8. Opioid Therapy greater than 6 weeks: Y Opiate Contract Signed: 10/24/15 9. Risk Assessment Tool Provided: low risk-1 10. Functional Assessment Tool: 11. Recreational Drug Use: Never Drug Type: Tobacco Use: Never Smoker Tobacco Type: Amount or Packs/day: How Many Years: Alcohol Use: No Frequency: Quant:
--- NOTE | 2019-02-12 12:24 | HPC ---
[facility] [address] [address] PAIN MANAGEMENT CONSULTATION Name: VARUN ALAS Room #: REG [facility]..#: [id number] Admission: 02/09/19 Attend Phys: Fina Hammonds Discharge: Date of : 59 Report #: [id number] THIS REPORT FOR: //name// CC: Fina Hammonds DAPHNE RICHARDS DATE OF SERVICE: 02/09/2019 CHIEF COMPLAINT: Chronic pain in her neck and lumbar spine. HISTORY OF PRESENT ILLNESS: This is a very pleasant 63-year-old female returning to the pain clinic to refill her medications that she takes for her chronic ongoing neck pain from previous fusions as well as ongoing low back pain. She reports her pain score of 9/10 today. She also continues to have right foot pain as a result of an ingrown toenail. She feels that it is a throbbing pain as well. She reports increase in pain with walking and movement and weather changes. She feels that the medications are beneficial, though not at the same level that she had had when she was on higher levels of opioids, but understands that we are not able to keep her at that higher strength of opioids as we had in the past. The patient would like refills of her OxyContin and oxycodone today. ALLERGIES: No known drug allergies. CURRENT LIST OF MEDICATIONS: Amitriptyline, tizanidine, Lyrica, Oxycodone 10/325 q.i.d., OxyContin 20 mg b.i.d., Protonix, Singulair, Advair, aspirin, ibuprofen, Lasix, ProAir, Bentyl, potassium, and Zestril. PQRS: 1. She has diffuse osteoarthritic changes in her knees and back. She is not being treated for rheumatoid arthritis. 2. Height is 5 feet 2 inches, weight is 207 and BMI is 37. 3. Vital signs 144/81, pulse is 81, respirations 16, oxygen sat is 100. 4. Pain score is 9/10. 5. Denies dizziness, does not need help walking or standing, has not fallen in the last 3 months. 6. The patient is not on any blood thinners, but does take medicine for hypertension. 7. Opiate therapy is greater than 6 weeks; therefore, an opiate signed contract is on the chart. Risk assessment tool is low. Functional assessment is 37/70. 8. Recreational drug use, she denies. She is not a smoker and does not drink alcohol. According to the prescription monitoring system, the patient is filling appropriately for her medications. She is due to fill those today. There is no aberrant fills according to the CDC guidelines, her morphine mEq per day is 120. [address] [address] PAIN MANAGEMENT CONSULTATION Name: VARUN ALAS Room #: REG [facility] ..#: [id number] Admission: 02/09/19 Attend Phys: Fina Hammonds Discharge: Date of : 59 Report #: [id number] She is followed closely on a monthly basis. There is a recent drug screen on the chart that is appropriate as well. PHYSICAL EXAMINATION: GENERAL: This is alert and orientated, well-nourished black female who is obese, rating her pain score at 9/10 today. Her affect is appropriate. HEENT: Normocephalic, atraumatic. Extraocular eye muscles are intact. Mucous membranes are moist. NECK: Complains of pain in movement of her neck with some limitation in movement as well. Pain radiates into her right shoulder. MUSCULOSKELETAL: Lower extremity strength is 5/5 in all major muscle groups. The patient does have pain that radiates down from her lumbar spine down her bilateral legs. Tenderness in her right foot from recent extraction of a toenail, also has some bilateral knee tenderness. IMPRESSION: 1. Cervical fusion with cervical radicular pain. 2. Chronic low back pain. 3. Recent toenail removal with continuation of pain. 4. Complex medical management under terms of written opioid agreement. We reviewed the fact that opiate medications are being used to provide analgesia adequate to support activities of daily living, not attempting to achieve a specific pain score on the 0-10 Visual Analog Scale. The current opiate medications are providing sufficient analgesia to allow the patient to participate in activities of daily living. The patient is not exhibiting any aberrant behavior suggestive of drug diversion. The patient is not having any adverse reactions to medications. The patient is not suffering from daytime somnolence or mental acuity changes. The patient is managing opiate-induced constipation with appropriate apqu-yrd-[id number] agents and dietary considerations. The patient was counseled on concern for caution with operating a motor vehicle while using opiate medications. A physical exam was performed and the patient's functional status was evaluated. All patients with back pain were advised against the bed rest greater than 4 days and were advised to return to normal activities. Pain score assessment was noted and the treatment plan was reviewed with the patient. All current medications, both prescribed and OTC were reviewed and reconciled on the electronic medical record. Tobacco screening was accomplished and smoking cessation was advised when indicated. BMI was noted and diet/exercise modification was recommended for all patients following outside normal parameters. I reviewed with the patient today their responsibilities to safeguard prescription medications, reviewed their responsibility to utilize medications only as prescribed by the physician. They are to seek and receive pain [facility] [place] [address] [place] [address] PAIN MANAGEMENT CONSULTATION Name: VARUN ALAS Room #: REG CL M.R.#: [id number] Admission: 02/09/19 Attend Phys: Fnia CASANDRA Hammonds Discharge: Date of : 59 Report #: [id number] medications only from 1 physician group ( [facility]). They are to use 1 pharmacy and keep the clinic informed if they change pharmacies. Their responsibilities include making followup visits in a timely fashion and to avoid abrupt discontinuation of medication usage. Their responsibilities further include bringing their medications (bottles from the pharmacy with residual pills) to the visit for possible confirmation of pill counts and the patient understands it is their responsibility to submit to random drug screens to ensure both that the medications prescribed are present, and that no other controlled substances are present. All prescriptions provided today were generated electronically. PLAN: 1. We discussed treatment options with the patient today. The patient continues to use her medications and reports they were not as effective as they were when she was at a higher level, that explains to me that she is able to still be active in her house and does not feel as overmedicated as she had in the past and less problems of constipation. We will continue her on her OxyContin 20 mg b.i.d. #60 and oxycodone 10/325, #120. Scripts given to the patient today. Again, the morphine mEq is 120; therefore, she is seen every month. 2. The patient states the trial of amitriptyline did help her sleep slightly longer but felt "hungover". She is also trying to take melatonin to aid in her insomnia. I explained to the patient the hungover "feeling that she experiences will hopefully subside the longer she is on the amitriptyline." The patient verbalizes understanding and will continue this medication. No need for scripts for her Lyrica or her tizanidine today. 3. The patient is seen by Dr. Jim Nathan. The patient will return in 1 month. Appointment made. <ELECTRONICALLY SIGNED> By: Fina Hammonds 02/12/19 1224 [id number] Fina Hammonds /selena
== END ==
LOC: PAIN 06:52
DX: M54.12 Radiculopathy, cervical region (principal); M54.5 Low back pain; Z79.899 Other long term (current) drug therapy

== ENCOUNTER → 2019-03-09 | Outpatient (CLI) | payer OTHER ==
[~2019-03-09] VITALS: Ht 157.5 cm; Wt 98.0 kg
[~2019-03-09] MED LIST changes: +NARCAN4 MG NARES
--- NOTE | ~2019-03-09 | HPC ---
[facility] [place] [address] [place] [address] PAIN MANAGEMENT CONSULTATION Name: VARUN ALAS Room #: REG [facility].#: [id number] Admission: 03/09/19 Attend Phys: Scooby Nathan MD Discharge: Date of : 59 Report #: [id number] THIS REPORT FOR: //name// CC: Scooby RICHARDS DATE OF SERVICE: 03/09/2019 CHIEF COMPLAINT: Back and leg pain. HISTORY: The patient is a 64-year-old female who has been followed in the pain clinic because of chronic pain. She is having pain, which is quite problematic in the lower portion of her back. She has pain that radiates down into her legs. She has returned today with the hopes of undergoing an epidural steroid injection to help quell and decrease the pain that she is experiencing. She rates her pain as a 9-10 in the low back area. She has pain that radiates in the posterior portion of her leg down into the posterior calf area and down into her foot. ALLERGIES: No known drug allergies. CURRENT MEDICATIONS: Amitriptyline, tizanidine, Lyrica, oxycodone 10/325 one p.o. q.i.d., OxyContin 20 mg b.i.d., Protonix, Singulair, Advil, aspirin, ibuprofen, Lasix, ProAir, Bentyl, potassium, and Zestril. PAIN CLINIC ASSESSMENT AND PQRS: 1. The patient has osteoarthritic changes in her neck, back, right shoulder, knees and feet. She is not being treated for rheumatoid arthritis. 2. Height 5 feet 2 inches, weight 216 pounds, BMI is 39.5. 3. Vital Signs: Blood pressure 112/71, pulse 70, respiratory rate is 15, and room air saturation is 98%. 4. Pain intensity 9/10. 5. Fall history: The patient has not fallen in the last 3 months. 6. Blood thinner. The patient is not on a blood thinning medication. 7. Hypertension. The patient is being treated for hypertension. 8. Opioids greater than 6 weeks. The patient received medication from one source, the pain clinic. 9. Risk assessment tool, low for opioid use. 10. Functional assessment tool, . 11. Recreational drug use: The patient denies. 12. Tobacco: The patient has never smoked. 13. Alcohol. The patient denies use of alcoholic beverages. PHYSICAL EXAMINATION: GENERAL: The patient is a well-developed, well-nourished black female, appears her stated age. She is alert and oriented x 3[place] [address] PAIN MANAGEMENT CONSULTATION Name: BISHOPVARUN HIDALGO Room #: REG [facility]z#: [id number] Admission: 03/09/19 Attend Phys: Scooby Nathan MD Discharge: Date of : 59 Report #: [id number] Speech is fluent. HEENT: Normocephalic, atraumatic. Extraocular eye muscles intact. Sclerae nonicteric. Mucous membranes are moist. NECK: Without adenopathy, decreased range of motion. The patient has some pain in her shoulder joints and down into her arms. HEART: Regular rate. ABDOMEN: Nontender. MUSCULOSKELETAL: A 5-/5 for the major muscle groups in the upper extremity and 5-/5 for the major muscle groups in the lower extremity. Complains of pain and discomfort in the L5-S1 dermatomal distribution radiating down into her legs. IMPRESSION: 1. History of lumbar radiculopathy in the lumbar area. 2. Cervical fusion with cervical radicular pain. 3. Chronic low back pain. 4. Complex medical management, treated with opioid medications. RECOMMENDATIONS: We discussed treatment options with the patient. The patient is aware that opioid medications can become less effective as time goes on secondary to development of tolerance. She feels her medications are helpful. She has returned today. She is having more pain in the low back area. Pain radiates down in the posterior portion of her legs. In the past, she has had an epidural steroid injection and gleaned benefit from that. She has returned today with hopes of undergoing an epidural steroid injection in the lower back area. We will proceed with an epidural steroid injection in the L5-S1 area to help quell her pain. PROCEDURE NOTE: The patient was taken to the procedure area. She was then assisted in getting on the examination table. Her back was sterilely prepped with a Betadine solution. A 0.25% bupivacaine was infiltrated in the L5-S1 area. Fluoroscopy using anterior, posterior as well as lateral viewing were implemented. A 25-gauge needle was then used to anesthetize the area. After this area had been anesthetized with 0.25% bupivacaine a 17-gauge Tuohy with loss of resistance technique was used to gain access to the epidural space. There was no CSF, heme or paresthesia. Total of 80 mg Depo-Medrol, 40 mg triamcinolone and 2 mL of 0.25% bupivacaine was injected. The patient had good response with no weakness. Pain score was 8/10 at the time of discharge. She will follow up in the future as needed. We would like to thank you for letting us participate in her care. We hope she continues to improve. By: [phone] Scooby Nathan MD /selena
[2019-03-09 11:05] VITALS: BP 112/71
--- NOTE | 2019-03-09 11:08 | NUR ---
Pain Clinic Assessment: 1. History of Osteoarthritis: NECK BACK RT SHOULDER KNEES FEET History of Rheumatoid Arthritis: NO 2. Height: 5 ft. 2 in. 157.5 cm. Weight: 216.0 lb. oz. 97.977 kg. Patient's BMI: 39.5 3. Vital Signs: BP: 112/71 Pulse: 70 Resp: 15 Temp: 02 Sat: 98 ECG Mon: 4. Pain Intensity: 9-10 5. Fall Risk: Dizziness: N Needs help standing or walking: N Fallen in the last 3 months: N Fall risk comments: 6. Patient on Blood Thinner: None 7. History of Hypertension: Y 8. Opioid Therapy greater than 6 weeks: Y Opiate Contract Signed: 10/24/15 9. Risk Assessment Tool Provided: low risk-1 10. Functional Assessment Tool: 11. Recreational Drug Use: Never Drug Type: Tobacco Use: Never Smoker Tobacco Type: Amount or Packs/day: How Many Years: Alcohol Use: No Frequency: Quant:
== END | disposition home or self-care (01) ==
LOC: PAIN 06:53
DX: M54.16 Radiculopathy, lumbar region (principal); G89.29 Other chronic pain; M54.12 Radiculopathy, cervical region; I10 Essential (primary) hypertension; Z79.899 Other long term (current) drug therapy; M19.90 Unspecified osteoarthritis, unspecified site; Z79.82 Long term (current) use of aspirin; Z79.891 Long term (current) use of opiate analgesic

== ENCOUNTER 2019-03-20 15:05 | Emergency (ER) | payer OTHER ==
[~2019-03-20] VITALS: Ht 157.5 cm; Wt 88.9 kg
[2019-03-20 15:50] LABS: HEMATOCRIT 38.8 % (37.0-47.0); HEMOGLOBIN 12.9 gm/dL (12.0-15.0); MCH 30.1 pg (26.0-34.0); MCHC 33.3 g/dL (28.0-37.0); MCV 90.6 fL (80.0-100.0); RBC 4.29 mil/uL (4.20-5.00); RDW 15.1 % (10.5-14.5); WBC 7.1 thou/uL (4.0-11.0)
[2019-03-20 15:59] LABS: CALCIUM 9.8 mg/dL (8.5-10.1); CREATININE 1.2 mg/dL (0.6-1.0); POTASSIUM 4.4 mmol/L (3.5-5.1)
[2019-03-20 16:05] LABS: ALBUMIN 3.8 g/dL (3.4-5.0); MAGNESIUM 2.2 mg/dL (1.8-2.4); TOTAL BILIRUBIN 0.2 mg/dL (<0.1-1.0); TOTAL PROTEIN 8.3 g/dL (6.4-8.2)
[2019-03-20 17:30] VITALS: BP 132/71
== END 2019-03-20 17:30 | disposition home or self-care (01) ==
LOC: ER 15:05
PROVIDERS: Physician Assistant
DX: M62.830 Muscle spasm of back (principal); I10 Essential (primary) hypertension; M79.662 Pain in left lower leg; M79.661 Pain in right lower leg; K21.9 Gastro-esophageal reflux disease without esophagitis; J45.909 Unspecified asthma, uncomplicated

== ENCOUNTER → 2019-04-06 | Outpatient (CLI) | payer OTHER ==
[~2019-04-06] VITALS: Ht 157.5 cm; Wt 93.0 kg
[2019-04-06 10:08] VITALS: BP 118/77
--- NOTE | 2019-04-06 10:19 | NUR ---
Pain Clinic Assessment: 1. History of Osteoarthritis: NECK BACK RT SHOULDER KNEES FEET History of Rheumatoid Arthritis: NO 2. Height: 5 ft. 2 in. 157.5 cm. Weight: 205.0 lb. oz. 92.988 kg. Patient's BMI: 37.5 3. Vital Signs: BP: 118/77 Pulse: 87 Resp: 18 Temp: 02 Sat: 99 ECG Mon: 4. Pain Intensity: 9 5. Fall Risk: Dizziness: N Needs help standing or walking: N Fallen in the last 3 months: N Fall risk comments: 6. Patient on Blood Thinner: None 7. History of Hypertension: Y 8. Opioid Therapy greater than 6 weeks: Y Opiate Contract Signed: 10/24/15 9. Risk Assessment Tool Provided: low risk-1 10. Functional Assessment Tool: 11. Recreational Drug Use: Never Drug Type: Tobacco Use: Never Smoker Tobacco Type: Amount or Packs/day: How Many Years: Alcohol Use: No Frequency: Quant:
--- NOTE | 2019-04-09 16:06 | HPC ---
[facility] [place] [address] PAIN MANAGEMENT CONSULTATION Name: VARUN ALAS Room #: REG [facility].#: [id number] Admission: 04/06/19 Attend Phys: Fina Hammonds Discharge: Date of : 59 Report #: [id number] THIS REPORT FOR: cc: DAPHNE RICHARDS MD, RACHEL MD Hocker, Fina GUAJARDO ~ THIS REPORT FOR: //name// DATE OF SERVICE: 04/06/2019 CHIEF COMPLAINT: Chronic back pain and leg pain as well as cervical radiculopathy. HISTORY OF PRESENT ILLNESS: This is a pleasant 64-year-old female who returns to the pain clinic today for refills of her medication that she takes for her ongoing chronic pain issues. She has pain in her cervical spine as well as her lumbar spine and her bilateral legs. Today, she is reporting a pain score of 9/10 stating that she is having increased muscle spasms, that she did seek medical attention at the Emergency Room for. She reports that pain has subsided slightly, but continues to have them, that are not relieved with her tizanidine. Her pain score today is 9/10, worse with movement and walking and changes in the weather. She feels that her medications are usually beneficial in controlling her pain except for this recent flare. She does report that the lumbar steroid injection that Dr. Nathan gave her in early March was not beneficial in helping her leg pain. The patient reports that she has been having some other health issues. She has recently seen a security police and had an echocardiogram performed. They have told her that she has some regurgitation, needing more follow up regarding that diagnosis. The patient is unsure which valve she has been having issues with. She is also having a colonoscopy and an EGD that is scheduled for later this month. She does not complain of ongoing constipation or GERD issues to me. Today, she would like refills of her medication. ALLERGIES: No known drug allergies. CURRENT LIST OF MEDICATIONS: Tizanidine 4 mg t.i.d. p.r.n., Lyrica 100 mg t.i.d., oxycodone 10/325 p.r.n., OxyContin 20 mg b.i.d., amitriptyline, Protonix, Singulair, Advair, aspirin, Lasix, Bentyl, potassium, and Zestril. PQRS: 1. The patient has a history of osteoarthritis in her neck, back, shoulders and knees. Denies any rheumatoid arthritis. 2. Height is 5 feet 2 inches, weight is 205, BMI is 37. 3. Vital Signs: 118/77, pulse is 87, respirations 18, oxygen sat is 99. [address] [address] PAIN MANAGEMENT CONSULTATION Name: VARUN ALAS [id number] Admission: 04/06/19 Attend Phys: Fina Hammonds Discharge: Date of : 59 Report #: [id number] 4. Pain score is 9/10. 5. Denies dizziness, does not need help walking or standing, has not fallen in the last 3 months. 6. The patient is not on any blood thinners, but does take medicine for hypertension. 7. The patient's opioid therapy is greater than 6 weeks; therefore, an opioid signed contract is on the chart. Her risk assessment tool is low. Functional assessment is 37/70. 8. Recreational drug use, she denies. She is not a smoker and does not drink alcohol. According to the prescription monitoring system, the patient is filling appropriately for her medications. She is due to fill those again today. PHYSICAL EXAMINATION: GENERAL: This is a well-developed, well-nourished black female who appears her stated age, placing her current pain score at 9/10 today. Her affect is appropriate. HEENT: Normocephalic, atraumatic. Extraocular eye muscles are intact. Mucous membranes are moist. NECK: Without adenopathy or JVD. EXTREMITIES: The patient has pain in her shoulders and arms that increases with range of motion. MUSCULOSKELETAL: The patient has pain in her lower back that radiates down the L5-S1 dermatomal distribution into her bilateral legs. Complains of cramping in her calves. Her lower extremity strength judged to be 5/5. IMPRESSION: 1. History of lumbar radiculopathy. 2. Cervical fusion with cervical radicular pain. 3. Chronic low back pain. 4. Complex medical management under terms of written opioid agreement. 5. Muscle spasms. PLAN: 1. We discussed treatment options with the patient today. I did explain to her that sometimes after lumbar epidural steroid injections, the patient do have increase in muscle spasms as part of the process. The patient did not remember this from previous injections. She says that they have been slowly subsiding. I also encouraged her to drink tonic water and where to find in the grocery store. The patient verbalizes that she will stop her on the way home. 2. The patient has been having some cardiac issues, recently had an echocardiogram that showed some regurgitation in a valve. She is unsure which one, but she will see a cardiac doctor before she returns for her next appointment. She will follow up with us at that time. 3. We will refill her OxyContin 20 mg, #60 and Percocet 10/325, #120. These [facility] [address] [place] [address] PAIN MANAGEMENT CONSULTATION Name: VARUN ALAS Room #: REG CL [facility].#: [id number] Admission: 04/06/19 Attend Phys: Fina Hammonds Discharge: Date of : 59 Report #: [id number] will be written by Dr. Jim Nathan. The patient to fill those locally. 4. We will refill her tizanidine and amitriptyline and send those to [facility] for 1 year supply. 5. The patient will be seen in 1 month. The patient is seen in collaboration with Dr. Jim Nathan today. <ELECTRONICALLY SIGNED> By: Fina Hammonds 04/09/19 1606 [id number] Fina Hammonds /nt
== END ==
LOC: PAIN 06:47
DX: M54.12 Radiculopathy, cervical region (principal); M54.5 Low back pain; G89.29 Other chronic pain; Z79.1 Long term (current) use of non-steroidal anti-inflammatories (NSAID); Z79.82 Long term (current) use of aspirin; Z79.891 Long term (current) use of opiate analgesic; Z98.1 Arthrodesis status

== ENCOUNTER → 2019-05-04 | Outpatient (CLI) | payer OTHER ==
[~2019-05-04] VITALS: Ht 157.5 cm; Wt 94.0 kg
[2019-05-04 09:25] VITALS: BP 14/69
--- NOTE | 2019-05-04 09:31 | NUR ---
Pain Clinic Assessment: 1. History of Osteoarthritis: NECK BACK SHOULDERS KNEES FEET History of Rheumatoid Arthritis: NO 2. Height: 5 ft. 2 in. 157.5 cm. Weight: 207.2 lb. oz. 93.985 kg. Patient's BMI: 37.9 3. Vital Signs: BP: 14/69 Pulse: 74 Resp: 18 Temp: 02 Sat: 99 ECG Mon: 4. Pain Intensity: 8 5. Fall Risk: Dizziness: N Needs help standing or walking: N Fallen in the last 3 months: N Fall risk comments: 6. Patient on Blood Thinner: None 7. History of Hypertension: Y 8. Opioid Therapy greater than 6 weeks: Y Opiate Contract Signed: 10/24/15 9. Risk Assessment Tool Provided: low risk-1 10. Functional Assessment Tool: 11. Recreational Drug Use: Never Drug Type: Tobacco Use: Never Smoker Tobacco Type: Amount or Packs/day: How Many Years: Alcohol Use: No Frequency: Quant:
--- NOTE | 2019-05-07 13:10 | HPC ---
[facility] [place] [address] PAIN MANAGEMENT CONSULTATION Name: VARUN ALAS Room #: REG [facility]..#: [id number] Admission: 05/04/19 Attend Phys: Fina Hammonds Discharge: Date of : 59 Report #: [id number] THIS REPORT FOR: cc: DAPHNE RICHARDS MD, RACHEL MD Hocker,Fina GUAJARDO ~ DATE OF SERVICE: 05/04/2019 CHIEF COMPLAINT: Chronic back pain with radiculopathy as well as cervical radiculopathy. HISTORY OF PRESENT ILLNESS: This is a 64-year-old female who returns to the pain clinic today for refill of her medications. She is reporting a pain score today of 8/10, which is an average number per her report. Her pain is located in her neck localized with no radiculopathy and her lower back that radiates into her bilateral legs to her left foot. Stating it is an aching, stabbing, numbness, tingly feeling. It is worse after she has walked and been active throughout the day as well as weather changes. She does feel that the medications are beneficial, though she has been complaining of increased pain, especially later in the day. The patient reports that she recently saw Dr. Davila, an orthopedic doctor in a nearby clinic. He ordered an x-ray of her neck. She does not know those results and we will see him later this month. The patient also reports she had a colonoscopy and EGD that did not find any significant issues. She saw an ear, nose and throat doctor who visualized her vocal cords through a procedure stating that she is having some swelling there that may cause some of her hoarseness that she has been experiencing, but no further treatment has been given to her by that physician. ALLERGIES: No known drug allergies. CURRENT LIST OF MEDICATIONS: Oxycodone 10/325 p.r.n., OxyContin 20 mg b.i.d., tizanidine 4 mg t.i.d. p.r.n., Lyrica 100 mg t.i.d., amitriptyline 25 mg at bedtime, Protonix, Singulair, Advair, aspirin, Lasix, ProAir, Bentyl, potassium, and Zestril. PQRS: 1. She has osteoarthritis in her neck, back, shoulders and knees. Denies any rheumatoid arthritis. 2. Height is 5 feet 2 inches, weight is 207 and BMI is 37. 3. Vital signs 146/69, pulse is 74, respirations 18, oxygen sat is 99. 4. Pain score is 8/10. 5. Denies dizziness, does not need help walking or standing, has not fallen in [address] [address] PAIN MANAGEMENT CONSULTATION Name: VARUN ALAS [id number] Admission: 05/04/19 Attend Phys: Fina Hammonds Discharge: Date of : 59 Report #: [id number] the last 3 months. 6. The patient is not on any blood thinners, but does take medicine for hypertension. Her opioid therapy is greater than 6 weeks; therefore, an opioid signed contract is on the chart. Risk assessment tool is low. Functional assessment is 37/70. 7. Recreational drug use, she denies. She is a former smoker and does not drink alcohol. According to the prescription monitoring system, the patient is filling appropriately for her medications filling in a timely fashion using one pharmacy from Dr. Jim Nathan. Her morphine mEq is high, but stable on this dose for quite some time and we have reduced her slowly over the years. Currently, it is 120 morphine mEq a day. PHYSICAL EXAMINATION: GENERAL: This is alert and orientated 64-year-old female who appears her stated age, placing her current pain score an 8/10. HEENT: Normocephalic, atraumatic. Extraocular eye muscles are intact. She is wearing glasses today. NECK: Without adenopathy or JVD. Does complain of tenderness in her paraspinal musculature at the base of her neck. MUSCULOSKELETAL: She has pain that radiates from her lower back at the left to the foot following the L5-S1 dermatomal distribution. She has lower extremity strength that is equal and symmetrical at 5/5 though she does complain of possible myelopathic symptoms on the left as the day progresses. They are not present currently. IMPRESSION: 1. Lumbar radiculopathy following the L5-S1 dermatomal distribution. 2. Cervical fusion with radicular pain. 3. Chronic low back pain. 4. Muscle spasms in her upper back. 5. Complex medical management under terms of written opioid agreement. We reviewed the fact that opiate medications are being used to provide analgesia adequate to support activities of daily living, not attempting to achieve a specific pain score on the 0-10 Visual Analog Scale. The current opiate medications are providing sufficient analgesia to allow the patient to participate in activities of daily living. The patient is not exhibiting any aberrant behavior suggestive of drug diversion. The patient is not having any adverse reactions to medications. The patient is not suffering from daytime somnolence or mental acuity changes. The patient is managing opiate-induced constipation with appropriate wwvk-bom-lgcwdsd agents and dietary considerations. The patient was counseled on concern for caution with operating a motor vehicle while using opiate medications. [facility] [address] [place] [address] PAIN MANAGEMENT CONSULTATION Name: VARUN ALAS [facility] [id number] Admission: 05/04/19 Attend Phys: Fina Hammonds Discharge: Date of : 59 Report #: [id number] PLAN: 1. We discussed treatment options with the patient today. The patient reports she is seeking care from Dr. Davila who is an orthopedic for her next. She recently had plain film x-rays. I explained to her that if she is having increased cervical and lumbar pain, she may need an MRI to see if there are any changes. We have not had a study of her neck in quite some time. She believes that Dr. Davila will order this after she sees him next month. I encouraged the patient to have those reports sent to Dr. Nathan at this clinic, so we may review them with her. 2. The patient feels that her medication is adequately controlling her pain, though she knows that some days are worse than others. She would like refills of these medicines today. Dr. Nathan prescribed her oxycodone 10/325, #120 as well as OxyContin 20 mg, #60 for 1 month. The patient will return for followup visit at that time. 3. The patient denies any problems with constipation or daytime sleepiness as a result of her medications. <ELECTRONICALLY SIGNED> By: Fina Hammonds 05/07/19 1310 [id number] Fina portillo
== END ==
LOC: PAIN 06:50
DX: M54.16 Radiculopathy, lumbar region (principal); M43.22 Fusion of spine, cervical region; M54.5 Low back pain; Z79.891 Long term (current) use of opiate analgesic

== ENCOUNTER → 2019-05-31 | Outpatient (CLI) | payer OTHER ==
[~2019-05-31] VITALS: Ht 157.5 cm; Wt 95.0 kg
[2019-05-31 09:05] VITALS: BP 145/85
--- NOTE | 2019-05-31 09:15 | NUR ---
Pain Clinic Assessment: 1. History of Osteoarthritis: NECK BACK SHOULDERS KNEES FEET History of Rheumatoid Arthritis: NO 2. Height: 5 ft. 2 in. 157.5 cm. Weight: 209.4 lb. oz. 94.983 kg. Patient's BMI: 38.3 3. Vital Signs: BP: 145/85 Pulse: 99 Resp: 18 Temp: 02 Sat: 100 ECG Mon: 4. Pain Intensity: 9 5. Fall Risk: Dizziness: N Needs help standing or walking: N Fallen in the last 3 months: N Fall risk comments: 6. Patient on Blood Thinner: None 7. History of Hypertension: Y 8. Opioid Therapy greater than 6 weeks: Y Opiate Contract Signed: 10/24/15 9. Risk Assessment Tool Provided: low risk-1 10. Functional Assessment Tool: 11. Recreational Drug Use: Never Drug Type: Tobacco Use: Never Smoker Tobacco Type: Amount or Packs/day: How Many Years: Alcohol Use: No Frequency: Quant:
--- NOTE | 2019-05-31 13:42 | HPC ---
[facility] [address] [address] PAIN MANAGEMENT CONSULTATION Name: VARUN ALAS Room #: REG [facility]..#: [id number] Admission: 05/31/19 Attend Phys: Fina Hammonds Discharge: Date of : 59 Report #: [id number] THIS REPORT FOR: cc: DAPHNE RICHARDS MD, RACHEL MD Hocker,Fina GUAJARDO ~ DATE OF SERVICE: 05/31/2019 CHIEF COMPLAINT: Chronic back pain with radiculopathy and cervical radiculopathy. HISTORY OF PRESENT ILLNESS: This is a 64-year-old female who returns to the pain clinic today for refill of her medications. She arrived here on the wrong appointment date. She is quite upset by that. She has [employer] rides that take her to her doctor's appointments. She is very grateful that we did see her today with the coronavirus outbreak. She has been worried about going out to doctors' appointments. She did not want to return on another day. She is here for her oxycodone and OxyContin that she feels are beneficial in helping reduce some of her pain, though she reports she still continues to having increase in her cervical neck pain that radiates down her arms. She is also having left hip and leg pain. She did have an x-ray at [facility] that she has not been told the results. Her appointment with Dr. Davila has been postponed due to the coronavirus at [facility] and we have not received a copy of those reports. Today, Varun reports her pain score at 9/10. It is a tingling, sharp, aching pain that is worse with any movement and walking and weather changes. She feels like even raising her arms increases her pain. She reports that she is wearing a TENS unit today that is beneficial as well as her medications. Denies constipation problems associated with her medications. She recently underwent a colonoscopy and they did change some of her medicines. ALLERGIES: No known drug allergies. CURRENT LIST OF MEDICATIONS: Oxycodone 10/325, OxyContin 20 mg b.i.d., tizanidine 4 mg t.i.d., Lyrica 100 mg t.i.d., amitriptyline, Protonix, Advair, aspirin, Lasix, potassium, and Zestril. PQRS: 1. She has osteoarthritis in her neck, lumbar spine, shoulders, and knees. Denies rheumatoid arthritis. 2. Height is 5 feet 2, weight is 209, BMI is 38. 3. Vital signs: 145/85, pulse is 99, respirations 18, oxygen sat is 100. 4. Pain score is 9/10. 5. Denies dizziness. Does not need help walking or standing. Has not fallen in the last [address] [address] PAIN MANAGEMENT CONSULTATION Name: VARUN ALAS [id number] Admission: 05/31/19 Attend Phys: Fina Hammonds Discharge: Date of : 59 Report #: [id number] 6. The patient is not on any blood thinners, but does take medicine for hypertension. 7. Opioid therapy is greater than 6 weeks; therefore, an opioid signed contract is on the chart. Risk assessment tool is low. Functional assessment is 37/70. 8. Recreational drug use, she denies. She is not a smoker and does not drink alcohol. According to the prescription monitoring system, the patient is filling appropriately for her medications in a timely fashion. She is due to fill her medications today. Her morphine mEq is 120 MME per day. This is a significant decrease of where she was in the past. PHYSICAL EXAMINATION: GENERAL: This is alert and orientated 64-year-old female who appears her stated age, placing her current pain score at 9/10 today. HEENT: Normocephalic, atraumatic. Extraocular eye muscles are intact. NECK: Without adenopathy or JVD. She has tenderness in the paraspinal musculature of her neck, worse with lateral rotation as well as extension and flexion, radiates down her left arm with numbness and tingling in her hands. MUSCULOSKELETAL: She has low back pain radiating down her left leg following the L5-S1 dermatomal distribution. Her lower extremity strength is equal and symmetrical at 5/5. IMPRESSION: 1. Lumbar radiculopathy following the L5-S1 dermatomal distribution. 2. Cervical radiculopathy with previous fusion. 3. Chronic low back pain. 4. Myofascial pain. 5. Complex medical management under terms of written agreement. We reviewed the fact that opiate medications are being used to provide analgesia adequate to support activities of daily living, not attempting to achieve a specific pain score on the 0-10 Visual Analog Scale. The current opiate medications are providing sufficient analgesia to allow the patient to participate in activities of daily living. The patient is not exhibiting any aberrant behavior suggestive of drug diversion. The patient is not having any adverse reactions to medications. The patient is not suffering from daytime somnolence or mental acuity changes. The patient is managing opiate-induced constipation with appropriate xiqc-mey-figkttg agents and dietary considerations. The patient was counseled on concern for caution with operating a motor vehicle while using opiate medications. A physical exam was performed and the patient's functional status was evaluated. All patients with back pain were advised against the bed rest greater than 4 days and were advised to return to normal activities. Pain score assessment was noted and the treatment plan was reviewed with the patient. All current [facility] [address] [place] [address] PAIN MANAGEMENT CONSULTATION Name: VARUN ALAS Room #: REG [facility] M.R.#: [id number] Admission: 05/31/19 Attend Phys: Fina Hammonds Discharge: Date of : 59 Report #: [id number] medications, both prescribed and OTC were reviewed and reconciled on the electronic medical record. Tobacco screening was accomplished and smoking cessation was advised when indicated. BMI was noted and diet/exercise modification was recommended for all patients following outside normal parameters. I reviewed with the patient today their responsibilities to safeguard prescription medications, reviewed their responsibility to utilize medications only as prescribed by the physician. They are to seek and receive pain medications only from 1 physician group ( [facility]). They are to use 1 pharmacy and keep the clinic informed if they change pharmacies. Their responsibilities include making followup visits in a timely fashion and to avoid abrupt discontinuation of medication usage. Their responsibilities further include bringing their medications (bottles from the pharmacy with residual pills) to the visit for possible confirmation of pill counts and the patient understands it is their responsibility to submit to random drug screens to ensure both that the medications prescribed are present, and that no other controlled substances are present. All prescriptions provided today were generated electronically. 1. We discussed treatment options with the patient today. I explained that Dr. Xiao will electronically send her medications that is something Dr. Nathan does not normally do. I encouraged her to call once leaving here to see if there are prescriptions already and encouraged Braulio Barreto to drive through the pharmacies drive-through so she does not have to enter the building with the risk of COVID. We will write this on her discharge paper as well to show the Braulio Barreto furniture delivery driver. We will have him sent OxyContin 20 mg b.i.d., #60 as well as her oxycodone 10/325, #120 for 1 month. 2. The patient is not in need of her other medications of tizanidine, amitriptyline, and Lyrica. These have all been sent to [facility] for one year recently in March. 3. I encouraged the patient to obtain her records from [facility], have them fax us a copy of the x-ray report, so we can review this with Dr. Nathan, her normal doctor, to see if there are changes since her appointment with Dr. Davila has been postponed indefinitely. The patient verbalized understanding. She will call them today. 4. I also discussed if the patient is able to decrease her meds slightly over the next month. We are unsure of that supply chain of opioids. In case there was a problem, we would like her to have an extra supply at home. The patient verbalized understanding. The patient is seen today in collaboration with Dr. Seferino Xiao. <ELECTRONICALLY SIGNED> By: Fina Hammonds 05/31/19 1342 1013 1051 Fina Hammonds /nt
== END ==
LOC: PAIN 08:50
DX: M54.16 Radiculopathy, lumbar region (principal); M54.17 Radiculopathy, lumbosacral region; M79.18 Myalgia, other site; Z79.891 Long term (current) use of opiate analgesic; Z79.899 Other long term (current) drug therapy

== ENCOUNTER → 2019-06-27 | Outpatient (CLI) | payer OTHER ==
[~2019-06-27] VITALS: Ht 157.5 cm; Wt 98.9 kg
[2019-06-27 10:44] VITALS: BP 158/87
--- NOTE | 2019-06-27 10:53 | NUR ---
Pain Clinic Assessment: 1. History of Osteoarthritis: NECK BACK SHOULDERS KNEES FEET History of Rheumatoid Arthritis: NO 2. Height: 5 ft. 2 in. 157.5 cm. Weight: 218.0 lb. oz. 98.884 kg. Patient's BMI: 39.9 3. Vital Signs: BP: 158/87 Pulse: 96 Resp: 20 Temp: 02 Sat: 96 ECG Mon: 4. Pain Intensity: 8 5. Fall Risk: Dizziness: N Needs help standing or walking: N Fallen in the last 3 months: N Fall risk comments: 6. Patient on Blood Thinner: None 7. History of Hypertension: Y 8. Opioid Therapy greater than 6 weeks: Y Opiate Contract Signed: 10/24/15 9. Risk Assessment Tool Provided: low risk-1 10. Functional Assessment Tool: 11. Recreational Drug Use: Never Drug Type: Tobacco Use: Never Smoker Tobacco Type: Amount or Packs/day: How Many Years: Alcohol Use: No Frequency: Quant:
--- NOTE | 2019-07-04 08:03 | HPC ---
[facility] [place] [address] [address] [place] [address] PAIN MANAGEMENT CONSULTATION Name: VARUN ALAS Room #: REG [facility]..#: [id number] Admission: 06/27/19 Attend Phys: Scooby Nathan MD Discharge: Date of : 59 Report #: [id number] THIS REPORT FOR: cc: DAPHNE RICHARDS MD, DAPHNE Nathan,Scooby Luo MD ~ CC: Scooby Richards MD DATE OF SERVICE: 06/27/2019 CHIEF COMPLAINT: Here for medication renewal, still having lots of pain in my back and my neck. HISTORY: The patient is a 64-year-old female who has been followed in the Pain Clinic for a number of years. Continues to have pain and discomfort, which is problematic. Because of her increased pain and discomfort in her neck, she had imaging performed. X-ray of her neck was done a few days ago. She is somewhat concerned about the findings. She read the results, but could not make heads or tails or what they were talking about. She would like to have us to review this information. ALLERGIES: No known drug allergies. CURRENT MEDICATIONS: Amitriptyline, tizanidine, Lyrica, oxycodone 10/325 one p.o. q.i.d., OxyContin 20 mg b.i.d., Protonix, Singulair, Advil, aspirin, ibuprofen, Lasix, ProAir, Bentyl, potassium, Zestril. PAIN CLINIC ASSESSMENT/PQRS: 1. The patient has some osteoarthritic changes in her neck, back, and shoulders. Also, complains of knee and pain in her feet. She is not being treated for rheumatoid arthritis. 2. Height 5 feet 2 inches, weight 218 pounds, BMI is 39.4. 3. Vital signs: Blood pressure is 158/87, pulse 96, respiratory rate 20, room air saturation 96%. 4. Pain intensity, 10/14. 5. Fall risk. The patient has not fallen in the last 3 months. 6. Blood thinner. The patient is not on a blood thinning medication. 7. Hypertension. The patient is being treated for hypertension. 8. Opioids greater than 6 weeks. The patient received medication from one source the [facility]. 9. Risk assessment tool: Moderate for opioid use. 10. Functional assessment tool, . 11. Recreational drug use. The patient denies. 12. Tobacco: The patient denies use of tobacco. [address] [address] PAIN MANAGEMENT CONSULTATION Name: VARUN ALAS Room #: REG [facility]#: [id number] Admission: 06/27/19 Attend Phys: Scooby Nathan MD Discharge: Date of : 59 Report #: [id number] 13. Alcohol. The patient denies use of alcoholic beverages. PHYSICAL EXAMINATION: GENERAL: The patient is a well-developed, well-nourished black female, appears her stated age. She is alert and oriented x 3. Her affect is appropriate. Speech is fluent. HEENT: Normocephalic, atraumatic. Extraocular eye muscles intact. Sclerae nonicteric. Mucous membranes are moist. The patient has some limited movement of her neck. Complains of some pain in her shoulders and down into her arms. HEART: Regular rate. ABDOMEN: Protuberant. MUSCULOSKELETAL: The patient without significant scoliosis, kyphosis or lordosis. Upper extremity muscle strength judged to be 5-/5 for the major muscle groups in the upper extremity. Lower extremity muscle strength judged to be 5-/5 with pain in the L5-S1 dermatomal distribution with radiation down into her legs. IMPRESSION: 1. History of lumbar radiculopathy. 2. Cervical fusion with cervical pain. 3. Chronic low back pain. 4. Complex medical management to treat opioid medications. RECOMMENDATIONS: We discussed treatment options with the patient. The patient had an x-ray of her neck, showed that she had had surgery in the cervical C3 through C7 area. No significant pathology was noted. There was no evidence of the screws loosening. Overall, the patient felt better after we explained to her in layman's terms with the findings of her x-ray work. She will continue with her current medication dosing. A script for her medication has been prescribed. She will continue with amitriptyline 25 mg 1 p.o. at bedtime. She will also continue with Lyrica 100 mg 1 p.o. t.i.d. She will continue with tizanidine for muscle relaxant. The patient will also continue with the oxycodone 20 mg one p.o. b.i.d. She will also continue with the oxycodone 10 mg/325 one p.o. up to 4 times daily. She will call us if she has any concerns. She is aware that the opioid medications over time can become less effective because of development of tolerance. She is not showing signs of addiction. She is taking the medication as prescribed. We would like to thank you for letting us participate in her care. We hope she continues to improve. <ELECTRONICALLY SIGNED> By: Scooby Nathan MD 07/04/19 [id number] Scooby Nathan MD /selena
== END ==
LOC: PAIN 07:09
DX: M43.22 Fusion of spine, cervical region (principal); M54.5 Low back pain; M54.2 Cervicalgia; F11.20 Opioid dependence, uncomplicated; Z79.899 Other long term (current) drug therapy

== ENCOUNTER → 2019-07-25 | Outpatient (CLI) | payer OTHER ==
[~2019-07-25] VITALS: Ht 157.5 cm; Wt 94.3 kg
[2019-07-25 09:59] VITALS: BP 129/72
--- NOTE | 2019-07-25 10:09 | NUR ---
Pain Clinic Assessment: 1. History of Osteoarthritis: NECK BACK SHOULDERS KNEES FEET History of Rheumatoid Arthritis: NO 2. Height: 5 ft. 2 in. 157.5 cm. Weight: 207.8 lb. oz. 94.258 kg. Patient's BMI: 38.0 3. Vital Signs: BP: 129/72 Pulse: 102 Resp: 16 Temp: 02 Sat: 98 ECG Mon: 4. Pain Intensity: 9 5. Fall Risk: Dizziness: N Needs help standing or walking: N Fallen in the last 3 months: N Fall risk comments: 6. Patient on Blood Thinner: None 7. History of Hypertension: Y 8. Opioid Therapy greater than 6 weeks: Y Opiate Contract Signed: 10/24/15 9. Risk Assessment Tool Provided: low risk-1 10. Functional Assessment Tool: 11. Recreational Drug Use: Never Drug Type: Tobacco Use: Never Smoker Tobacco Type: Amount or Packs/day: How Many Years: Alcohol Use: No Frequency: Quant:
--- NOTE | 2019-07-25 15:38 | HPC ---
[facility] [place] [address] PAIN MANAGEMENT CONSULTATION Name: VARUN ALAS Room #: REG [facility]..#: [id number] Admission: 07/25/19 Attend Phys: Fina Hammonds Discharge: Date of : 59 Report #: [id number] THIS REPORT FOR: cc: DAPHNE RICHARDS MD, RACHEL MD Hocker,Fina GUAJARDO ~ CC: Skui Nathan MD DATE OF SERVICE: 07/25/2019 CHIEF COMPLAINT: Cervical radiculopathy and lumbar radiculopathy. HISTORY OF PRESENT ILLNESS: This is a 64-year-old female who is well known to the Pain Clinic, returns to us today for a refill of her medications. She states that she is having severe neck pain radiating into her arms. She is going to see a neurosurgeon next month. Per her report, Dr. Davila told her that she had a screw that had moved from her fusion. The patient also continues to complain of low back pain that radiates into her knees and hips to her left foot. It is an aching, burning, stabbing pain with numbness in her right foot today, rating a pain score of 9/10. Her pain is increased with movement and weather changes in a rainy period which has greatly increased her pain. She does report that she has been staying home due to the COVID outbreak, which had been beneficial since she had not been as active, but the weather has made it worse again. The patient does report that the medicines are beneficial with minimal side effects of constipation or daytime sleepiness. ALLERGIES: No known drug allergies. CURRENT LIST OF MEDICATIONS: Tizanidine 4 mg, Lyrica 100 mg, amitriptyline 25 mg, oxycodone 10/325 p.r.n., OxyContin 20 mg b.i.d., Protonix, Advair, aspirin, Lasix, potassium, and Zestril. PATIENT'S PQRS: 1. She has arthritic changes in her neck, spine, shoulders and knees. Denies any rheumatoid arthritis. 2. Height is 5 feet 2 inches, Weight is 207 and BMI is 38. Vital signs 129/72, pulse is 102, respirations 16, and oxygen sat is 98. Pain score is 9/10. 3. Fall risk. Denies dizziness, does not need help walking or standing, has not fallen in the last 3 months. The patient is not on any blood thinners, but does take medicine for hypertension. Opioid therapy is greater than 6 weeks; therefore, an opioid signed contract is on the chart. Risk assessment tool is low. Functional assessment is 37/70. 4. Recreational drug use, she denies. She is not a smoker [place] [address] PAIN MANAGEMENT CONSULTATION Name: VARUN ALAS [id number] Admission: 07/25/19 Attend Phys: Fina Hammonds Discharge: Date of : 59 Report #: [id number] According to the prescription monitoring system, the patient is filling appropriately for her medications. She is due to fill those medicines today. PHYSICAL EXAMINATION: GENERAL: This is a well-developed, well-nourished black female who appears her stated age, slightly obese. She is alert and orientated. Speech is fluent, rating her pain score at 9/10 today. HEENT: Normocephalic, atraumatic. Extraocular eye muscles are intact. Sclerae are non-intrinsic. She is wearing a mask. She has limited movement in her neck with pain that radiates into her shoulders and bilateral arms. ABDOMEN: Protuberant. MUSCULOSKELETAL: She is without significant scoliosis, kyphosis or lordosis. She has pain in her lumbar back that follows the L5-S1 dermatomal distribution with pain greater on the right than the left. Her upper and lower extremity strength judged to be 5/5 in all major muscle groups. She walks with a slow antalgic gait. IMPRESSION: 1. History of cervical and lumbar radiculopathy. 2. Cervical fusion with cervical pain. 3. Cervical radiculopathy. 4. Chronic low back pain. 5. Complex medical management under terms of written opioid agreement. We reviewed the fact that opiate medications are being used to provide analgesia adequate to support activities of daily living, not attempting to achieve a specific pain score on the 0-10 Visual Analog Scale. The current opiate medications are providing sufficient analgesia to allow the patient to participate in activities of daily living. The patient is not exhibiting any aberrant behavior suggestive of drug diversion. The patient is not having any adverse reactions to medications. The patient is not suffering from daytime somnolence or mental acuity changes. The patient is managing opiate-induced constipation with appropriate eyas-fob-ouwnxro agents and dietary considerations. The patient was counseled on concern for caution with operating a motor vehicle while using opiate medications. PLAN: 1. We discussed treatment options with the patient today. The patient is going to see the neurosurgeon. The patient's report says that a superior screw is slightly elevated from the plate. The patient reports she is not going to have surgery, but she would like to at least speak with the surgeon. 2. The patient continues with her medications as prescribed. Today, we will send electronically her OxyContin 20 mg b.i.d. and oxycodone 10/325, #120. Dr. Nathan will send these electronically to her pharmacy. 3. She is not needing her amitriptyline, Lyrica or tizanidine refilled today. [facility] [address] [place] [address] PAIN MANAGEMENT CONSULTATION Name: VARUN ALAS [facility] [id number] Admission: 07/25/19 Attend Phys: Fina Hammonds Discharge: Date of : 59 Report #: [id number] 4. The patient will return in 1 month for followup. The patient is seen in collaboration with Dr. Jim Nathan today. <ELECTRONICALLY SIGNED> By: Fina Hammonds 07/25/19 1538 [id number] Fina Hammonds /nt
== END ==
LOC: PAIN 07:01
DX: M54.12 Radiculopathy, cervical region (principal); M54.16 Radiculopathy, lumbar region; G89.29 Other chronic pain; Z79.891 Long term (current) use of opiate analgesic

== ENCOUNTER → 2019-08-22 | Outpatient (CLI) | payer OTHER ==
[~2019-08-22] VITALS: Ht 157.5 cm; Wt 94.0 kg
[2019-08-22 09:22] VITALS: BP 101/71
--- NOTE | 2019-08-22 09:33 | NUR ---
Pain Clinic Assessment: 1. History of Osteoarthritis: NECK BACK SHOULDERS KNEES FEET History of Rheumatoid Arthritis: NO 2. Height: 5 ft. 2 in. 157.5 cm. Weight: 207.2 lb. oz. 93.985 kg. Patient's BMI: 37.9 3. Vital Signs: BP: 101/71 Pulse: 88 Resp: 20 Temp: 02 Sat: 100 ECG Mon: 4. Pain Intensity: 9 5. Fall Risk: Dizziness: Y Needs help standing or walking: N Fallen in the last 3 months: N Fall risk comments: 6. Patient on Blood Thinner: None 7. History of Hypertension: Y 8. Opioid Therapy greater than 6 weeks: Y Opiate Contract Signed: 10/24/15 9. Risk Assessment Tool Provided: low risk-1 10. Functional Assessment Tool: 11. Recreational Drug Use: Never Drug Type: Tobacco Use: Never Smoker Tobacco Type: Amount or Packs/day: How Many Years: Alcohol Use: No Frequency: Quant:
--- NOTE | 2019-08-22 12:30 | HPC ---
[facility] [address] [place] [address] PAIN MANAGEMENT CONSULTATION Name: VARUN ALAS Room #: REG [facility] M.R.#: [id number] Admission: 08/22/19 Attend Phys: Fina Hammonds Discharge: Date of : 59 Report #: [id number] THIS REPORT FOR: cc: DAPHNE RICHARDS MD, RACHEL MD Hocker,Fina GUAJARDO ~ CC: Fina Nathan MD DATE OF SERVICE: 08/22/2019 CHIEF COMPLAINT: Cervical radiculopathy and lumbar radiculopathy. HISTORY OF PRESENT ILLNESS: This is a 64-year-old female who is well known to the Pain Clinic. She returns today complaining of increased pain, especially in her neck and arms. She is also having some pain in her left outer aspect of her foot. She is rating her pain score of 9/10 today. It is an aching, stabbing, numbness, tingly feeling that is worse with movement and walking. She is tearful at times throughout her visit today. She is going to see a neurosurgeon next week to discuss the screws in her neck that have been displaced. She is considering surgical intervention because her pain has been increasing. She is going to see what the neurosurgeon recommends. Today, she is needing refills of her opioid medications, which normally are able to keep her pain somewhat under control. ALLERGIES: No known drug allergies. CURRENT LIST OF MEDICATIONS: Oxycodone 10/325 p.r.n., OxyContin 20 mg b.i.d., tizanidine 4 mg, Lyrica 100 mg t.i.d., amitriptyline 25 mg at bedtime, Protonix, lidocaine, Advair, aspirin, Lasix, ProAir, potassium, and Zestril. PQRS: 1. She has osteoarthritic changes in her neck, back, legs, knees, shoulders. Denies any rheumatoid arthritis. 2. Height is 5 feet 2 inches, weight is 207 and BMI is 37. 3. Vital signs, 101/71, pulse is 88, respirations 20, oxygen sat is 100. 4. Pain score is 9/10. 5. Complains of slight dizziness. Does not need help walking or standing, has not fallen in the last 3 months. The patient is not on any blood thinners, but does take medicine for hypertension. Her opioid therapy is greater than 6 weeks; therefore, an opioid signed contract is on the chart. Risk assessment is low. Functional assessment is 37/70. 6. Recreational drug use, she denies. She is not a smoker and does not drink alcohol. According to the prescription monitoring system, the patient is filling [address] [address] PAIN MANAGEMENT CONSULTATION Name: VARUN ALAS Room #: REG CLI [facility].#: [id number] Admission: 08/22/19 Attend Phys: Fina Hammonds Discharge: Date of : 59 Report #: [id number] appropriately for her medications, filling them in a timely fashion. She is due to fill those medicines today. Her morphine milligram equivalent is 120. She has been stable on these meds for quite some time, which has been a decrease over the years. We will check a random drug screen on her on the next visit. PHYSICAL EXAMINATION: GENERAL: This is a well-developed, well-nourished white female who appears her stated age. She is slightly depressed today and tearful throughout her visit, rating her pain score at 9/10. She is alert and orientated. HEENT: Normocephalic, atraumatic. Extraocular eye muscles are intact. Sclerae are nonintrinsic. She is wearing a mask. NECK: She has limited movement in her neck with flexion and extension. Pain radiates into her arms and shoulders following the C6-C7 dermatomal distribution. ABDOMEN: Protuberant. MUSCULOSKELETAL: The patient is without significant scoliosis, kyphosis or lordosis. Her upper extremity strength judged to be 5/5 in all major muscle groups as well as her lower extremity. She is having pain that is radiating down her left leg into her foot today following the L5-S1 dermatomal distribution. IMPRESSION: 1. Cervical radiculopathy. 2. Lumbar radiculopathy. 3. Cervical fusion with cervical pain that is increasing. 4. Chronic low back pain. 5. Complex medical management under terms of written opioid agreement. We reviewed the fact that opiate medications are being used to provide analgesia adequate to support activities of daily living, not attempting to achieve a specific pain score on the 0-10 Visual Analog Scale. The current opiate medications are providing sufficient analgesia to allow the patient to participate in activities of daily living. The patient is not exhibiting any aberrant behavior suggestive of drug diversion. The patient is not having any adverse reactions to medications. The patient is not suffering from daytime somnolence or mental acuity changes. The patient is managing opiate-induced constipation with appropriate pwai-ayi-sokffry agents and dietary considerations. The patient was counseled on concern for caution with operating a motor vehicle while using opiate medications. PLAN: 1. We discussed treatment options with the patient today. The patient sees the neurosurgeon next week. We encouraged her to send us reports from that visit as well as any MRIs or x-rays that he may have performed. She is now considering having intervention if he recommends due to the fact that her pain is increasing and is not as controlled as it was in the past. [facility] [address] [place] [address] PAIN MANAGEMENT CONSULTATION Name: VARUN ALAS Room #: REG [facility].#: [id number] Admission: 08/22/19 Attend Phys: Fina Hammonds Discharge: Date of : 59 Report #: [id number] 2. We did discuss the patient's weight. She feels that it has been increasing over time, which according to the chart it has, though it has decreased in the last few months. I encouraged the patient to be cordero with her diet as well as exercise when she feels that she is able. The patient verbalizes understanding. 3. We will send electronically her OxyContin 20 mg twice a day and her Percocet 10/325 up to [address] Valerio Nathan will send these electronically. 4. The patient is not needing her other prescriptions today. [facility] of [facility]. 5. The patient is seen in collaboration with Dr. Jim Nathan. We will obtain a random drug screen on her at the next visit in 1 month. <ELECTRONICALLY SIGNED> By: Fina Hammonds 08/22/19 1230 [id number] Fina Hammonds /selena
== END ==
LOC: PAIN 06:50
PROVIDERS: ATTEND Clinical Nurse Specialist Adult Health
DX: M54.16 Radiculopathy, lumbar region (principal); M54.12 Radiculopathy, cervical region; M96.1 Postlaminectomy syndrome, not elsewhere classified; F11.20 Opioid dependence, uncomplicated; Z79.899 Other long term (current) drug therapy

== ENCOUNTER → 2019-09-19 | Outpatient (CLI) | payer OTHER ==
[~2019-09-19] VITALS: Ht 157.5 cm; Wt 92.9 kg
[~2019-09-19] MED LIST changes: +ASPIR 8181 MG PO; -ASPIRIN325 PO; +PERCOCET 10-321 EAC1 PO
[2019-09-19 09:42] VITALS: BP 104/66
--- NOTE | 2019-09-19 09:57 | NUR ---
Pain Clinic Assessment: 1. History of Osteoarthritis: NECK BACK SHOULDERS KNEES FEET History of Rheumatoid Arthritis: NO 2. Height: 5 ft. 2 in. 157.5 cm. Weight: 204.8 lb. oz. 92.897 kg. Patient's BMI: 37.4 3. Vital Signs: BP: 104/66 Pulse: 94 Resp: 20 Temp: 02 Sat: 100 ECG Mon: 4. Pain Intensity: 10 5. Fall Risk: Dizziness: N Needs help standing or walking: N Fallen in the last 3 months: N Fall risk comments: 6. Patient on Blood Thinner: None 7. History of Hypertension: Y 8. Opioid Therapy greater than 6 weeks: Y Opiate Contract Signed: 10/24/15 9. Risk Assessment Tool Provided: low risk-1 10. Functional Assessment Tool: 11. Recreational Drug Use: Never Drug Type: Tobacco Use: Never Smoker Tobacco Type: Amount or Packs/day: How Many Years: Alcohol Use: No Frequency: Quant:
--- NOTE | 2019-09-26 07:42 | HPC ---
[facility] [address] [address] PAIN MANAGEMENT CONSULTATION Name: VARUN ALAS Room #: REG [facility]..#: [id number] Admission: 09/19/19 Attend Phys: Fina Hammonds Discharge: Date of : 59 Report #: [id number] THIS REPORT FOR: cc: DAPHNE RICHARDS MD, RACHEL MD Hocker,Fina GUAJARDO ~ CC: Suki Nathan MD DATE OF SERVICE: 09/19/2019 CHIEF COMPLAINT: Cervical radiculopathy and lumbar radiculopathy. HISTORY OF PRESENT ILLNESS: This is a 64-year-old female who is well known to the pain clinic. Today, she is returning for medication refills. She is reporting a pain score of 10/10. She states that her neck pain is increasing. It is radiating down her arms. She does have pain that does radiate all the way to her feet as well. She feels that she is having some weakness in her upper extremities. She has seen a neurosurgeon at [facility] and is scheduled for a cervical MRI on this Tuesday. They are trying to determine if she is needing another surgery due to a screw that is possibly moved in her cervical spine. The patient states her pain is a stabbing, aching, sharp pain at times, worse with any movement and weather changes. She feels that her medications are beneficial, though not as beneficial as they had in the past. She continues to use heat, ice, and pain creams as well. She denies problems with constipation or daytime somnolence as a result of her medications. ALLERGIES: No known drug allergies. CURRENT LIST OF MEDICATIONS: Oxycodone 10/325 p.r.n., OxyContin 20 mg b.i.d., tizanidine, Lyrica, amitriptyline, Protonix, Advair, aspirin, ProAir and Zestril. PQRS: 1. She has arthritic changes in her neck, lumbar spine, shoulders and knees. Denies rheumatoid arthritis. 2. Height is 5 feet 2 inches, weight is 204. BMI is 37. 3. Vital signs 104/66, pulse is 94, respirations 20, oxygen sat is 100. 4. Pain score is 10/10. 5. Denies dizziness. Does not need help walking or standing, has not fallen in the last 3 months. 6. The patient is not on any blood thinners, but does take medicine for hypertension. 7. Opiate therapy is greater than 6 weeks; therefore, an opioid signed contract is on the chart. Risk assessment tool is low. Functional assessment is 37/70. 8. Recreational drug use, she denies. She is not a smoker and does not drink alcohol. [address] [address] PAIN MANAGEMENT CONSULTATION Name: VARUN ALAS [id number] Admission: 09/19/19 Attend Phys: Fina Hammonds Discharge: Date of : 59 Report #: [id number] According to the prescription monitoring system, the patient is due to fill her medications today. She has been filling them in a timely fashion. Her morphine mEq is 120 MME per day. We will check a random drug screen on this patient since it has been greater than one year. The patient states that she did take her medicine last night. PHYSICAL EXAMINATION: GENERAL: This is an alert and orientated, well-developed, well-nourished 64-year-old female, placing her pain score at 10/10 today. She is a good historian. HEENT: Normocephalic, atraumatic. Extraocular eye muscles are intact. Sclerae are nonintrinsic. She is wearing a mask. NECK: She has limited movement in her flexion and extension of her cervical spine. Pain radiates down her bilateral arms to her hands following the C6-7 dermatomal distribution. Upper extremity strength, slightly diminished at 4/5. MUSCULOSKELETAL: She is without significant scoliosis, kyphosis or lordosis. Pain radiates from her lumbar spine down her left leg to her foot following the L5-S1 dermatomal distribution. She has an antalgic gait. IMPRESSION: 1. Cervical radiculopathy. 2. Cervical fusion with cervical pain that is increasing. 3. Lumbar radiculopathy. 4. Chronic low back pain. 5. Complex medical management under terms of written opioid agreement. We reviewed the fact that opiate medications are being used to provide analgesia adequate to support activities of daily living, not attempting to achieve a specific pain score on the 0-10 Visual Analog Scale. The current opiate medications are providing sufficient analgesia to allow the patient to participate in activities of daily living. The patient is not exhibiting any aberrant behavior suggestive of drug diversion. The patient is not having any adverse reactions to medications. The patient is not suffering from daytime somnolence or mental acuity changes. The patient is managing opiate-induced constipation with appropriate wyfs-oaz-fjxlntl agents and dietary considerations. The patient was counseled on concern for caution with operating a motor vehicle while using opiate medications. PLAN: 1. We discussed treatment options with the patient today. The patient is having a cervical MRI performed at [facility] on Tuesday. I encouraged the patient to have them send us the report and as well knot picker cloth a disk, so Dr. Nathan can review this at her next visit. It may be that she needs a possible injection if they are not requiring surgery, but she will follow up with the neurosurgeon, which she does not recall the name at this time. [address] [address] PAIN MANAGEMENT CONSULTATION Name: VARUN ALAS [facility] [id number] Admission: 09/19/19 Attend Phys: Fina Hammonds Discharge: Date of : 59 Report #: [id number] 2. The patient is having increased pain, but we are not at this time going to increase her pain medications. We will continue her at the current dose of OxyContin 20 mg b.i.d., #60, and oxycodone 10/325, #120. These will be sent electronically by Dr. Nathan to her [facility] pharmacy. 3. Today, she does not need her Lyrica, tizanidine and Elavil refilled. 4. We will obtain a random drug screen on this patient as well today. The patient is seen today in collaboration with Dr. Jim Nathan. The patient will follow up in 1 month if not before for an appointment with him. <ELECTRONICALLY SIGNED> By: Fina Hammonds 09/26/19 0742 [id number] Fina Hammonds /selena
== END ==
LOC: PAIN 06:56
PROVIDERS: ATTEND Clinical Nurse Specialist Adult Health
DX: M54.12 Radiculopathy, cervical region (principal); M54.16 Radiculopathy, lumbar region; F11.20 Opioid dependence, uncomplicated; M43.22 Fusion of spine, cervical region

== ENCOUNTER → 2019-10-17 | Outpatient (CLI) | payer OTHER ==
[~2019-10-17] VITALS: Ht 157.5 cm; Wt 93.1 kg
[2019-10-17 10:05] VITALS: BP 116/79
--- NOTE | 2019-10-17 10:12 | NUR ---
Pain Clinic Assessment: 1. History of Osteoarthritis: NECK BACK SHOULDERS KNEES FEET History of Rheumatoid Arthritis: NO 2. Height: 5 ft. 2 in. 157.5 cm. Weight: 205.2 lb. oz. 93.078 kg. Patient's BMI: 37.5 3. Vital Signs: BP: 116/79 Pulse: 92 Resp: 16 Temp: 02 Sat: 98 ECG Mon: 4. Pain Intensity: 9 5. Fall Risk: Dizziness: N Needs help standing or walking: N Fallen in the last 3 months: N Fall risk comments: 6. Patient on Blood Thinner: None 7. History of Hypertension: Y 8. Opioid Therapy greater than 6 weeks: Y Opiate Contract Signed: 10/24/15 9. Risk Assessment Tool Provided: low risk-1 10. Functional Assessment Tool: 11. Recreational Drug Use: Never Drug Type: Tobacco Use: Never Smoker Tobacco Type: Amount or Packs/day: How Many Years: Alcohol Use: No Frequency: Quant:
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
== END ==
LOC: PAIN 06:55
PROVIDERS: ATTEND Anesthesiology Pain Medicine
DX: M54.5 Low back pain (principal); M54.2 Cervicalgia; F11.20 Opioid dependence, uncomplicated; Z87.39 Personal history of other diseases of the musculoskeletal system and connective tissue; Z79.899 Other long term (current) drug therapy

== ENCOUNTER → 2019-11-16 | Outpatient (CLI) | payer OTHER ==
[~2019-11-16] VITALS: Ht 157.5 cm; Wt 92.5 kg
[2019-11-16 10:44] VITALS: BP 107/76
--- NOTE | 2019-11-16 10:51 | NUR ---
Pain Clinic Assessment: 1. History of Osteoarthritis: NECK BACK SHOULDERS KNEES FEET History of Rheumatoid Arthritis: NO 2. Height: 5 ft. 2 in. 157.5 cm. Weight: 204.0 lb. oz. 92.534 kg. Patient's BMI: 37.3 3. Vital Signs: BP: 107/76 Pulse: 84 Resp: 14 Temp: 02 Sat: 98 ECG Mon: 4. Pain Intensity: 10 5. Fall Risk: Dizziness: N Needs help standing or walking: N Fallen in the last 3 months: N Fall risk comments: 6. Patient on Blood Thinner: None 7. History of Hypertension: Y 8. Opioid Therapy greater than 6 weeks: Y Opiate Contract Signed: 10/24/15 9. Risk Assessment Tool Provided: low risk-0 10. Functional Assessment Tool: 11. Recreational Drug Use: Never Drug Type: Tobacco Use: Never Smoker Tobacco Type: Amount or Packs/day: How Many Years: Alcohol Use: No Frequency: Quant:
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
== END ==
LOC: PAIN 06:52
PROVIDERS: ATTEND Anesthesiology Pain Medicine
DX: M54.5 Low back pain (principal); G89.29 Other chronic pain; F11.20 Opioid dependence, uncomplicated; Z87.39 Personal history of other diseases of the musculoskeletal system and connective tissue; Z79.899 Other long term (current) drug therapy

== ENCOUNTER → 2019-12-14 | Outpatient (CLI) | payer OTHER ==
[~2019-12-14] VITALS: Ht 157.5 cm; Wt 95.6 kg
[2019-12-14 09:46] VITALS: BP 120/75
--- NOTE | 2019-12-14 09:50 | NUR ---
Pain Clinic Assessment: 1. History of Osteoarthritis: NECK BACK SHOULDERS KNEES FEET History of Rheumatoid Arthritis: NO 2. Height: 5 ft. 2 in. 157.5 cm. Weight: 210.8 lb. oz. 95.618 kg. Patient's BMI: 38.5 3. Vital Signs: BP: 120/75 Pulse: 94 Resp: 20 Temp: 02 Sat: 97 ECG Mon: 4. Pain Intensity: 9 5. Fall Risk: Dizziness: N Needs help standing or walking: N Fallen in the last 3 months: N Fall risk comments: 6. Patient on Blood Thinner: None 7. History of Hypertension: Y 8. Opioid Therapy greater than 6 weeks: Y Opiate Contract Signed: 10/24/15 9. Risk Assessment Tool Provided: low risk-0 10. Functional Assessment Tool: 11. Recreational Drug Use: Never Drug Type: Tobacco Use: Never Smoker Tobacco Type: Amount or Packs/day: How Many Years: Alcohol Use: No Frequency: Quant:
--- NOTE | 2019-12-17 08:26 | HPC ---
[facility] [address] [address] PAIN MANAGEMENT CONSULTATION Name: VARUN ALAS Room #: REG [facility].#: [id number] Admission: 12/14/19 Attend Phys: Fina Hammonds Discharge: Date of : 59 Report #: [id number] CC: Fina Hammonds DAPHNE RICHARDS DATE OF SERVICE: 12/14/2019 CHIEF COMPLAINT: Chronic cervical radiculopathy and lumbar radiculopathy. HISTORY OF PRESENT ILLNESS: This is a well-known 64-year-old who comes to our clinic for medication refills. She has been a patient for several years for her ongoing neck and back pain. Today, she is reporting a pain score of 9/10. It continues to be elevated due to significant stressors at home. She has had multiple family members in the last month due to COVID and cancer, that continues to be problematic in her life causing her some increased stress as well as been increasing her chronic pain. Today, she is reporting that the most significant pain is in her neck and her right hand. Her thumb is very tender. She has obtained a brace to wear, but feels like it is not beneficial. Walking and movement do increase her pain as well as weather changes. Today, she reports her pain score as 9/10. She feels the medications are beneficial and denies any constipation issues as a result of those. She also uses a hot tub and creams and they are beneficial as well. ALLERGIES: No known drug allergies. CURRENT LIST OF MEDICATIONS: Tizanidine 4 mg t.i.d. p.r.n., Lyrica 100 mg t.i.d., oxycodone 10/325 q.i.d., OxyContin 20 mg b.i.d., amitriptyline, Protonix, Advair, aspirin, ProAir and lisinopril. PQRS: 1. The patient has osteoarthritic changes that are diffuse in her neck, back, shoulders, hands and feet. Denies any rheumatoid arthritis. 2. Height is 5 feet 2 inches, weight is 210 and BMI is 38. 3. Vital signs: 120/75, pulse is 94, respirations 20, oxygen sat is 97%. 4. Pain score is 9/10. 5. Fall risk. Denies dizziness. Does not need help walking or standing. Has not fallen in the last 3 months. 6. The patient is not on any blood thinners, but does take medicine for hypertension. 7. Opioid therapy is greater than 6 weeks; therefore, an opioid signed contract is on the chart. Risk assessment is low. Functional assessment is 56/70. 8. Recreational drug use, she denies. She is not a smoker and does not drink alcohol. According to the prescription monitoring system, she is filling medicines in a timely fashion with no deviation. Her morphine mEq is above the CDC guidelines, but she has tapered over the years and has been stable on this dose. We do see her on a monthly basis. PHYSICAL EXAMINATION: GENERAL: This is an alert and orientated, well-developed, well-nourished, slightly obese 64-year-old who appears her stated age. She is tearful throughout some of our visit today, rating her pain at 9/10. HEENT: Normocephalic, atraumatic. Extraocular eye muscles are intact. Sclerae nonintrinsic. She is wearing a mask. NECK: She has tenderness in her cervical region that does radiate into her arms with perceived weakness in her left hand. MUSCULOSKELETAL: She is without significant scoliosis, kyphosis or lordosis. Her upper extremity strength is symmetrical at 5/5. She has pain in her left thumb with movement, lower lumbosacral region, she has tenderness that radiates into her L5-S1 dermatomal distribution into her bilateral legs. IMPRESSION: 1. History of lumbar radiculopathy. 2. History of cervical fusion with instrumentation and radiculopathy. 3. Chronic low back pain. 4. Osteoarthritis. 5. Complex medical management utilizing opioid medications. We reviewed the fact that opiate medications are being used to provide analgesia adequate to support activities of daily living, not attempting to achieve a specific pain score on the 0-10 Visual Analog Scale. The current opiate medications are providing sufficient analgesia to allow the patient to participate in activities of daily living. The patient is not exhibiting any aberrant behavior suggestive of drug diversion. The patient is not having any adverse reactions to medications. The patient is not suffering from daytime somnolence or mental acuity changes. The patient is managing opiate-induced constipation with appropriate [id number] agents and dietary considerations. The patient was counseled on concern for caution with operating a motor vehicle while using opiate medications. PLAN: 1. We discussed treatment options with the patient today. I encouraged her to try diclofenac gel 4 times a day on her thumb to see if that may help that arthritic joint feel better. If she would like to continue her brace as well that is fine. If the patient does return in the next month and continues to complain of weakness in this extremity, we may order physical therapy. 2. We will continue her on her OxyContin and oxycodone. These scripts will be sent electronically by Dr. Nathan. 3. The patient is seen today in collaboration with Dr. Nathan. <ELECTRONICALLY SIGNED> By: Fina Hammonds 12/17/19 0826 [id number] [id number] Fina Hammonds /selena
== END ==
LOC: PAIN 07:00
PROVIDERS: ATTEND Clinical Nurse Specialist Adult Health
DX: M54.16 Radiculopathy, lumbar region (principal); M54.12 Radiculopathy, cervical region; G89.29 Other chronic pain; M19.90 Unspecified osteoarthritis, unspecified site; F11.20 Opioid dependence, uncomplicated; Z87.39 Personal history of other diseases of the musculoskeletal system and connective tissue; Z79.899 Other long term (current) drug therapy

== ENCOUNTER → 2020-01-11 | Outpatient (CLI) | payer OTHER ==
[~2020-01-11] VITALS: Ht 157.5 cm; Wt 95.3 kg
--- NOTE | ~2020-01-11 | HPC ---
[facility] [place] [address] PAIN MANAGEMENT CONSULTATION Name: VARUN ALAS Room #: REG [facility].#: [id number] Admission: 01/11/20 Attend Phys: Scooby Nathan MD Discharge: Date of : 59 Report #: [id number] THIS REPORT FOR: cc: DAPHNE RICHARDS MD, DAPHNE Nathan,Scooby Luo MD ~ CC: Scooby RICHARDS DATE OF SERVICE: 01/11/2020 CHIEF COMPLAINT: Chronic back and neck pain. HISTORY: The patient is a 64-year-old female who has been followed in the Pain Clinic. She suffers from pain and discomfort, which has been problematic. She has had cervical instrumentation. She has decreased mobility in her neck. She also has pain and discomfort in the low back area. She now is having more pain involving her left hand down near her thumb. She has been trying to stay sheltered because of the COVID-19. She is still getting over the shock of a number of family members and close friends who have recently. ALLERGIES: No known drug allergies. CURRENT MEDICATIONS: Oxycodone 10/325, OxyContin 20 mg b.i.d., tizanidine, Lyrica, amitriptyline, Protonix, Advair, aspirin, ProAir, and Zestril. PAIN CLINIC ASSESSMENT AND PQRS: 1. The patient has pain from osteoarthritic changes in her neck, back, shoulders, knees and feet. Has pain in her hand. She is not being treated for rheumatoid arthritis. 2. Height 5 feet 2 inches, weight 204 pounds, BMI is 37. 3. Vital Signs: Blood pressure 106/63, pulse 89, respiratory rate 18, room air saturation 96%. 4. Pain intensity, 12/14. 5. Fall history: The patient has not fallen in the last 3 months. 6. Blood thinner. The patient is not on a blood thinning medication. 7. Opioids. The patient received medication from one source the Pain Clinic. 8. Risk assessment tool, moderate for opioid use. 9. Functional assessment tool, 56/70. 10. Recreational drug use: The patient denies. 11. Tobacco: The patient denies. 12. Alcohol. The patient denies use of alcoholic beverages. PHYSICAL EXAMINATION: GENERAL: The patient is a well-developed, well-nourished black female. She appears her stated age. She is alert and oriented x 3. Her affect is [facility] [address] [place] [address] PAIN MANAGEMENT CONSULTATION Name: VARUN ALAS Room #: REG [facility]#: [id number] Admission: 01/11/20 Attend Phys: Scooby Nathan MD Discharge: Date of : 59 Report #: [id number] appropriate. She feels somewhat ____ distress because of the loss of family members and friends recently. HEENT: Normocephalic, atraumatic. Extraocular eye muscles intact. Sclerae nonicteric. The patient is less tearful at this juncture. She is wearing a facial covering. Does complain of pain in her shoulders and arms. HEART: Regular rate. LUNGS: Clear. ABDOMEN: Nontender. MUSCULOSKELETAL: The patient without significant scoliosis, kyphosis or lordosis. The patient has some decreased range of motion in her neck and in the upper extremities. The patient has some pain and discomfort in the left hand in the area of the thumb. Notes that there is a pinpoint area at the base of her thumb that is quite painful and uncomfortable. The patient has pain in the lower portion of her back in the L5-S1 dermatomal distribution. IMPRESSION: 1. History of lumbar radiculopathy. 2. History of cervical fusion with instrumentation. 3. Chronic low back pain. 4. Chronic medical management of pain using opioids. 5. Pain and discomfort in the right thumb in the area at the base near a sesamoid bone. RECOMMENDATIONS: We discussed treatment options with the patient. An x-ray of her hand did show some ____ at the base of the thumb in the area of a sesamoid bone. Palpation in this area reproduced the patient's pain and discomfort. At this juncture, we will continue with her current medical management. A script for her medications have been written and sent to her pharmacy. She will continue with Percocet 10 mg 1 p.o. q.i.d. 120 tablets. She will also continue with OxyContin b.i.d. She will call us if she has any concerns. Possibility of an injection at the base of the thumb has been provided for her if she chooses in the future. We would like to thank you for letting us participate in her care. We hope she continues to improve. We had talked about use of Voltaren gel to the affected area as an option as well. By: [id number] Scooby Nathan MD /selena
[2020-01-11 10:25] VITALS: BP 106/63
--- NOTE | 2020-01-11 10:29 | NUR ---
Pain Clinic Assessment: 1. History of Osteoarthritis: NECK BACK SHOULDERS KNEES FEET History of Rheumatoid Arthritis: NO 2. Height: 5 ft. 2 in. 157.5 cm. Weight: 210.0 lb. oz. 95.256 kg. Patient's BMI: 38.4 3. Vital Signs: BP: 106/63 Pulse: 89 Resp: 18 Temp: 02 Sat: 96 ECG Mon: 4. Pain Intensity: 9 5. Fall Risk: Dizziness: N Needs help standing or walking: N Fallen in the last 3 months: N Fall risk comments: 6. Patient on Blood Thinner: None 7. History of Hypertension: Y 8. Opioid Therapy greater than 6 weeks: Y Opiate Contract Signed: 10/24/15 9. Risk Assessment Tool Provided: low risk-0 10. Functional Assessment Tool: 11. Recreational Drug Use: Never Drug Type: Tobacco Use: Never Smoker Tobacco Type: Amount or Packs/day: How Many Years: Alcohol Use: No Frequency: Quant:
== END ==
LOC: PAIN 06:55
PROVIDERS: ATTEND Anesthesiology Pain Medicine
DX: M54.2 Cervicalgia (principal); M54.9 Dorsalgia, unspecified; F11.20 Opioid dependence, uncomplicated; M79.644 Pain in right finger(s); Z87.39 Personal history of other diseases of the musculoskeletal system and connective tissue

== ENCOUNTER → 2020-02-08 | Outpatient (CLI) | payer OTHER | LOC: TELEPC 06:51 → PAIN 10:31 → TELEPC 11:08 | PROVIDERS: ATTEND Anesthesiology Pain Medicine | DX: G89.29 Other chronic pain (principal); M54.5 Low back pain; U07.1 COVID-19; I10 Essential (primary) hypertension; J45.909 Unspecified asthma, uncomplicated; Z68.30 Body mass index [BMI] 30.0-30.9, adult; Z79.899 Other long term (current) drug therapy; Z79.891 Long term (current) use of opiate analgesic ==

== ENCOUNTER → 2020-03-12 | Outpatient (CLI) | payer OTHER | LOC: PAIN 06:58 → TELEPC 06:58 → PAIN 12:48 | PROVIDERS: ATTEND Anesthesiology Pain Medicine | DX: M54.5 Low back pain (principal); M54.2 Cervicalgia; M54.9 Dorsalgia, unspecified; F11.20 Opioid dependence, uncomplicated; U07.1 COVID-19 ==

== ENCOUNTER → 2020-04-09 | Outpatient (CLI) | payer OTHER | LOC: TELEPC 06:49 | PROVIDERS: ATTEND Anesthesiology Pain Medicine | DX: U07.1 COVID-19 (principal); F11.20 Opioid dependence, uncomplicated; Z87.39 Personal history of other diseases of the musculoskeletal system and connective tissue; Z88.8 Allergy status to other drugs, medicaments and biological substances; Z79.899 Other long term (current) drug therapy ==

== ENCOUNTER → 2020-05-07 | Outpatient (CLI) | payer OTHER ==
--- NOTE | 2020-05-08 07:42 | HPC ---
[facility] [place] [address] PAIN MANAGEMENT CONSULTATION Name: VARUN ALAS Room #: REG [facility]..#: [id number] Admission: 05/07/20 Attend Phys: Fina Hammonds Discharge: Date of : 59 Report #: [id number] THIS REPORT FOR: cc: DAPHNE RICHARDS MD, RACHEL MD Hocker,Fina GUAJARDO ~ DATE OF SERVICE: 05/07/2020 This is a Telemed appointment that the patient has consented for speaking with her on the phone from 10-10:18. The nurse spoke prior to and obtained consent for this Telemed appointment. She has been recovering from the COVID virus and was hospitalized. CHIEF COMPLAINT: Neck pain, low back pain, lumbar radiculopathy. HISTORY OF PRESENT ILLNESS: This is a 65-year-old female who I am speaking via the telephone. The patient has still been recovering from COVID-19. She was hospitalized and has had complications of pneumonia. She reports to me being on 2 liters of oxygen at all times and then it does increase when she is active. Today, the patient is reporting a pain score of 8-1/2. She does report her pain is usually worse in the morning and then does subside later in the day. She finds the pain medications are very beneficial in helping control her pain. Today, she is reporting that her neck and shoulders are most problematic as well as her legs. She has been having significant swelling in her shins and that has been very painful as well. She also reports her right leg appears to be weak. She has not fallen, though she does utilize a cane at all times now. The patient does report having home physical therapy. She has a stepper that she uses twice a day and feels that has been helping her build her endurance and strength. She is hopeful that she will continue to improve. She does state she does have a hotel casino floorperson visit with an echo planned on 05/15/2020. She is hopeful to return to the office for her next appointment for sure by the following month. Today, she would like her medications renewed that we provide for her. ALLERGIES: No known drug intolerances. CURRENT LIST OF MEDICATIONS: Lisinopril, albuterol, aspirin, Advair, Protonix, amitriptyline, OxyContin 20 mg b.i.d., oxycodone p.r.n., Lyrica, and tizanidine. PATIENT'S PQRS: 1. She has osteoarthritic changes in her neck, back, shoulders, knees and feet. Denies any rheumatoid arthritis. 2. Height, weight and vital signs are deferred due to a Telemed appointment. Her pain score is 8-1/2. 3. She does have hypertension. She is not on any blood thinners. 4. Her functional assessment is 56/70. Her opioid risk assessment is low. [address] [address] PAIN MANAGEMENT CONSULTATION Name: VARUN ALAS Room #: REG [facility] Solange#: [id number] Admission: 05/07/20 Attend Phys: Fina Hammonds Discharge: Date of : 59 Report #: [id number] 5. Tobacco use, she denies. Recreational drugs, she denies as well as alcohol. She reports no falls. Does utilize a cane at all times. PHYSICAL EXAMINATION: This is a review of systems. She has shortness of breath with talking to me today on 2 liters of nasal cannula. Complains of back pain, shoulder pain and neck pain. Also complains of 2-3+ swelling in her shins that extends to her ankles, which does cause increased pain. According to the prescription monitoring system, the patient is due to fill her medications today. She is filling them appropriately for her medications. Her morphine milliequivalent is 120 MMEs. IMPRESSION: 1. COVID-19 positive, still recovering, on supplemental oxygen. 2. Lumbar radiculopathy. 3. History of cervical fusion with cervical radiculopathy. 4. Chronic low back pain. 5. Edema, on diuretics. 6. Chronic medical management utilizing opioid medications. PLAN: 1. We discussed treatment options with the patient today. The patient finds her medications very beneficial of OxyContin and oxycodone. She would like refills of those medications today. We will have Dr. Jim Nathan send those electronically to her pharmacy; he did collaborate care today. 2. The patient is not in need of her Lyrica, amitriptyline, and tizanidine. She obtains these through pill pack. We will refill those at her next appointment. 3. The patient currently is not considering the COVID vaccine. Her hotel casino floorperson and remote control mirror installer want her to wait until she is healthier. The patient is hopeful that she will be able to come to an appointment in our clinic at the next monthly visit. She feels that she is continuing to do her exercises at home through physical therapy to strengthen herself. She would like to come and see us. She also reports that will help her mood. She has been slightly depressed by staying home. Time spent with the patient via the telephone for consultation was 18 minutes. Time spent reviewing the chart prior to my call for any pertinent medical documentation, reviewing prescription drug monitoring systems, prior records, sending medications electronically and documentation an additional 15 minutes. Total time spent 33 minutes. <ELECTRONICALLY SIGNED> By: Fina Hammonds 05/08/20 0742 [id number] Fina Hammonds /nt
== END ==
LOC: TELEPC 06:41 → PAIN 12:14 → TELEPC 13:57
PROVIDERS: ATTEND Clinical Nurse Specialist Adult Health
DX: M54.16 Radiculopathy, lumbar region (principal); R60.0 Localized edema; F11.20 Opioid dependence, uncomplicated; U07.1 COVID-19; Z87.39 Personal history of other diseases of the musculoskeletal system and connective tissue; Z88.8 Allergy status to other drugs, medicaments and biological substances; Z79.899 Other long term (current) drug therapy

== ENCOUNTER → 2020-06-04 | Outpatient (CLI) | payer OTHER ==
[~2020-06-04] VITALS: Ht 157.5 cm; Wt 96.7 kg
[2020-06-04 12:46] VITALS: BP 137/97
--- NOTE | 2020-06-04 13:05 | NUR ---
Pain Clinic Assessment: 1. History of Osteoarthritis: NECK BACK SHOULDERS KNEES FEET History of Rheumatoid Arthritis: NO 2. Height: 5 ft. 2 in. 157.5 cm. Weight: 213.2 lb. oz. 96.707 kg. Patient's BMI: 39.0 3. Vital Signs: BP: 137/97 Pulse: 88 Resp: 16 Temp: 02 Sat: 100 ECG Mon: 4. Pain Intensity: 8 5. Fall Risk: Dizziness: N Needs help standing or walking: N Fallen in the last 3 months: N Fall risk comments: 6. Patient on Blood Thinner: None 7. History of Hypertension: Y 8. Opioid Therapy greater than 6 weeks: Y Opiate Contract Signed: 10/24/15 9. Risk Assessment Tool Provided: low risk-0 10. Functional Assessment Tool: 11. Recreational Drug Use: Never Drug Type: Tobacco Use: Never Smoker Tobacco Type: Amount or Packs/day: How Many Years: Alcohol Use: No Frequency: Quant:
== END ==
LOC: PAIN 06:59
PROVIDERS: ATTEND Anesthesiology Pain Medicine
DX: M54.2 Cervicalgia (principal); M25.561 Pain in right knee; M25.562 Pain in left knee; M79.601 Pain in right arm; G89.29 Other chronic pain; M43.22 Fusion of spine, cervical region; F11.20 Opioid dependence, uncomplicated; Z87.39 Personal history of other diseases of the musculoskeletal system and connective tissue; Z86.16 Personal history of COVID-19; Z79.899 Other long term (current) drug therapy

== ENCOUNTER → 2020-07-04 | Outpatient (CLI) | payer OTHER ==
[~2020-07-04] VITALS: Ht 157.5 cm; Wt 97.7 kg
[2020-07-04 10:10] VITALS: BP 122/73
--- NOTE | 2020-07-04 10:19 | NUR ---
Pain Clinic Assessment: 1. History of Osteoarthritis: NECK BACK SHOULDERS KNEES FEET History of Rheumatoid Arthritis: NO 2. Height: 5 ft. 2 in. 157.5 cm. Weight: 215.4 lb. oz. 97.705 kg. Patient's BMI: 39.4 3. Vital Signs: BP: 122/73 Pulse: 83 Resp: 20 Temp: 02 Sat: 96 ECG Mon: 4. Pain Intensity: 10 5. Fall Risk: Dizziness: N Needs help standing or walking: Y Fallen in the last 3 months: N Fall risk comments: 6. Patient on Blood Thinner: None 7. History of Hypertension: Y 8. Opioid Therapy greater than 6 weeks: Y Opiate Contract Signed: 10/24/15 9. Risk Assessment Tool Provided: low risk-0 10. Functional Assessment Tool: 11. Recreational Drug Use: Never Drug Type: Tobacco Use: Never Smoker Tobacco Type: Amount or Packs/day: How Many Years: Alcohol Use: No Frequency: Quant:
== END ==
LOC: PAIN 08:14
PROVIDERS: ATTEND Anesthesiology Pain Medicine
DX: Z76.0 Encounter for issue of repeat prescription (principal); M54.2 Cervicalgia; M54.9 Dorsalgia, unspecified; M25.511 Pain in right shoulder; I10 Essential (primary) hypertension; J45.909 Unspecified asthma, uncomplicated; K21.9 Gastro-esophageal reflux disease without esophagitis; M54.16 Radiculopathy, lumbar region; Z79.82 Long term (current) use of aspirin; Z79.899 Other long term (current) drug therapy; Z86.16 Personal history of COVID-19; Z79.891 Long term (current) use of opiate analgesic

== ENCOUNTER → 2020-07-30 | Outpatient (CLI) | payer OTHER ==
[~2020-07-30] VITALS: Ht 157.5 cm; Wt 94.9 kg
[2020-07-30 10:31] VITALS: BP 134/86
--- NOTE | 2020-07-30 11:00 | NUR ---
Pain Clinic Assessment: 1. History of Osteoarthritis: NECK BACK SHOULDERS KNEES FEET History of Rheumatoid Arthritis: NO 2. Height: 5 ft. 2 in. 157.5 cm. Weight: 209.2 lb. oz. 94.893 kg. Patient's BMI: 38.3 3. Vital Signs: BP: 134/86 Pulse: 106 Resp: 16 Temp: 02 Sat: 96 ECG Mon: 4. Pain Intensity: 9 W/ACTIVITY 5. Fall Risk: Dizziness: N Needs help standing or walking: Y Fallen in the last 3 months: N Fall risk comments: 6. Patient on Blood Thinner: None 7. History of Hypertension: Y 8. Opioid Therapy greater than 6 weeks: Y Opiate Contract Signed: 10/24/15 9. Risk Assessment Tool Provided: low risk-0 10. Functional Assessment Tool: 11. Recreational Drug Use: Never Drug Type: Tobacco Use: Never Smoker Tobacco Type: Amount or Packs/day: How Many Years: Alcohol Use: No Frequency: Quant:
--- NOTE | 2020-07-31 07:09 | HPC ---
[facility] [place] [address] PAIN MANAGEMENT CONSULTATION Name: VARUN ALAS Room #: REG [facility] M..#: [id number] Admission: 07/30/20 Attend Phys: Fina Hammonds Discharge: Date of : 59 Report #: [id number] THIS REPORT FOR: cc: JUHI RICHARDS MD, RACHEL MD Hocker,Fina GUAJARDO ~ DOC #: [id number] cc: Suki Nathan MD, Juhi Hammonds, SULY DATE OF SERVICE: 07/30/2020 CHIEF COMPLAINT: Cervical radiculopathy, low back pain, and right foot, ankle pain. HISTORY OF PRESENT ILLNESS: As you know, this is a 65-year-old female who returns to the pain clinic today for renewal of her opioid medications. Today, she is reporting pain score at 9/10 that is significantly high with activity related to a new injury in her right ankle. Today, she reports possibly tearing her ligament in her right ankle and is scheduled to have an MRI on August 07. She does have this in a brace today and is utilizing a cane. She states that her pain is a sharp stabbing sensation in her right leg. She also has ongoing neck and mid back issues. Today, she would like renewals of her OxyContin and oxycodone. Varun also reports continuing issues with shortness of breath. She recently saw her liner worker at [employer] and is awaiting a new concentrator to be delivered. She does wear oxygen at home, especially when she is at rest, where she tends to have desaturation of her oxygen levels. She does have shortness of breath with some exertion, though currently her breathing is stable. ALLERGIES: No known drug allergies. CURRENT LIST OF MEDICATIONS: Lyrica 100 mg 3 times a day, tizanidine, oxycodone 10/325 q.i.d. p.r.n., OxyContin 20 mg b.i.d., amitriptyline, Protonix, Advair, aspirin, albuterol, and lisinopril. PQRS: 1. She has osteoarthritic changes in her neck, back, shoulders, and knees. Denies any rheumatoid arthritis. Height is 5 feet 2 inches, weight is 209. BMI is 38. Vital signs 134/86, pulse is 106, respirations 16, oxygen sat is 96%. 2. Pain score is 9 with activity. 3. Denies dizziness. Does utilize a cane today for ambulation and has not fallen in the last 3 months. 4. The patient is not on blood thinners, but does take medicine for hypertension. 5. Opioid therapy is greater than six weeks; therefore, an opioid signed [address] [address] PAIN MANAGEMENT CONSULTATION Name: VARUN ALAS Room #: REG [facility] Solange#: [id number] Admission: 07/30/20 Attend Phys: Fina Hammonds Discharge: Date of : 59 Report #: [id number] contract is on the chart. Risk assessment is low. Functional assessment 56/70. 6. Recreational drug use, she denies. She is not a smoker and does not drink alcohol. According to the prescription monitoring system, she is filling appropriately in a timely fashion. She is due to fill her medications today. There is a recent drug screen on the chart that is appropriate as well. PHYSICAL EXAMINATION: GENERAL: This is a well-developed, well-nourished, slightly obese black female. She is alert and oriented and appears her stated age, rating her pain score today at 9/10. HEENT: Normocephalic, atraumatic. Extraocular eye muscles are intact. She is wearing a facial covered. NECK: Without adenopathy or JVD, but does have decreased range of motion in her cervical spine due to previous surgeries with a well-healed scar. Upper extremity strength is judged to be 4/5 in all major muscle groups. LUNGS: Clear with shortness of breath. MUSCULOSKELETAL: The patient is without significant scoliosis, kyphosis, or lordosis. Discomfort in the lower back and pain radiating down her legs bilaterally. Significant pain in her right ankle, in a walking boot today. No lower extremity edema noted. IMPRESSION: 1. History of lumbar radiculopathy. 2. History of cervical fusion with instrumentation. 3. Cervical radiculopathy. 4. Chronic low back pain. 5. Right ankle pain. 6. Complex medical management utilizing scheduled opioid medications. We reviewed the fact that opiate medications are being used to provide analgesia adequate to support activities of daily living, not attempting to achieve a specific pain score on the 0-10 Visual Analog Scale. The current opiate medications are providing sufficient analgesia to allow the patient to participate in activities of daily living. The patient is not exhibiting any aberrant behavior suggestive of drug diversion. The patient is not having any adverse reactions to medications. The patient is not suffering from daytime somnolence or mental acuity changes. The patient is managing opiate-induced constipation with appropriate [id number]-rhlgice agents and dietary considerations. The patient was counseled on concern for caution with operating a motor vehicle while using opiate medications. PLAN: 1. We discussed treatment options with the patient today. The patient is complaining of significant increased stabbing sensation in her lower extremity [address] [place] [address] PAIN MANAGEMENT CONSULTATION Name: VARUN ALAS Room #: REG [facility]..#: [id number] Admission: 07/30/20 Attend Phys: Fina CASANDRA Hammonds Discharge: Date of : 59 Report #: [id number] and increased neuropathy pain. She is wearing a boot, which is altering her gait. I do not want to increase her Lyrica due to some edema that she does experience at time from that medication. We will try to elevate her amitriptyline slightly 50 mg at bedtime to see if this helps decrease some of her pain. I encouraged the patient to try this for at least a week and if it is not beneficial in decreasing her pain and to return to her 25 mg. Otherwise, she may resume 50 mg at bedtime. We did discuss the side effects of dry mouth and somnolence of this medication. 2. We will continue her on her OxyContin 20 mg 1 p.o. b.i.d., #60 and Percocet 10/325, #120. These will be sent electronically to her local pharmacy for refill. 3. The patient will return in followup in 1 month. Time spent with the patient in consultation, reviewing recent studies and clinical notes and physician reports, physical examination and correlation of findings and medical documentation to determine possible treatment options 15 minutes. Time spent preparing for appointment reviewing prescription, monitoring system reports, reviewing previous records and proposed treatment options and reviewing current medications 5 minutes. Time spent preparing and sending electronic prescriptions with collaborating physician, Dr. Jim Nathan, documentation of visit and plan of treatment 5 minutes. Total time spent 25 minutes. SULY Chambers/PIEDAD/TONO <ELECTRONICALLY SIGNED> By: Fina Hammonds 07/31/20 0709 [id number] Fina Hammonds /nt
== END ==
LOC: PAIN 07:09
PROVIDERS: ATTEND Clinical Nurse Specialist Adult Health
DX: M54.12 Radiculopathy, cervical region (principal); M25.571 Pain in right ankle and joints of right foot; M79.671 Pain in right foot; Z79.891 Long term (current) use of opiate analgesic; Z79.899 Other long term (current) drug therapy

== ENCOUNTER → 2020-08-27 | Outpatient (CLI) | payer OTHER ==
[~2020-08-27] VITALS: Ht 157.5 cm; Wt 94.3 kg
[~2020-08-27] MED LIST changes: +ELDERBERRY-VIT1 EACH PO
--- NOTE | 2020-08-27 10:30 | NUR ---
Pain Clinic Assessment: 1. History of Osteoarthritis: NECK BACK SHOULDERS KNEES FEET History of Rheumatoid Arthritis: NO 2. Height: ft. in. cm. Weight: lb. oz. kg. Patient's BMI: 3. Vital Signs: BP: Pulse: Resp: Temp: 02 Sat: ECG Mon: 4. Pain Intensity: 8 W/ACTIVITY 5. Fall Risk: Dizziness: N Needs help standing or walking: N Fallen in the last 3 months: N Fall risk comments: NO COVID VACCINE 6. Patient on Blood Thinner: None 7. History of Hypertension: Y 8. Opioid Therapy greater than 6 weeks: Y Opiate Contract Signed: 10/24/15 9. Risk Assessment Tool Provided: low risk-0 10. Functional Assessment Tool: 11. Recreational Drug Use: Never Drug Type: Tobacco Use: Never Smoker Tobacco Type: Amount or Packs/day: How Many Years: Alcohol Use: No Frequency: Quant:
[2020-08-27 10:33] VITALS: BP 110/72
--- NOTE | 2020-08-28 08:28 | HPC ---
[facility] [place] [address] PAIN MANAGEMENT CONSULTATION Name: VARUN ALAS Room #: REG [facility] M..#: [id number] Admission: 08/27/20 Attend Phys: Fina Hammonds Discharge: Date of : 59 Report #: [id number] THIS REPORT FOR: cc: DAPHNE RICHARDS MD, RACHEL MD Hocker,Fina GUAJARDO ~ DOC #: [id number] cc: MD Fina Arriaga, PHOTOGRAPH[employer] DATE OF SERVICE: 08/27/2020 CHIEF COMPLAINT: Chronic cervical radiculopathy, low back pain and right ankle pain. HISTORY OF PRESENT ILLNESS: This is a 65-year-old female who returns to the pain clinic today for renewal of her medications and to discuss her ongoing ankle pain. The patient reports that she recently saw her orthopedist who ordered an MRI. Fortunately, she does not have Achilles tendon tear. It is just inflamed with significant osteoarthritis in her ankle. She has brought her MRI and x-rays with her today. She does report to me they gave her a prescription for Relafen, but is very concerned about taking the entire dose that they have prescribed due to her gastric reflux that she experiences, and she is wondering about that medication for her. They also have encouraged her to start physical therapy and she is no longer required to wear a boot at all times. The patient continues to have ongoing cervical radiculopathy as well as mid back pain and bilateral knee pain. Today, she rates her pain as 8/10 with activity. Describes it as an aching, sharp, stabbing sensation that is worse with getting up on the chair, weightbearing on her ankle, and significant walking and standing. Overall, she does believe the medications are beneficial in helping reduce some of her pain. Today, she is not wearing oxygen here in our clinic and she is not utilizing her cane. ALLERGIES: No known drug allergies. CURRENT LIST OF MEDICATIONS: Elderberry with vitamin C, Percocet, OxyContin, Lyrica, tizanidine, amitriptyline, Protonix, Advair, aspirin, albuterol, lisinopril. PQRS: 1. She has osteoarthritic changes in her neck, back, shoulders and feet. Denies any rheumatoid arthritis. 2. Height is 5 feet 2 inches, weight is 207. 3. Vital signs 110/72, pulse is 82, respirations 16, oxygen sat is 100%. 4. Pain score is 8 with activity. [facility] [address] [place] [address] PAIN MANAGEMENT CONSULTATION Name: VARUN ALAS Room #: REG [facility].#: [id number] Admission: 08/27/20 Attend Phys: Fina Hammonds Discharge: Date of : 59 Report #: [id number] 5. Denies dizziness, does not need help walking, has not fallen in the last 3 months. 6. The patient is not on any blood thinners, does take medicine for hypertension. 7. Opioid therapy is greater than 6 weeks; therefore, an opioid signed contract is on the chart. 8. Risk Assessment: Low. 9. Functional Assessment: 56/70. 10. Recreational drug use, she denies. She is not a smoker and does not drink alcohol. According to the prescription monitoring system the patient is due to fill her medications today, filling in a timely fashion from only 1 prescriber. Her MME is 120. PHYSICAL EXAMINATION: GENERAL: This is a well-developed, well-nourished [place], slightly obese, who is rating her pain score at 8/10. She is a good historian and her speech is fluent. HEENT: Normocephalic, atraumatic. Extraocular muscles are intact. She is wearing a facial covering. NECK: Without adenopathy or JVD. She does have decreased range of motion from previous surgeries in her cervical spine, especially in the flexion and extension planes. EXTREMITIES: Upper extremity strength is symmetrical at 5/5. LUNGS: Without shortness of breath today. MUSCULOSKELETAL: The patient is without significant scoliosis, kyphosis, or lordosis. She has tenderness in her lumbar region that radiates into her legs bilaterally, greater on the right; pain in her right ankle. No edema noted today. Pain increases with weightbearing. She has an antalgic gait. IMPRESSION: 1. History of lumbar radiculopathy. 2. History of cervical fusion with instrumentation. 3. Cervical radiculopathy. 4. Chronic low back pain. 5. Right ankle pain with mild Achilles tendinosis. 6. Complex medical management utilizing scheduled opioid medications. PLAN: 1. We discussed treatment options with the patient today. The patient has brought with her this script for Relafen 750 mg 2 tablets twice a day from her orthopedist. The patient is worried with her GI reflux that she will not be able to tolerate this medication. I encouraged her to take at least 2 tablets a day with her Protonix and then utilize Voltaren gel to her ankle, twice a day and continue all the medications that her orthopedic doctor has prescribed for [address] [address] PAIN MANAGEMENT CONSULTATION Name: VARUN ALAS Room #: REG [facility]#: [id number] Admission: 08/27/20 Attend Phys: Fina Hammonds Discharge: Date of : 59 Report #: [id number] her. The patient will attempt that and hopefully she will not experience significant GI issues that will cause her to stop that medication. The patient will start physical therapy as well to hopefully aid in strengthening her right ankle. She is not using a cane today, but does utilize that when her pain is increased in her ankle. 2. We will continue her on her OxyContin 20 mg b.i.d. and oxycodone 10/325 #120. These medications will be sent electronically by Dr. Nathan. 3. The patient does state she tried Elavil 50 mg at bedtime to see if this helped with some of her sleeping and some pain she was experiencing. Unfortunately, she was too sedate with this medication. She even attempted to move it earlier in the evening that did cause her "hangover feeling in the morning." The patient will continue at 25 mg at bedtime. 4. The patient will return in 1 month for followup. Time spent with the patient in consultation, reviewing pertinent imaging, reviewing recent studies and clinical notes and physician reports, physical examination and correlation of findings and medical documentation to determine possible treatment options - 16 minutes. Time spent in preparation for appointment, reviewing prescription monitoring reports, reviewing previous records and proposed treatment options, reviewing recent current medications - 5 minutes. Time spent with preparing and sending electronic prescriptions with collaborating physician, Dr. Scooby Nathan, documentation of visit and plan of treatment - 5 minutes. Total time spent - 26 minutes. SULY Chambers/BUCK <ELECTRONICALLY SIGNED> By: Fina Hammonds 08/28/20 0828 [id number] Fina Hammonds /nt
== END ==
LOC: PAIN 07:06
PROVIDERS: ATTEND Clinical Nurse Specialist Adult Health
DX: M54.16 Radiculopathy, lumbar region (principal); M54.12 Radiculopathy, cervical region; G89.29 Other chronic pain; M76.61 Achilles tendinitis, right leg; Z79.891 Long term (current) use of opiate analgesic; Z79.899 Other long term (current) drug therapy

== ENCOUNTER → 2020-09-24 | Outpatient (CLI) | payer OTHER ==
[~2020-09-24] VITALS: Ht 157.5 cm; Wt 95.2 kg
[2020-09-24 11:15] VITALS: BP 102/67
--- NOTE | 2020-09-24 12:50 | NUR ---
Pain Clinic Assessment: 1. History of Osteoarthritis: NECK BACK SHOULDERS KNEES FEET History of Rheumatoid Arthritis: NO 2. Height: 5 ft. 2 in. 157.5 cm. Weight: 209.8 lb. oz. 95.165 kg. Patient's BMI: 38.4 3. Vital Signs: BP: 102/67 Pulse: 88 Resp: 16 Temp: 02 Sat: 100 ECG Mon: 4. Pain Intensity: 8 5. Fall Risk: Dizziness: N Needs help standing or walking: N Fallen in the last 3 months: N Fall risk comments: NO COVID VACCINE 6. Patient on Blood Thinner: None 7. History of Hypertension: Y 8. Opioid Therapy greater than 6 weeks: Y Opiate Contract Signed: 10/24/15 9. Risk Assessment Tool Provided: low risk-0 10. Functional Assessment Tool: 11. Recreational Drug Use: Never Drug Type: Tobacco Use: Never Smoker Tobacco Type: Amount or Packs/day: How Many Years: Alcohol Use: No Frequency: Quant:
--- NOTE | 2020-09-25 13:23 | HPC ---
[facility] [place], [place] [address] [place] [address] PAIN MANAGEMENT CONSULTATION Name: VARUN ALAS Room #: [facility]..#: [id number] Admission: 09/24/20 Attend Phys: Fina Hammonds Discharge: Date of : 59 Report #: [id number] THIS REPORT FOR: cc: DAPHNE RICHARDS MD, RACHEL MD Hocker,Fina GUAJARDO ~ cc: Suki Nathan MD DATE OF SERVICE: 09/24/2020 CHIEF COMPLAINT: Chronic cervical radiculopathy, low back pain, and right ankle pain. HISTORY OF PRESENT ILLNESS: This is a 65-year-old female who returns to the pain clinic today to discuss her multiple pain generators. Today, since the patient is reporting the most problematic area in her left ankle. She reports she was unable to take her Relafen at the lead application architect's order to help decrease some of her inflammation. She reports having a side effect of almost hallucinating and very lethargic, taking this medication. She reports taking it at bedtime. She is scheduled to start physical therapy next week and is hopeful that the ultrasound treatments on her ankle will be beneficial in decreasing her pain. She does report that she has recently started using pink Himalayan salts on her right ankle and has found that beneficial utilizing it 2-3 times a week. The patient also complains of her ongoing neck pain and low back pain. She describes this as a burning, stabbing sensation, rating her pain score an 8/10 today. Pain is worse with activity and standing. She denies any constipation issues or daytime somnolence as a result of her opioid medications. ALLERGIES: No known drug allergies. CURRENT LIST OF MEDICATIONS: Elderberry with vitamin C, Percocet, OxyContin, Lyrica, tizanidine, amitriptyline, Protonix, Advair, aspirin, albuterol, lisinopril. :PQRS 1. She has osteoarthritic changes in her neck, back, shoulders, feet and knees. Denies any rheumatoid arthritis. 2. Height is 5 feet 2 inches, weight is 209. BMI is 38. 3. Vital signs: Blood pressure 102/67, respirations are 16, oxygen levels are 100%, pulse is 88. The patient's pain score is 8/10. 4. Fall risk, denies dizziness, does not need assistance with ambulation, has not fallen in the last 3 months. 5. The patient is not on any blood thinners. She does have a history of hypertension, though not today. Her blood pressure is low for her. 6. Opioid therapy is greater than 6 weeks; therefore, an opioid signed contract is on the chart. Risk assessment is low. Functional assessment: 56/70. [address] [address] PAIN MANAGEMENT CONSULTATION Name: VARUN ALAS Room #: REG [facility]#: [id number] Admission: 09/24/20 Attend Phys: Fina Hammonds Discharge: Date of : 59 Report #: [id number] 7. Recreational drug use, she denies. She is not a smoker and does not drink alcohol. According to the prescription monitoring system, the patient is due to fill her medications today, filling them in a timely fashion. Her morphine milliequivalent is 120 MME. She is followed on a monthly basis here in the pain clinic. We will check a random drug screen on her at her next visit. I believe it has been a year since her last one was performed. PHYSICAL EXAMINATION: GENERAL: This is a well-developed, well-nourished, slightly obese, -[place] 65-year-old, who appears her stated age, rating her pain score at 8/10 today. She is a good historian. HEENT: Normocephalic, atraumatic. Extraocular eye muscles are intact. She is wearing a facial mask. NECK: Without adenopathy or JVD. MUSCULOSKELETAL: She has well-healed surgical scars, pain is worse with flexion and extension and she has decreased motion in her cervical region due to previous surgeries. Extremities: Tenderness in her right ankle. No edema noted. Pain is increased with weightbearing. The patient is without significant scoliosis, kyphosis, or lordosis. She has tenderness in the lumbosacral region that radiates into her legs bilaterally. She has an antalgic gait. IMPRESSION: 1. History of lumbar radiculopathy. 2. History of cervical fusion with instrumentation. 3. Cervical radiculopathy. 4. Chronic low back pain. 5. Ongoing right ankle pain, undergoing treatment. 6. Complex medical management utilizing scheduled opioid medications. We reviewed the fact that opiate medications are being used to provide analgesia adequate to support activities of daily living, not attempting to achieve a specific pain score on the 0-10 Visual Analog Scale. The current opiate medications are providing sufficient analgesia to allow the patient to participate in activities of daily living. The patient is not exhibiting any aberrant behavior suggestive of drug diversion. The patient is not having any adverse reactions to medications. The patient is not suffering from daytime somnolence or mental acuity changes. The patient is managing opiate-induced constipation with appropriate adxb-exf-gopisgu agents and dietary considerations. The patient was counseled on concern for caution with operating a motor vehicle while using opiate medications. A physical exam was performed and the patient's functional status was evaluated. All patients with back pain were advised against the bed rest greater than [address] [facility] [place] [place] [address] [place] [address] PAIN MANAGEMENT CONSULTATION Name: VARUN ALAS Room #: [facility]..#: [id number] Admission: 09/24/20 Attend Phys: Fina Hammonds Discharge: Date of : 59 Report #: [id number] days and were advised to return to normal activities. Pain score assessment was noted and the treatment plan was reviewed with the patient. All current medications, both prescribed and OTC were reviewed and reconciled on the electronic medical record. Tobacco screening was accomplished and smoking cessation was advised when indicated. BMI was noted and diet/exercise modification was recommended for all patients following outside normal parameters. I reviewed with the patient today their responsibilities to safeguard prescription medications, reviewed their responsibility to utilize medications only as prescribed by the physician. They are to seek and receive pain medications only from 1 physician group ([facility]). They are to use 1 pharmacy and keep the clinic informed if they change pharmacies. Their responsibilities include making followup visits in a timely fashion and to avoid abrupt discontinuation of medication usage. Their responsibilities further include bringing their medications (bottles from the pharmacy with residual pills) to the visit for possible confirmation of pill counts and the patient understands it is their responsibility to submit to random drug screens to ensure both that the medications prescribed are present, and that no other controlled substances are present. All prescriptions provided today were generated electronically. PLAN: 1. We discussed her Voltaren gel and Relafen. Again, today, the patient reports side effects of hallucinating and very lethargic, taking that medication. I encouraged her not to take it with her tizanidine or her OxyContin products, to take it with food to see if this decreases any of her GI upset that she had had in the past, but the trial this medication again or continue her Voltaren gel to her right ankle and I encouraged her to complete all of her therapy as prescribed by her lead application architect. 2. We will continue her on her OxyContin 20 mg b.i.d. and oxycodone 10/325, #120.. These will be sent electronically by Dr. Nathan for one month and then patient will follow up. 3. The patient is encouraged to get the COVID vaccine. I spoke with her for several minutes regarding this and then Dr. Jim Nathan did come and talk to the patient as well and encouraged her to get the vaccine, even though she has had COVID virus and was hospitalized. The patient reports she will have at least the first dose prior to her next visit with us. Time spent with the patient in consultation, reviewing pertinent imaging and recent studies and clinical notes and physician reports, physical examination and correlation of findings and medical documentation to determine possible treatment options, 17 minutes. Total time spent in preparation for appointment reviewing prescription monitoring reports, reviewing previous records and proposed treatment options [address] [address] PAIN MANAGEMENT CONSULTATION Name: BISHOPVARUN ROCKY Room #: REG [facility]#: [id number] Admission: 09/24/20 Attend Phys: Fina Hammonds Discharge: Date of : 59 Report #: [id number] and reviewing current medications 5 minutes. Time spent preparing and sending electronic prescriptions with collaborating physician, Dr. Jim Nathan, documentation of visit and plan of care 5 minutes. Total time spent 27 minutes. <ELECTRONICALLY SIGNED> By: Fina Hammonds 09/25/20 [id number] [id number] Fina Hammonds /selena
== END ==
LOC: PAIN 11:00
PROVIDERS: ATTEND Clinical Nurse Specialist Adult Health
DX: M54.16 Radiculopathy, lumbar region (principal); M54.12 Radiculopathy, cervical region; G89.29 Other chronic pain; M25.571 Pain in right ankle and joints of right foot; Z79.891 Long term (current) use of opiate analgesic; Z79.899 Other long term (current) drug therapy

== ENCOUNTER → 2020-10-24 | Outpatient (CLI) | payer OTHER ==
[~2020-10-24] VITALS: Ht 157.5 cm; Wt 96.9 kg
[2020-10-24 10:24] VITALS: BP 126/89
--- NOTE | 2020-10-24 10:40 | NUR ---
Pain Clinic Assessment: 1. History of Osteoarthritis: NECK BACK SHOULDERS KNEES FEET History of Rheumatoid Arthritis: NO 2. Height: 5 ft. 2 in. 157.5 cm. Weight: 213.6 lb. oz. 96.888 kg. Patient's BMI: 39.1 3. Vital Signs: BP: 126/89 Pulse: 88 Resp: 20 Temp: 02 Sat: 100 ECG Mon: 4. Pain Intensity: 9 5. Fall Risk: Dizziness: N Needs help standing or walking: N Fallen in the last 3 months: N Fall risk comments: NO COVID VACCINE 6. Patient on Blood Thinner: None 7. History of Hypertension: Y 8. Opioid Therapy greater than 6 weeks: Y Opiate Contract Signed: 10/24/15 9. Risk Assessment Tool Provided: low risk-0 10. Functional Assessment Tool: 11. Recreational Drug Use: Never Drug Type: Tobacco Use: Never Smoker Tobacco Type: Amount or Packs/day: How Many Years: Alcohol Use: No Frequency: Quant:
== END ==
LOC: PAIN 09:24
PROVIDERS: ATTEND Anesthesiology Pain Medicine
DX: G89.29 Other chronic pain (principal); M54.5 Low back pain; M54.16 Radiculopathy, lumbar region; Z86.16 Personal history of COVID-19; Z79.891 Long term (current) use of opiate analgesic; Z79.899 Other long term (current) drug therapy

== ENCOUNTER → 2020-11-21 | Outpatient (CLI) | payer OTHER ==
[~2020-11-21] VITALS: Ht 157.5 cm; Wt 97.2 kg
[~2020-11-21] MED LIST changes: +TIZANIDINE HCL4 M2 PO
[2020-11-21 09:29] VITALS: BP 84/60
--- NOTE | 2020-11-21 09:50 | NUR ---
Pain Clinic Assessment: 1. History of Osteoarthritis: NECK BACK SHOULDERS KNEES FEET History of Rheumatoid Arthritis: NO 2. Height: 5 ft. 2 in. 157.5 cm. Weight: 214.2 lb. oz. 97.161 kg. Patient's BMI: 39.2 3. Vital Signs: BP: 84/60 Pulse: 92 Resp: 20 Temp: 02 Sat: 98 ECG Mon: 4. Pain Intensity: 9 5. Fall Risk: Dizziness: N Needs help standing or walking: N Fallen in the last 3 months: N Fall risk comments: NO COVID VACCINE 6. Patient on Blood Thinner: None 7. History of Hypertension: Y 8. Opioid Therapy greater than 6 weeks: Y Opiate Contract Signed: 10/24/20 9. Risk Assessment Tool Provided: low risk-0 10. Functional Assessment Tool: 11. Recreational Drug Use: Never Drug Type: Tobacco Use: Never Smoker Tobacco Type: Amount or Packs/day: How Many Years: Alcohol Use: No Frequency: Quant:
== END ==
LOC: PAIN 07:07
PROVIDERS: ATTEND Anesthesiology Pain Medicine
DX: G89.29 Other chronic pain (principal); M54.16 Radiculopathy, lumbar region; M43.22 Fusion of spine, cervical region; I10 Essential (primary) hypertension; K21.9 Gastro-esophageal reflux disease without esophagitis

== ENCOUNTER → 2020-12-17 | Outpatient (CLI) | payer OTHER ==
[~2020-12-17] VITALS: Ht 157.5 cm; Wt 99.3 kg
[2020-12-17 10:21] VITALS: BP 142/74
--- NOTE | 2020-12-17 10:25 | NUR ---
Pain Clinic Assessment: 1. History of Osteoarthritis: NECK BACK SHOULDERS KNEES FEET History of Rheumatoid Arthritis: NO 2. Height: 5 ft. 2 in. 157.5 cm. Weight: 219.0 lb. oz. 99.338 kg. Patient's BMI: 40.0 3. Vital Signs: BP: 142/74 Pulse: 101 Resp: 16 Temp: 02 Sat: 100 ECG Mon: 4. Pain Intensity: 9 5. Fall Risk: Dizziness: N Needs help standing or walking: N Fallen in the last 3 months: N Fall risk comments: NO COVID VACCINE 6. Patient on Blood Thinner: None 7. History of Hypertension: Y 8. Opioid Therapy greater than 6 weeks: Y Opiate Contract Signed: 10/24/20 9. Risk Assessment Tool Provided: low risk-0 10. Functional Assessment Tool: 11. Recreational Drug Use: Never Drug Type: Tobacco Use: Never Smoker Tobacco Type: Amount or Packs/day: How Many Years: Alcohol Use: No Frequency: Quant:
== END ==
LOC: PAIN 07:01
PROVIDERS: ATTEND Anesthesiology Pain Medicine
DX: M54.2 Cervicalgia (principal); G89.29 Other chronic pain; M79.671 Pain in right foot; I10 Essential (primary) hypertension; M54.50 Low back pain, unspecified; M54.16 Radiculopathy, lumbar region; Z79.82 Long term (current) use of aspirin; Z79.899 Other long term (current) drug therapy; Z86.16 Personal history of COVID-19

== ENCOUNTER → 2021-01-21 | Outpatient (CLI) | payer OTHER ==
[~2021-01-21] VITALS: Ht 157.5 cm; Wt 98.7 kg
[2021-01-21 10:53] VITALS: BP 134/81
--- NOTE | 2021-01-21 11:01 | NUR ---
Pain Clinic Assessment: 1. History of Osteoarthritis: NECK BACK SHOULDERS KNEES FEET History of Rheumatoid Arthritis: NO 2. Height: 5 ft. 2 in. 157.5 cm. Weight: 217.6 lb. oz. 98.703 kg. Patient's BMI: 39.8 3. Vital Signs: BP: 134/81 Pulse: 95 Resp: 20 Temp: 02 Sat: 99 ECG Mon: 4. Pain Intensity: 8 5. Fall Risk: Dizziness: N Needs help standing or walking: N Fallen in the last 3 months: Y Fall risk comments: NO COVID VACCINE 6. Patient on Blood Thinner: None 7. History of Hypertension: Y 8. Opioid Therapy greater than 6 weeks: Y Opiate Contract Signed: 10/24/20 9. Risk Assessment Tool Provided: low risk-0 10. Functional Assessment Tool: 11. Recreational Drug Use: Never Drug Type: Tobacco Use: Never Smoker Tobacco Type: Amount or Packs/day: How Many Years: Alcohol Use: No Frequency: Quant:
== END ==
LOC: PAIN 10:31
PROVIDERS: ATTEND Anesthesiology Pain Medicine
DX: M54.16 Radiculopathy, lumbar region (principal); M43.22 Fusion of spine, cervical region; G89.29 Other chronic pain; M79.671 Pain in right foot; I10 Essential (primary) hypertension; K21.9 Gastro-esophageal reflux disease without esophagitis; Z86.16 Personal history of COVID-19; Z79.899 Other long term (current) drug therapy

== ENCOUNTER → 2021-02-20 | Outpatient (CLI) | payer OTHER ==
[~2021-02-20] VITALS: Ht 157.5 cm; Wt 100.3 kg
[~2021-02-20] MED LIST changes: +AMITRIPTYLINE H25 M4 PO; +XTAMPZA ER18 MG PO
[2021-02-20 10:13] VITALS: BP 114/70
--- NOTE | 2021-02-20 10:17 | NUR ---
Pain Clinic Assessment: 1. History of Osteoarthritis: NECK BACK SHOULDERS KNEES FEET History of Rheumatoid Arthritis: NO 2. Height: 5 ft. 2 in. 157.5 cm. Weight: 221.2 lb. oz. 100.336 kg. Patient's BMI: 40.4 3. Vital Signs: BP: 114/70 Pulse: 86 Resp: 20 Temp: 02 Sat: 99 ECG Mon: 4. Pain Intensity: 9 5. Fall Risk: Dizziness: N Needs help standing or walking: N Fallen in the last 3 months: N Fall risk comments: NO COVID VACCINE 6. Patient on Blood Thinner: None 7. History of Hypertension: Y 8. Opioid Therapy greater than 6 weeks: Y Opiate Contract Signed: 10/24/20 9. Risk Assessment Tool Provided: low risk-0 10. Functional Assessment Tool: 11. Recreational Drug Use: Never Drug Type: Tobacco Use: Never Smoker Tobacco Type: Amount or Packs/day: How Many Years: Alcohol Use: No Frequency: Quant:
== END ==
LOC: PAIN 07:05
PROVIDERS: ATTEND Clinical Nurse Specialist Adult Health
DX: M54.12 Radiculopathy, cervical region (principal); M54.16 Radiculopathy, lumbar region; G89.29 Other chronic pain; M79.671 Pain in right foot; Z79.899 Other long term (current) drug therapy; Z79.82 Long term (current) use of aspirin

== ENCOUNTER → 2021-03-18 | Outpatient (CLI) | payer OTHER ==
[~2021-03-18] VITALS: Ht 157.5 cm; Wt 102.2 kg
[2021-03-18 10:38] VITALS: BP 125/82
--- NOTE | 2021-03-18 10:53 | NUR ---
Pain Clinic Assessment: 1. History of Osteoarthritis: NECK BACK SHOULDERS KNEES FEET History of Rheumatoid Arthritis: NO 2. Height: 5 ft. 2 in. 157.5 cm. Weight: 225.2 lb. oz. 102.150 kg. Patient's BMI: 41.2 3. Vital Signs: BP: 125/82 Pulse: 103 Resp: 18 Temp: 02 Sat: 96 ECG Mon: 4. Pain Intensity: 9 5. Fall Risk: Dizziness: Y Needs help standing or walking: Y Fallen in the last 3 months: N Fall risk comments: NO COVID VACCINE 6. Patient on Blood Thinner: None 7. History of Hypertension: Y 8. Opioid Therapy greater than 6 weeks: Y Opiate Contract Signed: 10/24/20 9. Risk Assessment Tool Provided: low risk-0 10. Functional Assessment Tool: 11. Recreational Drug Use: Never Drug Type: Tobacco Use: Never Smoker Tobacco Type: Amount or Packs/day: How Many Years: Alcohol Use: No Frequency: Quant:
== END ==
LOC: PAIN 03-12 14:05
PROVIDERS: ATTEND Clinical Nurse Specialist Adult Health
DX: M54.2 Cervicalgia (principal); G89.29 Other chronic pain; M25.571 Pain in right ankle and joints of right foot; Z86.16 Personal history of COVID-19; Z79.82 Long term (current) use of aspirin; Z79.899 Other long term (current) drug therapy